=== PATIENT | female | born 1990 | race Caucasian/White ===

== ENCOUNTER → 2017-12-17 | Outpatient (CLI) | payer OTHER ==
[~2017-12-17] MED LIST: ACET325 PO; ACYC800 PO; ALBU90OI INH; AMOCLA500 PO; ANTOXYBENA OT; Acetaminophen650 M1 PO; Bactrim 400-801 EACH PO; Bactrim Ds Tab1 EACH PO; CALCA400CH PO; CEPH500 PO; CIPR250 PO; CIPR500 PO; CRUTCH4 USE; CYCL10 PO; Colace100 MG PO; FLUT44OIA IH; HYDACE5 PO; HYDR1TAB94 PO; Humalog100 UNIT/1 SC; Humalog100 UNIT/3 SC; IBUP400 PO; INSLI100I; INSLI100I SC; INSR10I SUBQ; INSULANI SUBQ; INSULANPEN; INSULANPEN SC; LEVO750 PO; LEVSOD100 PO; LEVSOD50 PO; Lantus100 UNIT/1 SC; METF500; METO10 PO; MULVITMINE PO; NEOPOLHCSU OT; Naprosyn500 MG PO; Norco 5-325 Ta1 EACH PO; ONDA4ODT PO; ONDA8ODT MM; SUMA25 PO; TYLENOL CHILDRENS; Ultram50 MG PO; Zithromax250 MG PO; Zofran Odt4 MG SL; [UNRECOGNIZED DRUG - OTHER]
[2017-12-17 13:43] LABS: Candida species (DNA Probe) Positive (NEGATIVE); G. vaginalis (DNA Probe) Positive (NEGATIVE); T. vaginalis (DNA Probe) Negative (NEGATIVE)
[2017-12-18 02:49] LABS: Source VAG/CERVIX
== END | disposition home or self-care (01) ==
LOC: LAB SHORT 09:45
PROVIDERS: Obstetrics & Gynecology
DX: Z01.411 Encounter for gynecological examination (general) (routine) with abnormal findings (principal); N76.0 Acute vaginitis
CPT/HCPCS: 87480; 87510; 87660; G0123

== ENCOUNTER 2018-12-21 15:57 | Observation (INO) | payer OTHER ==
[~2018-12-21] VITALS: Ht 154.9 cm; Wt 69.5 kg
[~2018-12-21 15:57] MED LIST changes: -INSULANPEN
[2018-12-21 16:38] LABS: Base Excess Venous -12.8 mmol/L; Bicarbonate Venous 15.3 mmol/L (24.0-30.0); PCO2 Venous 33.1 mmHg (38-42); PO2 Venous 50.6 mmHg (38-42); pH Blood Venous 7.25 (7.34-7.37)
[2018-12-21 16:42] LABS: BASOPHILS ABSOLUTE AUTO 0.07 K/mm3 (0.00-0.23); BASOPHILS PERCENT AUTO 1 % (0-2); EOSINOPHILS ABSOLUTE AUTO 0.05 K/mm3 (0.00-0.68); EOSINOPHILS PERCENT AUTO 1 % (0-6); Hematocrit 43.9 % (33.0-51.0); Hemoglobin 14.4 g/dL (11.5-16.0); IMMATURE GRAN ABSOLUTE AUTO 0.04 K/mm3 (0.00-0.10); IMMATURE GRAN PERCENT AUTO 0 % (0-1); LYMPHOCYTES ABSOLUTE AUTO 1.43 K/mm3 (0.84-5.20); LYMPHOCYTES PERCENT AUTO 14 % (21-46); MONOCYTES ABSOLUTE AUTO 0.84 K/mm3 (0.16-1.47); MONOCYTES PERCENT AUTO 8 % (4-13); Mean Corpuscular HGB 27.8 pg (26.0-34.0); Mean Corpuscular HGB Conc 32.8 g/dL (31.5-36.5); Mean Corpuscular Volume 85 fL (80-100); NEUTROPHILS ABSOLUTE AUTO 8.04 K/mm3 (1.96-9.15); NEUTROPHILS PERCENT AUTO 77 % (41-73); RDW Coefficient Variation 14.1 % (11.7-14.2); RDW Standard Deviation 43.6 fL (35.1-46.3); Red Blood Cell Count 5.18 M/mm3 (3.80-5.20); White Blood Cell Count 10.47 K/mm3 (4.00-11.30)
[2018-12-21 16:43] LABS: Mean Platelet Volume 11.2 fL (9.1-12.4); Platelet Count 298 K/mm3 (150-400)
[2018-12-21 17:05] LABS: Alanine Aminotransfer (ALT/SGP 20 U/L (12-78); Albumin, Blood 3.6 g/dL (3.4-5.0); Albumin/Globulin Ratio 0.8 (0.8-1.8); Alk Phos 130 U/L (50-136); Anion Gap 18 mmol/L (6-16); Aspartate Aminotrans (AST/SGOT 16 U/L (12-37); Bilirubin, Total 0.8 mg/dL (0.1-1.0); Blood Urea Nitrogen 16 mg/dL (8-24); CO2, Blood 14 mmol/L (21-32); Calcium, Blood 8.7 mg/dL (8.5-10.1); Chloride, Blood 102 mmol/L (98-108); Creatinine, Blood 0.89 mg/dL (0.40-1.00); Globulin, Blood 4.5 g/dL (2.2-4.0); Glomerular Filtration Rate >60 (60-); Glucose, Blood 448 mg/dL (70-99); Potassium, Blood 4.1 mmol/L (3.5-5.5); Sodium, Blood 134 mmol/L (136-145); Total Protein, Blood 8.1 g/dL (6.4-8.2)
[2018-12-21 18:29] LABS: Source, Urine Clean Catch
[2018-12-21 18:32] LABS: Bilirubin, Urine Neg (Neg); Blood, Urine Neg (Neg); Glucose Qualitative, Urine 4+ (Neg); Ketones, Urine 4+ (Neg); Leukocyte Esterase, Urine Neg (Neg); Nitrite, Urine Neg (Neg); Protein, Urine Neg (Neg); Urobilinogen, Urine NORM (Normal)
[2018-12-21 18:48] LABS: Appearance, Urine Clear (Clear); Color, Urine Yellow (P-Yellow)
[2018-12-21] MEDS ORDERED: Synthroid25 MCG PO (20:59)
[2018-12-21 23:07] LABS: Anion Gap 12 mmol/L (6-16); Blood Urea Nitrogen 14 mg/dL (8-24); CO2, Blood 19 mmol/L (21-32); Calcium, Blood 8.4 mg/dL (8.5-10.1); Chloride, Blood 113 mmol/L (98-108); Creatinine, Blood 0.78 mg/dL (0.40-1.00); Glomerular Filtration Rate >60 (60-); Glucose, Blood 209 mg/dL (70-99); Potassium, Blood 3.4 mmol/L (3.5-5.5)
[2018-12-21 23:11] LABS: Sodium, Blood 144 mmol/L (136-145)
[2018-12-22 04:09] LABS: Adenovirus Not Detected (NOT DETECT); Bordetella pertussis Not Detected (NOT DETECT); Chlamydophila pneumoniae Not Detected (NOT DETECT); Coronavirus 229E Not Detected (NOT DETECT); Coronavirus HKU1 Not Detected (NOT DETECT); Coronavirus NL63 Not Detected (NOT DETECT); Coronavirus OC43 Not Detected (NOT DETECT); Human Metapneumovirus Not Detected (NOT DETECT); Human Rhinovirus/Enterovirus Not Detected (NOT DETECT); Influenza A Not Detected (NOT DETECT); Influenza A/2009-H1 Not Detected (NOT DETECT); Influenza A/H1 Not Detected (NOT DETECT); Influenza A/H3 Not Detected (NOT DETECT); Influenza B Not Detected (NOT DETECT); Mycoplasma pneumoniae Not Detected (NOT DETECT); Parainfluenza Virus 1 Not Detected (NOT DETECT); Parainfluenza Virus 2 Not Detected (NOT DETECT); Parainfluenza Virus 3 Not Detected (NOT DETECT); Parainfluenza Virus 4 Not Detected (NOT DETECT); Respiratory Syncytial Virus Not Detected (NOT DETECT)
[2018-12-22 04:53] LABS: Hematocrit 33.8 % (33.0-51.0); Hemoglobin 11.5 g/dL (11.5-16.0); Mean Corpuscular HGB 27.9 pg (26.0-34.0); Mean Platelet Volume 10.9 fL (9.1-12.4); Platelet Count 265 K/mm3 (150-400); RDW Coefficient Variation 14.2 % (11.7-14.2); RDW Standard Deviation 41.7 fL (35.1-46.3); Red Blood Cell Count 4.12 M/mm3 (3.80-5.20); White Blood Cell Count 8.41 K/mm3 (4.00-11.30)
[2018-12-22 04:55] LABS: Mean Corpuscular Volume 82 fL (80-100)
[2018-12-22 05:17] LABS: Anion Gap 9 mmol/L (6-16); Blood Urea Nitrogen 10 mg/dL (8-24); Bun/Creatinine Ratio 16.1 (12.0-20.0); CO2, Blood 20 mmol/L (21-32); Calcium, Blood 7.9 mg/dL (8.5-10.1); Chloride, Blood 113 mmol/L (98-108); Creatinine, Blood 0.62 mg/dL (0.40-1.00); Glomerular Filtration Rate >60 (60-); Glucose, Blood 189 mg/dL (70-99); Potassium, Blood 3.7 mmol/L (3.5-5.5); Sodium, Blood 142 mmol/L (136-145)
[2018-12-22 05:34] LABS: Alanine Aminotransfer (ALT/SGP 13 U/L (12-78); Albumin, Blood 2.5 g/dL (3.4-5.0); Albumin/Globulin Ratio 0.7 (0.8-1.8); Alk Phos 97 U/L (50-136); Anion Gap 8 mmol/L (6-16); Aspartate Aminotrans (AST/SGOT 11 U/L (12-37); Bilirubin, Total 0.7 mg/dL (0.1-1.0); Blood Urea Nitrogen 10 mg/dL (8-24); Bun/Creatinine Ratio 16.4 (12.0-20.0); CO2, Blood 20 mmol/L (21-32); Calcium, Blood 7.8 mg/dL (8.5-10.1); Chloride, Blood 113 mmol/L (98-108); Creatinine, Blood 0.61 mg/dL (0.40-1.00); Globulin, Blood 3.6 g/dL (2.2-4.0); Glomerular Filtration Rate >60 (60-); Glucose, Blood 185 mg/dL (70-99); Potassium, Blood 3.7 mmol/L (3.5-5.5); Sodium, Blood 141 mmol/L (136-145); Total Protein, Blood 6.1 g/dL (6.4-8.2)
[2018-12-22 11:07] LABS: Anion Gap 11 mmol/L (6-16); Blood Urea Nitrogen 9 mg/dL (8-24); Bun/Creatinine Ratio 13.9 (12.0-20.0); CO2, Blood 19 mmol/L (21-32); Calcium, Blood 8.4 mg/dL (8.5-10.1); Chloride, Blood 110 mmol/L (98-108); Creatinine, Blood 0.65 mg/dL (0.40-1.00); Glomerular Filtration Rate >60 (60-); Glucose, Blood 288 mg/dL (70-99); Potassium, Blood 3.6 mmol/L (3.5-5.5); Sodium, Blood 140 mmol/L (136-145)
== END 2018-12-22 12:35 | disposition home or self-care (01) ==
LOC: ER 15:57 → ICUW 15:58
PROVIDERS: Emergency Medicine; Physician Assistant; ADMIT Internal Medicine
DX: E10.10 Type 1 diabetes mellitus with ketoacidosis without coma (principal); E86.0 Dehydration; F12.90 Cannabis use, unspecified, uncomplicated; E03.9 Hypothyroidism, unspecified; Z79.899 Other long term (current) drug therapy
CPT/HCPCS: 36415; 71046; 80048; 80053; 81003; 81025; 82803; 82947; 85025; 85027; 87486; 87581; 87633; 87798; 96365; 96366; 96375; 96376; 99285-25; G0378; J1815; J2405; J3480; J7030; J7042

== ENCOUNTER → 2019-08-04 | Outpatient (CLI) | payer OTHER ==
[~2019-08-04] MED LIST changes: +Synthroid25 MCG PO
== END ==
LOC: PLD 08:31 → LAB SHORT 08:31
DX: D22.62 Melanocytic nevi of left upper limb, including shoulder (principal)
CPT/HCPCS: 88305

== ENCOUNTER 2021-08-12 13:43 | Inpatient (IN) | payer OTHER ==
[~2021-08-12] VITALS: Ht 157.5 cm; Wt 82.5 kg
[2021-08-12 14:41] LABS: BASOPHILS ABSOLUTE AUTO 0.09 K/mm3 (0.00-0.23); BASOPHILS PERCENT AUTO 1 % (0-2); EOSINOPHILS ABSOLUTE AUTO 0.32 K/mm3 (0.00-0.68); EOSINOPHILS PERCENT AUTO 3 % (0-6); Hematocrit 39.9 % (33.0-51.0); Hemoglobin 13.6 g/dL (11.5-16.0); IMMATURE GRAN ABSOLUTE AUTO 0.04 K/mm3 (0.00-0.10); IMMATURE GRAN PERCENT AUTO 0 % (0-1); LYMPHOCYTES ABSOLUTE AUTO 4.17 K/mm3 (0.84-5.20); LYMPHOCYTES PERCENT AUTO 34 % (21-46); MONOCYTES ABSOLUTE AUTO 0.81 K/mm3 (0.16-1.47); MONOCYTES PERCENT AUTO 7 % (4-13); Mean Corpuscular HGB 29.4 pg (26.0-34.0); Mean Corpuscular HGB Conc 34.1 g/dL (31.5-36.5); Mean Corpuscular Volume 86 fL (80-100); Mean Platelet Volume 12.1 fL (9.1-12.4); NEUTROPHILS ABSOLUTE AUTO 6.94 K/mm3 (1.96-9.15); NEUTROPHILS PERCENT AUTO 56 % (41-73); Platelet Count 387 K/mm3 (150-400); RDW Coefficient Variation 12.7 % (11.7-14.2); RDW Standard Deviation 39.8 fL (35.1-46.3); Red Blood Cell Count 4.62 M/mm3 (3.80-5.20); White Blood Cell Count 12.37 K/mm3 (4.00-11.30)
[2021-08-12 14:59] LABS: Alanine Aminotransfer (ALT/SGP 20 U/L (12-78); Albumin, Blood 2.7 g/dL (3.4-5.0); Albumin/Globulin Ratio 0.5 (0.8-1.8); Alk Phos 134 U/L (50-136); Anion Gap 13 mmol/L (6-16); Aspartate Aminotrans (AST/SGOT 23 U/L (12-37); Bilirubin, Total 0.3 mg/dL (0.1-1.0); Blood Urea Nitrogen 25 mg/dL (8-24); Bun/Creatinine Ratio 29.7 (12.0-20.0); CO2, Blood 22 mmol/L (21-32); Calcium, Blood 8.6 mg/dL (8.5-10.1); Chloride, Blood 89 mmol/L (98-108); Creatinine, Blood 0.84 mg/dL (0.40-1.00); Globulin, Blood 5.1 g/dL (2.2-4.0); Glomerular Filtration Rate >60 (60-); Glucose, Blood 836 mg/dL (70-99); Potassium, Blood 4.1 mmol/L (3.5-5.5); Sodium, Blood 124 mmol/L (136-145); Total Protein, Blood 7.8 g/dL (6.4-8.2)
[2021-08-12 16:25] LABS: Source, Urine Catheter
[2021-08-12 16:32] LABS: Appearance, Urine Clear (Clear); Bilirubin, Urine Neg (Neg); Blood, Urine 3+ (Neg); Color, Urine Yellow (P-Yellow); Glucose Qualitative, Urine 4+ (Neg); Ketones, Urine 2+ (Neg); Leukocyte Esterase, Urine Neg (Neg); Nitrite, Urine Pos (Neg); Protein, Urine 3+ (Neg); Urobilinogen, Urine NORM (Normal)
[2021-08-12] MEDS ORDERED: INSULANPEN SC (16:51)
[2021-08-12] MEDS ORDERED: FURO20 PO (16:53)
[2021-08-12] MEDS ORDERED: HUMALOG KW100 UNIT/1 SC (16:53)
[2021-08-12] MEDS ORDERED: GABA300 PO (16:53)
[2021-08-12] MEDS ORDERED: ZYRTEC10 M2 PO (16:53)
[2021-08-12] MEDS ORDERED: LEVSOD25 PO (16:53)
[2021-08-12 16:54] LABS: Bacteria Mod /hpf; Squamous Epithelial Cells Rare /hpf (Few); White Blood Cells, Urine 0-2 /hpf (0-5)
[2021-08-12 16:55] LABS: Amorphous Mod (0-Heavy)
[2021-08-12 16:58] LABS: U Amphetamine Screen Not Detected; U Barbituate Screen Not Detected; U Benzodiazapine Screen Not Detected; U Buprenorphine Screen Not Detected; U Cocaine Screen Not Detected; U Methadone Screen Not Detected; U Methamphetamine Screen Not Detected; U Opiates Screen Not Detected; U Oxycodone Screen Not Detected; U Phencyclidine Screen Not Detected; U Propoxyphene Screen Not Detected
[2021-08-12 16:59] LABS: U Cannabinoids Screen DETECTED
[2021-08-12 17:12] LABS: SARS-Cov-2 (COVID-19) PCR, MMC POSITIVE (NEGATIVE)
--- NOTE | 2021-08-12 19:16 | NUR ---
PT ADMITTED TO ICU FROM ER AT 1850. PT MINIMALLY RESPONSIVE, WHEN STIMULATED PT APPEARED TO EXHIBITE DECORTICATE POSTURING. INSULIN GTT AT BEDSIDE NOT INFUSING, BS 273 ON ADMIT. NS W 40MEQ K+ INFUSING AT 250CC/HR. PT HYPERTENSIVE, AFEBRILE. AT APPROX 1900 PT APPEARED TO HAVE A SEIZURE, JAW LOCKED, APNEIC, SATS DROPPED INTO 80'S, LIMBS RIGID, PT THEN STARTED TO SHOW DECEREBRATE POSTURING. EYES MIDLINE. NASAL TRUMPET PLACED TO LEFT NARE, O2 PLACED AT 2L. HYDRALIZINE GIVEN FOR HYPERTENSION. DR SANTOS CALLED AND NOTIFIED. CRITICAL CARE CONSULT BEING CONSIDERED. REPORT GIVEN TO ONCOMING ALONDRA.
--- NOTE | 2021-08-12 19:30 | NUR ---
ASSUMED CARE REPORT RECIEVED FROM ALONDRA BARTON. PATIENT LYING IN BED W/ EYES CLOSED. SPO2 IN MID 90'S W/ 2LPM VIA NC. NPA IN RT NARE. PEARSON PATENT AND DRAINING TO GRAVITY. KCL AND INSULIN GTT OFF; NOTHING INF AT THIS TIME. PATIENT HAS 20G IN RT AC AND A 20G IN LT FOREARM. PATIENT APPEARS TO BE GRIPPING HANDS/ARMS TOWARDS CHEST IN A DECORTICATE POSTURE AND MAKING ABNORMAL RHYTHMIC MOVEMENTS W/ ARMS AND HEAD W/O PURPOSE. PATIENT IS HYPERTENSIVE AND TACHYCARDIC AT THIS TIME.
[2021-08-12 20:54] LABS: Ethanol (Alcohol), Blood, Med <3 mg/dL
--- NOTE | 2021-08-12 20:55 | NUR ---
ETT SECURED AT 25 CM AT TEETH
[2021-08-12 21:05] LABS: Acetaminophen, Random <2.0 ug/mL (10.0-30.0)
[2021-08-12 22:07] LABS: PCO2 Arterial 32.2 mmHg (35-45); PO2 Arterial 101 mmHg (80-100); pH Blood Arterial 7.53 (7.35-7.45)
[2021-08-13 00:31] LABS: Anion Gap 6 mmol/L (6-16); Blood Urea Nitrogen 20 mg/dL (8-24); Bun/Creatinine Ratio 23.9 (12.0-20.0); CO2, Blood 26 mmol/L (21-32); Calcium, Blood 8.3 mg/dL (8.5-10.1); Chloride, Blood 107 mmol/L (98-108); Creatinine, Blood 0.84 mg/dL (0.40-1.00); Glomerular Filtration Rate >60 (60-); Glucose, Blood 148 mg/dL (70-99); Potassium, Blood 4.1 mmol/L (3.5-5.5)
[2021-08-13 00:33] LABS: Sodium, Blood 139 mmol/L (136-145)
[2021-08-13 03:33] LABS: BASOPHILS ABSOLUTE AUTO 0.05 K/mm3 (0.00-0.23); BASOPHILS PERCENT AUTO 0 % (0-2); EOSINOPHILS ABSOLUTE AUTO 0.04 K/mm3 (0.00-0.68); EOSINOPHILS PERCENT AUTO 0 % (0-6); Hematocrit 33.5 % (33.0-51.0); Hemoglobin 11.6 g/dL (11.5-16.0); IMMATURE GRAN ABSOLUTE AUTO 0.06 K/mm3 (0.00-0.10); IMMATURE GRAN PERCENT AUTO 0 % (0-1); LYMPHOCYTES ABSOLUTE AUTO 2.99 K/mm3 (0.84-5.20); LYMPHOCYTES PERCENT AUTO 19 % (21-46); MONOCYTES PERCENT AUTO 11 % (4-13); Mean Corpuscular HGB 29.3 pg (26.0-34.0); Mean Corpuscular HGB Conc 34.6 g/dL (31.5-36.5); Mean Corpuscular Volume 85 fL (80-100); Mean Platelet Volume 11.5 fL (9.1-12.4); NEUTROPHILS ABSOLUTE AUTO 11.36 K/mm3 (1.96-9.15); NEUTROPHILS PERCENT AUTO 70 % (41-73); Platelet Count 298 K/mm3 (150-400); RDW Coefficient Variation 12.5 % (11.7-14.2); RDW Standard Deviation 38.1 fL (35.1-46.3); Red Blood Cell Count 3.96 M/mm3 (3.80-5.20)
[2021-08-13 03:52] LABS: Alanine Aminotransfer (ALT/SGP 15 U/L (12-78); Albumin, Blood 1.9 g/dL (3.4-5.0); Albumin/Globulin Ratio 0.5 (0.8-1.8); Alk Phos 82 U/L (50-136); Anion Gap 5 mmol/L (6-16); Aspartate Aminotrans (AST/SGOT 28 U/L (12-37); Bilirubin, Total 0.3 mg/dL (0.1-1.0); Blood Urea Nitrogen 20 mg/dL (8-24); Bun/Creatinine Ratio 21.4 (12.0-20.0); CO2, Blood 29 mmol/L (21-32); Calcium, Blood 7.7 mg/dL (8.5-10.1); Chloride, Blood 106 mmol/L (98-108); Creatinine, Blood 0.94 mg/dL (0.40-1.00); Glomerular Filtration Rate >60 (60-); Glucose, Blood 159 mg/dL (70-99); Potassium, Blood 3.6 mmol/L (3.5-5.5); Sodium, Blood 140 mmol/L (136-145); Total Protein, Blood 5.9 g/dL (6.4-8.2)
[2021-08-13 05:00] LABS: PCO2 Arterial 36.7 mmHg (35-45); PO2 Arterial 137 mmHg (80-100); pH Blood Arterial 7.47 (7.35-7.45)
--- NOTE | 2021-08-13 06:05 | NUR ---
SHIFT SUMMARY/INTUBATION 2008: PATIENT INTUBATED @ [facility] BY DR. TRACEY; RT AND RN AT BEDSIDE. SEE PRODEDURAL NOTE ON INTUBATION. VENT SET AT 16/350/5/30% W/ SPO2 MAINTAINED AT 99-100%. PATIENT REMAINED ON SAME VENT SETTINGS MENTIONED ABOVE. PROPOFOL TITRATED DOWN TO 15MCG/KG/MIN W/ SUPPLEMENTAL ATIVAN IVP PRIOR TO INCREASED STIMULI. PATIENT BEGAN SHIFT W/ DECORTICATE POSTURING AND TRANSITIONED TO DECERIBRATE POSTURING CONCERNING FOR SEIZURES AND WITNESSED BY MD. PUPIL LIGHT REACTION IN RT EYE IMPROVED FROM NO REACTION TO NOW SLUGGISH; LT EYE REMAINS UNRESPONSIVE TO LIGHT, BUT BOTH EQUAL IN SIZE AND ROUND. CBG Q1H PER DR. TRACEY; INSULIN GTT REMAINED OFF. F/U CT HEAD COMPLETED VIRTUAL RADIOLOGY REPORT RECIEVED BY DR. TRACEY.
--- NOTE | 2021-08-13 11:24 | NUR ---
CARE OF PT ASSUMED AT 0700. REST ROOM MATRON AT BEDSIDE AROUND 0700, ASSITED TECH W EEG. PT WITH FREQUENT INTERMIT. DECORTICATE POSTURING. AT TIMES PT POSTURES TO ANY STIMULI AND AT OTHER TIMES NO REACTION TO PAINFUL STIMULI. PUPILS ARE FIXED AND NONREACTIVE TO LIGHT AT 3MM. R PUPIL MAY BE MINIMALLY LARGER WITH A POSSIBLE OVAL SHAPE. PT HAS NO COUGH NO GAG NO SWALLOW. PT DOES ROOT AND SUCKLE ON ETT WHEN STIMULATED. PT HAS + BABINSKI BILAT. PROPOFOL TURNED OFF FOR EEG, POSTURING INCREASED AT THIS TIME. PROPOFOL INCREASED TO 30MCG POST PROCEDURE. DR MEREDITH/DR GENTILE AT BEDSIDE AROUND 0800, FULL UPDATE GIVEN. LP SUCCESSFULLY COMPLETED AT [address] MEREDITH AND DR GENTILE. LP PRESSURE 32, FLUID CLEAR AND SENT TO LAB. PT HAS HAD NO PURPOSEFUL MOVEMENT. LEVOPHED AT 2MCG STARTED TO KEEP MAP >65. PICC LINE BEING PLACED NOW FOR PRESSORS. PT'S SISTER JOSIANE IS NEXT TO KIN. PARENTS ARE ESTRANGED PER SISTER. FATHER'S LOCATION IS UNKNOWN (POSSIBLY LIVES IN [facility]) MOTHER HAS SUBSTANCE ABUSE ISSUES WITH METH AND HEROIN PER SISTER. PT IS NOT IN A CURRENT RELATIONSHIP AND LIVES W ROOM MATE TRICIA. BLOOD SUGARS HAVE BEEN STABLE.
[2021-08-13 12:21] LABS: Appearance, CSF Clear (Clear); Color, CSF No Color (No Color); Glucose, CSF 115 mg/dL (40-70)
[2021-08-13 12:23] LABS: Automated CSF WBC Count 0.003 K/mm3 (0-5); WBC Count, CSF 3 /mm3 (0-5)
[2021-08-13 12:24] LABS: RBC Count, CSF 0 /mm3 (0-0)
[2021-08-13 12:26] LABS: Eosinophils, CSF 7 % (0-0); Lymphocytes, CSF 40 % (40-80); Monocytes, CSF 7 % (15-45); Neutrophils, CSF 47 % (0-6)
[2021-08-13 12:58] LABS: RBC Count, CSF 0 /mm3 (0-0); WBC Count, CSF 1 /mm3 (0-5)
--- NOTE | 2021-08-13 12:58 | NUR ---
NO CHANGE IN NEURO STATUS, PT REMAINS UNRESPONSIVE W PUPILS FIX AT 3/3MM. NO GAG, COUGH, SWALLOW. DECEREBRATE POSTURING TO ANY STIUMLI OTHERWISE NO OTHER MOVEMENT NOTED. PICC PLACED TO [facility].
[2021-08-13 12:59] LABS: Color, CSF No Color (No Color)
[2021-08-13 13:03] LABS: Appearance, CSF Clear (Clear)
[2021-08-13 13:06] LABS: Lymphocytes, CSF 17 % (40-80); Monocytes, CSF 8 % (15-45); Neutrophils, CSF 75 % (0-6)
[2021-08-13 14:10] LABS: Cryptococcus Neoformans/Gattii Not Detected (NOT DETECT); Enterovirus Not Detected (NOT DETECT); Escherichia Coli K1 Not Detected (NOT DETECT); Haemophilus Influenza Not Detected (NOT DETECT); Herpes Simplex Virus 1 Not Detected (NOT DETECT); Herpes Simplex Virus 2 Not Detected (NOT DETECT); Human Herpesvirus 6 Not Detected (NOT DETECT); Human Parechovirus Not Detected (NOT DETECT); Listeria Monocytogenes Not Detected (NOT DETECT); Neisseria Meningitidis Not Detected (NOT DETECT); Streptococcus Agalactiae Not Detected (NOT DETECT); Streptococcus Pneumoniae Not Detected (NOT DETECT); Varicella Zoster Virus Not Detected (NOT DETECT)
--- NOTE | 2021-08-13 14:57 | NUR ---
PIVOT TUBE FEEDS STARTED AT GOAL RATE OF 30CC/HR. 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 NO OTHER CHANGES
--- NOTE | 2021-08-13 15:58 | NUR ---
DURING SUCTIONING DOWN ETT PT DID BRING ARMS INWARD AND ACROSS CHEST; RIGID. APPEARED TO BE DECORTICATE POSTURING AND THEN DECEREBRATE POSTURING AFTERWARDS. NO OTHER CHANGES. PUPILS REMAIN FIXED/NON REACTIVE AT 3/3MM. THICK YELLOW SPUTUM SAMPLE SENT TO LAB
--- NOTE | 2021-08-13 17:14 | NUR ---
PT TO BE TRANSFERED TO MOBILE, OR. AWAITING BED ASSIGNMENT. FAMILY NOTIFIED.
--- NOTE | 2021-08-13 18:33 | NUR ---
REPORT CALLED INTO KEVIN CANTU AT [facility]. PT BREATHING OVER VENT AND COUGHED A FEW TIMES. ABSENT GAG AND SWALLOW. PUPILS REMAIN FIXED AT 3/3MM. PT CONT TO HAVE DECEREBRATE POSTURING. PROPOFOL AT 30MCG, LEVOPHED AT 3MCG
--- NOTE | 2021-08-13 18:57 | NUR ---
LEVOPHED PLACED ON STANDBY FOR HYPERTENSION.
--- NOTE | 2021-08-13 19:04 | NUR ---
PT WITH IRREGULAR RESP ON VENT WELL HYPERTENSIVE, PT IS NOT BRADYV=CARIC, HEART RATE 100-110. DR. MEREDITH NOTIFIED. RT AT BEDSIDE.
--- NOTE | 2021-08-13 19:30 | NUR ---
ASSUMED CARE REPORT RECEIVED FROM ALONDRA ARELLANO. PATIENT SEDATED W/ PROPOFOL @ 30MCG/KG/MIN; EYES CLOSED AND INTUBATED ON AC/VC 16/350/5/30% W/ SPO2 MID 90'S-100%. IRREGULAR RESPIRATORY PATTERN OBSERVED. PICC LINE PRESENT TO [facility] PROPOFOL, NS @ 75ML/HR, NS TKO, AND LEVOPHED ON SB. 18G PERIPHERAL IV PRESENT IN RT WRIST, SALINE LOCKED. PATIENT IS ST W/ RATE 100'S-110'S. PIVOT 1.5 INF @ GOAL RATE OF 30ML/HR W/ 30ML Q4H WATER FLUSHES. AWAITING TRANSFER TO [facility] AT THIS TIME.
--- NOTE | 2021-08-13 23:01 | NUR ---
TRANSFER TO [facility]/REPORT CALLED TO RN NO CHANGES TO PATIENT STATUS DURING SHIFT PRIOR TO TRANSPORT. GROUND TRANSPORT TEAM ARRIVED AND REPORT GIVEN TO FLIGHT RN AND REPROT CALLED TO ALONDRA TORRES @ [facility]. PROPOFOL AND LEVOPHED GIVEN TO TRANSFER TEAM AND 1 BAG OF PATIENT BELONGINGS GIVEN TO TEAM. PATIENT LEFT [facility] @ 2047.
== END 2021-08-13 22:48 | disposition short-term general hospital (02) | DRG 100 ==
LOC: ER 13:43 → ERHOLD 16:11 → ICUE 16:11
PROVIDERS: Emergency Medicine; Family Medicine; Internal Medicine; Internal Medicine Critical Care Medicine; ADMIT Internal Medicine
PROC: 0BH17EZ Insertion of Endotracheal Airway into Trachea, Via Natural or Artificial Opening (ICD-10-PCS; 2021-08-12)
PROC: 5A1945Z Respiratory Ventilation, 24-96 Consecutive Hours (ICD-10-PCS; 2021-08-12)
PROC: 3E033XZ Introduction of Vasopressor into Peripheral Vein, Percutaneous Approach (ICD-10-PCS; principal; 2021-08-13)
PROC: 009U3ZX Drainage of Spinal Canal, Percutaneous Approach, Diagnostic (ICD-10-PCS; 2021-08-13)
DX: G40.901 Epilepsy, unspecified, not intractable, with status epilepticus (principal); G92.9 Unspecified toxic encephalopathy; U07.1 COVID-19; J96.90 Respiratory failure, unspecified, unspecified whether with hypoxia or hypercapnia; E86.0 Dehydration; I16.0 Hypertensive urgency; I95.2 Hypotension due to drugs; T42.75XA Adverse effect of unspecified antiepileptic and sedative-hypnotic drugs, initial encounter; E10.65 Type 1 diabetes mellitus with hyperglycemia; G43.909 Migraine, unspecified, not intractable, without status migrainosus; E03.9 Hypothyroidism, unspecified; Z86.16 Personal history of COVID-19; Z98.51 Tubal ligation status; Z79.4 Long term (current) use of insulin; Z79.899 Other long term (current) drug therapy; Z87.891 Personal history of nicotine dependence
CPT/HCPCS: 31500; 36415; 36569; 36600; 51702; 70450; 71045; 80048; 80053; 80177; 80185; 80186; 81001; 82140; 82803; 82945; 82947; 84157; 84439; 84443; 84702; 85025; 86788; 86789; 87070; 87077; 87086; 87186; 87205; 87483; 89051; 94002; 94003; 95819; 96372-59; 96374-59; 99285-25; A9270; C1751; C9113; G0480; J0133; J0360; J0696; J1650; J1815; J1953; J2060; J2150; J2250; J2704; J3370; J3480; J7030; J7050; J7060; Q2009; U0004

== ENCOUNTER → 2022-01-16 | Outpatient (CLI) | payer OTHER ==
[~2022-01-16] MED LIST changes: +ATORVASTATIN CA20 MG PO; +FURO20 PO; +GABA300 PO; +HUMALOG KW100 UNIT/1 SC; +LEVETIRACETAM PO; +LEVSOD25 PO; +LOSARTAN POTASS25 M2 PO; +METR500 PO; +PHENY30ER PO; +ZYRTEC10 M2 PO
== END | disposition home or self-care (01) ==
LOC: LAB SHORT 19:33 → LAB 19:33
PROVIDERS: Physician Assistant
DX: Z01.419 Encounter for gynecological examination (general) (routine) without abnormal findings (principal); R39.14 Feeling of incomplete bladder emptying
CPT/HCPCS: 87086

== ENCOUNTER 2022-09-25 14:22 | Emergency (ER) | payer OTHER ==
[~2022-09-25] VITALS: Ht 157.5 cm; Wt 79.4 kg
[2022-09-25 15:56] LABS: BASOPHILS ABSOLUTE AUTO 0.08 K/mm3 (0.00-0.23); BASOPHILS PERCENT AUTO 1 % (0-2); EOSINOPHILS ABSOLUTE AUTO 0.26 K/mm3 (0.00-0.68); EOSINOPHILS PERCENT AUTO 3 % (0-6); Hematocrit 36.4 % (33.0-51.0); Hemoglobin 12.1 g/dL (11.5-16.0); IMMATURE GRAN ABSOLUTE AUTO 0.03 K/mm3 (0.00-0.10); IMMATURE GRAN PERCENT AUTO 0 % (0-1); LYMPHOCYTES ABSOLUTE AUTO 2.81 K/mm3 (0.84-5.20); LYMPHOCYTES PERCENT AUTO 28 % (21-46); MONOCYTES ABSOLUTE AUTO 0.77 K/mm3 (0.16-1.47); MONOCYTES PERCENT AUTO 8 % (4-13); Mean Corpuscular HGB 28.1 pg (26.0-34.0); Mean Corpuscular HGB Conc 33.2 g/dL (31.5-36.5); Mean Corpuscular Volume 85 fL (80-100); Mean Platelet Volume 10.5 fL (9.1-12.4); NEUTROPHILS ABSOLUTE AUTO 6.07 K/mm3 (1.96-9.15); NEUTROPHILS PERCENT AUTO 61 % (41-73); Platelet Count 379 K/mm3 (150-400); RDW Coefficient Variation 13.4 % (11.7-14.2); RDW Standard Deviation 41.2 fL (35.1-46.3); White Blood Cell Count 10.02 K/mm3 (4.00-11.30)
[2022-09-25 16:12] LABS: Albumin, Blood 2.2 g/dL (3.4-5.0); Albumin/Globulin Ratio 0.5 (0.8-1.8); Bilirubin, Total 0.3 mg/dL (0.1-1.0); Bun/Creatinine Ratio 19.2 (12.0-20.0); Calcium, Blood 8.6 mg/dL (8.5-10.1); Creatinine, Blood 1.51 mg/dL (0.40-1.00); Globulin, Blood 4.5 g/dL (2.2-4.0); Potassium, Blood 4.7 mmol/L (3.5-5.5); Total Protein, Blood 6.7 g/dL (6.4-8.2)
[2022-09-25] MEDS ORDERED: HUMALOG100 UNIT/1 (19:53)
[2022-09-25] MEDS ORDERED: INSULANI SC (19:54)
[2022-09-25] MEDS ORDERED: GABA300 PO ×2 (19:55→19:56)
[2022-09-25] MEDS ORDERED: LEVSOD25 PO (19:56)
[2022-09-25] MEDS ORDERED: ATOR20 (19:57)
[2022-09-25] MEDS ORDERED: LOSA50 PO (19:57)
[2022-09-25] MEDS ORDERED: LASIX80 MG PO (19:57)
== END 2022-09-25 21:14 | disposition home or self-care (01) ==
LOC: ER 14:22
PROVIDERS: Physician Assistant
DX: I10 Essential (primary) hypertension (principal); E10.9 Type 1 diabetes mellitus without complications; E88.09 Other disorders of plasma-protein metabolism, not elsewhere classified; R60.0 Localized edema; Z87.891 Personal history of nicotine dependence; Z79.4 Long term (current) use of insulin; Z79.899 Other long term (current) drug therapy
CPT/HCPCS: 36415; 80053; 81025; 83880; 84484; 85025; 99284

== ENCOUNTER → 2022-12-23 | Outpatient (CLI) | payer OTHER ==
[~2022-12-23] MED LIST changes: +AMLO10 PO; +ATOR20 PO; +BUDESONIDE1 MG/2 M5 IH; +BUME1 PO; +CATAPRES0.1 MG PO; +Diflucan100 MG PO; +HUMALOG100 UNIT/1; +INSULANI SC; +LASIX80 MG PO; +LOSA50 PO; +SPIR50 PO
[2022-12-23 18:30] LABS: Source, Urine Voided
[2022-12-23 19:19] LABS: Appearance, Urine Cloudy (Clear); Bilirubin, Urine Neg (Neg); Blood, Urine 1+ (Neg); Glucose Qualitative, Urine Neg (Neg); Ketones, Urine Neg (Neg); Leukocyte Esterase, Urine 2+ (Neg); Nitrite, Urine Neg (Neg); Protein, Urine 4+ (Neg); Urobilinogen, Urine NORM (Normal)
[2022-12-23 19:43] LABS: Color, Urine Pale Yellow (P-Yellow)
[2022-12-23 19:45] LABS: White Blood Cells, Urine 50-100 /hpf (0-5)
[2022-12-23 19:46] LABS: Bacteria Many /hpf; Granular Casts 0-2 /lpf (0); Red Blood Cells, Urine 0-2 /hpf (0-2); Squamous Epithelial Cells Mod /hpf (Few)
== END | disposition home or self-care (01) ==
LOC: LAB SHORT 12:00
PROVIDERS: Family Medicine
DX: R39.14 Feeling of incomplete bladder emptying (principal)
CPT/HCPCS: 81001; 87077; 87086; 87186

== ENCOUNTER 2023-01-10 11:34 | Inpatient (IN) | payer OTHER ==
[~2023-01-10] VITALS: Ht 154.9 cm; Wt 112.1 kg
[2023-01-10] MEDS ORDERED: CEPH500 PO (12:12)
[2023-01-10] MEDS ORDERED: ZEBUTAL 50-3251 EAC1 (12:13)
[2023-01-10] MEDS ORDERED: ZEBUTAL 50-3251 EAC1 PO (12:13)
[2023-01-10 12:57] LABS: BASOPHILS ABSOLUTE AUTO 0.07 K/mm3 (0.00-0.23); BASOPHILS PERCENT AUTO 1 % (0-2); EOSINOPHILS PERCENT AUTO 7 % (0-6); Hematocrit 29.9 % (33.0-51.0); Hemoglobin 9.5 g/dL (11.5-16.0); IMMATURE GRAN ABSOLUTE AUTO 0.02 K/mm3 (0.00-0.10); IMMATURE GRAN PERCENT AUTO 0 % (0-1); LYMPHOCYTES ABSOLUTE AUTO 2.09 K/mm3 (0.84-5.20); LYMPHOCYTES PERCENT AUTO 23 % (21-46); MONOCYTES ABSOLUTE AUTO 0.86 K/mm3 (0.16-1.47); MONOCYTES PERCENT AUTO 10 % (4-13); Mean Corpuscular HGB 27.5 pg (26.0-34.0); Mean Corpuscular HGB Conc 31.8 g/dL (31.5-36.5); Mean Corpuscular Volume 86 fL (80-100); Mean Platelet Volume 10.7 fL (9.1-12.4); NEUTROPHILS ABSOLUTE AUTO 5.36 K/mm3 (1.96-9.15); NEUTROPHILS PERCENT AUTO 60 % (41-73); Platelet Count 291 K/mm3 (150-400); RDW Coefficient Variation 13.9 % (11.7-14.2); RDW Standard Deviation 42.8 fL (35.1-46.3); Red Blood Cell Count 3.46 M/mm3 (3.80-5.20)
[2023-01-10 13:26] LABS: Albumin, Blood 2.2 g/dL (3.4-5.0); Albumin/Globulin Ratio 0.5 (0.8-1.8); Bilirubin, Total 0.2 mg/dL (0.1-1.0); Bun/Creatinine Ratio 17.7 (12.0-20.0); Calcium, Blood 8.4 mg/dL (8.5-10.1); Creatinine, Blood 2.6 mg/dL (0.40-1.00); Globulin, Blood 4.7 g/dL (2.2-4.0); Potassium, Blood 4.5 mmol/L (3.5-5.5); Thyroid Stimulating Hormone 13.5 uIU/mL (0.360-4.800); Total Protein, Blood 6.9 g/dL (6.4-8.2)
[2023-01-10 13:50] LABS: Magnesium, Blood 2.8 mg/dL (1.6-2.4); Phosphorus, Blood 5.1 mg/dL (2.5-4.9)
--- NOTE | 2023-01-10 18:41 | NUR ---
pt arrived to 326 via gurney from ED, report obtained, pt able to stand and tx indep, a/ox4, pleasant and cooperative with care, follows commands well, denies pain, states just sob, and pressure in her belly, lungs are clear t/o, resp even and unlabored, currently on 4 liters 02 via n/c, resp even and unlabored at rest, does get sob with exertion, no cough noted, hrr, +2 edema noted to b/l le, cap refill <3 sec, vs stable, afebrile, piv site clear and patent, btx4, abd round soft in upper quads, more firm in lower, reports only one void since she had bumex, is due for lasix now, skin c/w/d, esme clark, oriented to room layout and call sytem, call light in reach.
[2023-01-11 05:42] LABS: BASOPHILS ABSOLUTE AUTO 0.06 K/mm3 (0.00-0.23); BASOPHILS PERCENT AUTO 1 % (0-2); EOSINOPHILS ABSOLUTE AUTO 0.61 K/mm3 (0.00-0.68); EOSINOPHILS PERCENT AUTO 7 % (0-6); Hematocrit 27.5 % (33.0-51.0); Hemoglobin 8.6 g/dL (11.5-16.0); IMMATURE GRAN ABSOLUTE AUTO 0.02 K/mm3 (0.00-0.10); IMMATURE GRAN PERCENT AUTO 0 % (0-1); LYMPHOCYTES ABSOLUTE AUTO 2.19 K/mm3 (0.84-5.20); LYMPHOCYTES PERCENT AUTO 25 % (21-46); MONOCYTES ABSOLUTE AUTO 0.74 K/mm3 (0.16-1.47); MONOCYTES PERCENT AUTO 9 % (4-13); Mean Corpuscular HGB 27.2 pg (26.0-34.0); Mean Corpuscular HGB Conc 31.3 g/dL (31.5-36.5); Mean Corpuscular Volume 87 fL (80-100); Mean Platelet Volume 10.9 fL (9.1-12.4); NEUTROPHILS ABSOLUTE AUTO 4.99 K/mm3 (1.96-9.15); NEUTROPHILS PERCENT AUTO 58 % (41-73); Platelet Count 258 K/mm3 (150-400); RDW Standard Deviation 43.2 fL (35.1-46.3); Red Blood Cell Count 3.16 M/mm3 (3.80-5.20); White Blood Cell Count 8.61 K/mm3 (4.00-11.30)
[2023-01-11 06:14] LABS: Albumin, Blood 1.9 g/dL (3.4-5.0); Albumin/Globulin Ratio 0.5 (0.8-1.8); Bilirubin, Total 0.4 mg/dL (0.1-1.0); Bun/Creatinine Ratio 18.9 (12.0-20.0); Creatinine, Blood 2.64 mg/dL (0.40-1.00); Globulin, Blood 4.1 g/dL (2.2-4.0); Magnesium, Blood 2.8 mg/dL (1.6-2.4); Phosphorus, Blood 5.2 mg/dL (2.5-4.9); Potassium, Blood 4.3 mmol/L (3.5-5.5)
--- NOTE | 2023-01-11 06:58 | NUR ---
ACCOUNTING CLERKS SUPERVISOR SUMMARY: A&Ox4. PLEASANT AND COOPERATIVE WITH CARE. CALLS APPROPRIATELY AND IS ABLE TO COMMUNICATE NEEDS EFFECTIVELY. INDEPENDENT IN ROOM. INDEPENDENT IN ROOM. LBM >1 WEEK AGO. BOWEL PROTOCOL INITIATED LAST NIGHT WITHOUT RELIEF. STRICT Is/Os. RECEIVED 40mg IV LASIX AND 2mg IV BUMEX WITH OUTPUT OF 1300mL DURING SHIFT. BLEs 2+ EDEMA. SCHEDULED FOR ECHO TODAY. MAINTAINING SPO2 >92% 4L/min VIA NC. LABS ORDERED THIS AM; NO CRITICAL RESULTS RECEIVED AT THIS TIME. WILL REPORT TO ONCOMING RN.
--- NOTE | 2023-01-11 09:00 | NUR ---
pt laying in bed with eyes closed, wakes easily, s.o. in room, a/ox4, cooperative with care, follows commands well, denies pain at this time, states she slept ok, lungs are clear in upper bustos, dim course in bases, currently on 4 liters 02 via n/c, resp even and unlabored, states she might be breathing a bit better than when she came in, no cough noted, hrr, 2+ edema noted to b/l le, ppp+2, cap refill <3 sec, vs stable, afebrile, iv site to rac is clear and patent, btx4, abd round semi firm, voids without diff, pt hasn't had a bm in a while so started her on bowel care, skin c/w/d, esme clark, call light in reach.
--- NOTE | 2023-01-11 18:18 | NUR ---
pt doing ok, she states she has been voiding more today, still no bm, gave mom melvi, pt is asking for applejuice, spoke to her about just drinking water, to not raise blood sugars, she had a shower today, remains on four liters, no acute changes this shift. call light in reach.
--- NOTE | 2023-01-11 23:32 | NUR ---
PATIENT CALLED STAFF STATING HAVING DIFFICULTY CATCHING BREATH. SATTING 92% ON 5L/min VIA NC. BP 136/77, HR 101, ORAL TEMP 99.2 AND RESPIRATIONS OF 26. DIFFICULTY FINISHING SENTENCES. BLEs 3+ EDEMA. + FLUID BALANCE OF 1100 AFTER RECEIVING 4mg BUMETANIDE TODAY. CALL TO RT WHO ADMINISTERED BREATHING Tx. CALL TO DR DIETZ: ORDER FOR CXR, 2mg BUMETANIDE IV, BIPAP, CONTINUOUS BiOx AND TELE. PT DOING BETTER AFTER INITIATION OF BIPAP AND ADMINISTRATION OF BUMETANIDE.
[2023-01-12 06:12] LABS: BASOPHILS ABSOLUTE AUTO 0.04 K/mm3 (0.00-0.23); BASOPHILS PERCENT AUTO 1 % (0-2); EOSINOPHILS ABSOLUTE AUTO 0.35 K/mm3 (0.00-0.68); EOSINOPHILS PERCENT AUTO 5 % (0-6); Hematocrit 24.8 % (33.0-51.0); Hemoglobin 7.8 g/dL (11.5-16.0); IMMATURE GRAN ABSOLUTE AUTO 0.01 K/mm3 (0.00-0.10); IMMATURE GRAN PERCENT AUTO 0 % (0-1); LYMPHOCYTES ABSOLUTE AUTO 2.14 K/mm3 (0.84-5.20); LYMPHOCYTES PERCENT AUTO 32 % (21-46); MONOCYTES ABSOLUTE AUTO 0.71 K/mm3 (0.16-1.47); MONOCYTES PERCENT AUTO 11 % (4-13); Mean Corpuscular HGB 27.2 pg (26.0-34.0); Mean Corpuscular HGB Conc 31.5 g/dL (31.5-36.5); Mean Corpuscular Volume 86 fL (80-100); NEUTROPHILS ABSOLUTE AUTO 3.49 K/mm3 (1.96-9.15); NEUTROPHILS PERCENT AUTO 52 % (41-73); Platelet Count 243 K/mm3 (150-400); RDW Coefficient Variation 13.9 % (11.7-14.2); RDW Standard Deviation 42.8 fL (35.1-46.3); Red Blood Cell Count 2.87 M/mm3 (3.80-5.20); White Blood Cell Count 6.74 K/mm3 (4.00-11.30)
[2023-01-12 06:23] LABS: Albumin, Blood 1.8 g/dL (3.4-5.0); Anion Gap 5 mmol/L (6-16); Blood Urea Nitrogen 52 mg/dL (8-24); CO2, Blood 25 mmol/L (21-32); Calcium, Blood 8.2 mg/dL (8.5-10.1); Chloride, Blood 107 mmol/L (98-108); Creatinine, Blood 2.73 mg/dL (0.40-1.00); Glomerular Filtration Rate 23 (60-); Glucose, Blood 354 mg/dL (70-99); Phosphorus, Blood 5.2 mg/dL (2.5-4.9); Potassium, Blood 4.9 mmol/L (3.5-5.5); Sodium, Blood 137 mmol/L (136-145)
--- NOTE | 2023-01-12 06:44 | NUR ---
FIELD SALES TRAINER SUMMARY: A&Ox4. PLEASANT AND COOPERATIVE WITH CARE. CALLS APPROPRIATELY AND IS ABLE TO COMMUNICATE NEEDS EFFECTIVELY. EPISODE OF DYSPNEA AND SOB LAST NIGHT IN WHICH PT UNABLE TO CATCH BREATH. WAS SATTING 92% 5L/min VIA NC. PLACED ON BIPAP, ADDITIONAL IV DOSE BUMEX 2MG AND BEDSIDE CXR + LIKELY PNA. INITIATED CONTINUOUS BI-OX AND TELE. -100 FLUID BALANCE. AWAITING ECHO. LABS DRAWN THIS AM. NO CRITICAL VALUES RECEIVED AT THIS TIME. REPORT TO ONCOMING RN.
--- NOTE | 2023-01-12 18:03 | NUR ---
SHIFT SUMMARY PT INDEPENDENT IN TO BATHROOM. SOB IMPROVED FROM YESTERDAY WITH ACTIVITY. OFF BIPAP SINCE MORNING AND SATS IN LOW TO MID 90'S ON 5L/M. WHEN SLEEPING SATS UP TO 98%. O2 DROPPED TO 4L/M. WILL MONITER FOR NEED TO CHANGE. PROVIDED EDUCATION TO PT ABOUT FLUID RESTRICTION THIS MORNING. ATTEMPTED TO PROVIDE FURTHER EDUCATION AT LUNCH WHEN 480ML WAS TAKEN TO ROOM ON LUNCH TRAY. EXPLAINED TO PT SHE WOULD HAVE NO EXTRA LIQUIDS OR ICE SHE COULD HAVE IF SHE CONTINUED TO DRINK THAT AMOUNT WITH EACH MEAL. STATED SHE WOULD KEEP HER 2 DRINKS ON HER LUNCH TRAY. FRIEND AT BEDSIDE AND TALKED WITH PT ABOUT NEED FOR FLUID RESTRICTION WELL. CHANGED MEAL TRAYS TO HAVE RESTRICTION. AT SUPPERTIME PT BECAME UPSET ABOUT 120ML CUP OF MILK ON TRAY AND AFTER EMPTYING CUP IN ICE THROUGH IT AGAINST THE DOOR. CRYING AND YELLING AT BOYFRIEND ABOUT WANTING TO GO HOME.
[2023-01-12 21:02] LABS: Percent Saturation 13.5 % (15.0-50.0)
[2023-01-13 05:45] LABS: Hematocrit 26.2 % (33.0-51.0); Hemoglobin 8.3 g/dL (11.5-16.0); Mean Corpuscular HGB 26.9 pg (26.0-34.0); Mean Corpuscular HGB Conc 31.7 g/dL (31.5-36.5); Mean Corpuscular Volume 85 fL (80-100); Mean Platelet Volume 10.7 fL (9.1-12.4); Platelet Count 265 K/mm3 (150-400); Red Blood Cell Count 3.08 M/mm3 (3.80-5.20); White Blood Cell Count 8.81 K/mm3 (4.00-11.30)
--- NOTE | 2023-01-13 06:23 | NUR ---
PATIENT ALERT AND ORIENTED X4, SR RHYTHM ON TELE4L NC, INDEPENDENT, PATIENT REFUSED PULSE OXIMETER AT 0530 THIS MORNING, 22 RIGHT HAND SL, ADA DIET, ACHS, 1500 CC FLUID RESTRICTION, SMALL BM 3/6, +3 EDEMA ENTIRE BODY, PATIENT WAS VERY IRRITATED WITH STOCK FEEDER AND WAS FRUSTRATED TO THE POINT THAT SHE WAS VERY RUDE TO HER, I INTERVENED AND MAXIMILIANO HER MORNING LABS, FAN GIVEN FOR COMFORT, NO EVENTS OTHERWISE
[2023-01-13 07:20] LABS: Anion Gap 4 mmol/L (6-16); Blood Urea Nitrogen 59 mg/dL (8-24); CO2, Blood 26 mmol/L (21-32); Calcium, Blood 8.6 mg/dL (8.5-10.1); Chloride, Blood 107 mmol/L (98-108); Cholesterol 129 mg/dL (50-200); Creatinine, Blood 3.11 mg/dL (0.40-1.00); Glomerular Filtration Rate 20 (60-); Glucose, Blood 215 mg/dL (70-99); Magnesium, Blood 3.1 mg/dL (1.6-2.4); Phosphorus, Blood 5.3 mg/dL (2.5-4.9); Potassium, Blood 5.3 mmol/L (3.5-5.5); Sodium, Blood 137 mmol/L (136-145); Triglycerides 45 mg/dL (30-140)
--- NOTE | 2023-01-13 19:47 | NUR ---
PT ON 4L/M OF O2 TODAY AND APPEARED TO TOLERATE THROUGH THE DAY. NO PULSE OXIMETER ON DUE TO HER REFUSAL TO CONTINUE WEARING IT. BOYFRIEND STATED IT BEEPED FREQUENTLY BUT NOT WHY. CIVIL PROCESS SERVER REPORTED AFTER SHOWER THIS AFTERNOON THAT PT HADN'T WORN O2 IN TO SHOWER AND CAME OUT WITH PULSE OX OF 79%. O2 REPLACED AT 4-5L/M AND SLOWLY RETURNED TO 90%. HAS NOT APPEARED OR REPORTED ANY RESPIRATORY DISTRESS SINCE SHOWER. BOYFRIEND SUGGESTED TRYING TO SEE IF SHE TOLERATED HER O2 BEING DECREASED AND PT AGREEABLE TO REPLACE CONTINUOUS PULSE OX FOR A SHORT TIME TO MONITER TOLERATION. ONCE IT WAS ON SATS WERE AT 83%. INCREASED O2 TO 7L/M WITH NO CHANGE IN SATS. BIPAP PLACED AND O2 RUNNING AT 10/M WITH SATS MAINTAINING 87-88%. O2 INCREASED TO 15L/M AND SATS UP TO 94%. NOTIFIED MD AND ORDER FOR TRANSFER TO PCU. PT AND BOYFRIEND NOTIFIED. REPORT CALLED TO NATI CANTU IN PCU AND PT TRANSFERRED WITH BIPAP ON.
--- NOTE | 2023-01-13 20:00 | NUR ---
ARRIVAL TO [facility] PT ARRIVED TO [facility] AT APPROXIMATELY 1999. PT TRANSFERED FROM MEDICAL FLOOR BED TO PCU BED WITH SBA ASSIST. PT AMBULATED INTO BATHROOM IND. PT ARRIVED ON BIPAP 26/10 15L BLEED IN, SpO2> 92%, REPORTS SOB WITH ACTIVITY AND LYING FLAT, DENIES SOB AT REST. BP ELEVATED, ADMINISTERED SCHEDULED BP MEDICATION. SINUS TACH 100's, DENIES CP/PRESSURE. PT DENIES PAIN, IS RESTING COMFORTABLY IN BED. ORIENTED TO UNIT/CALL LIGHT. CALL LIGHT IN REACH, BED IN LOWEST POSITION. PT's SIGNIFICANT OTHER AT BEDSIDE.
[2023-01-14 03:48] LABS: Hematocrit 25.2 % (33.0-51.0); Hemoglobin 8.3 g/dL (11.5-16.0); Mean Corpuscular HGB 27.7 pg (26.0-34.0); Mean Corpuscular HGB Conc 32.9 g/dL (31.5-36.5); Mean Corpuscular Volume 84 fL (80-100); Mean Platelet Volume 10.5 fL (9.1-12.4); Platelet Count 256 K/mm3 (150-400); RDW Coefficient Variation 14.1 % (11.7-14.2); RDW Standard Deviation 43.6 fL (35.1-46.3); White Blood Cell Count 8.68 K/mm3 (4.00-11.30)
[2023-01-14 04:05] LABS: Albumin, Blood 2.7 g/dL (3.4-5.0); Anion Gap 1 mmol/L (6-16); Blood Urea Nitrogen 60 mg/dL (8-24); Bun/Creatinine Ratio 21.1 (12.0-20.0); CO2, Blood 31 mmol/L (21-32); Calcium, Blood 8.7 mg/dL (8.5-10.1); Chloride, Blood 105 mmol/L (98-108); Creatinine, Blood 2.85 mg/dL (0.40-1.00); Glomerular Filtration Rate 22 (60-); Glucose, Blood 165 mg/dL (70-99); Magnesium, Blood 3.2 mg/dL (1.6-2.4); Phosphorus, Blood 4.8 mg/dL (2.5-4.9); Potassium, Blood 4.3 mmol/L (3.5-5.5); Sodium, Blood 137 mmol/L (136-145)
--- NOTE | 2023-01-14 05:11 | NUR ---
SHIFT SUMMARY PT A&Ox4, CALLS AND COMMUNICATES NEEDS APPROPRIATELY. VSS, SpO2> 92% ON BIPAP 18/12 15L BLEED IN, REPORTS SOB WITH ACTIVITY AND LYING FLAT, DENIES SOB AT REST. BP ELEVATED, MANAGED PER EMAR. SINUS 90's, SINUS TACH 100'S WITH ACTIVITY. DENIES CP/PRESSURE. PT DENIES PAIN. SIGNIFICANT OTHER AT BEDSIDE. PT IND IN ROOM, MANAGES BIPAP APPROPRIATELY IND. NO OTHER EVENTS, WILL REPORT TO ONCOMING RN.
--- NOTE | 2023-01-14 18:44 | NUR ---
PT SUMMARY: PT TRANSITIONED BACK TO MEDICAL STATUS NO TELE. PT TOLERATING O2 AT 4L VIA HIFLO SATS KEPT ABOVE 90% PT STILL HAS SOME SOB WITH EXERTION, WAS ABLE TO GET IN THE SHOWER TODAY WITH NO ISSUES. POOR APPETITE PT STATED SHE HAD SOME NAUSEA AND STOMACH UPSET MEDICATED WITH ZOFRAN TWICE FOR THE SHIFT, REFUSED BREAKFAST AND LUNCH, ALSO ON BOWEL CARE WAS GIVEN MIRALAX AND MOM WITH NO RESULT. PT CONTINUES TO DIURESE WITH ALBUMIN AND BUMEX. PT HAS BEEN GETTING UP TO USE THE BATHROOM SIGNIFICANT OTHER IN THE ROOM HELPING OUT PT A LOT. PT HAD ATLEAST 2500 URINE OUTPUT FOR THE SHIFT. PT DENIES ANY KIND OF PAIN, VITALS HAS BEEN STABLE. NO OTHER ISSUES REPORTED WILL REPORT TO ONCOMING SHIFT
--- NOTE | 2023-01-14 19:55 | NUR ---
ASSESSMENT/ASSUMED CARE PT SITTING UP IN BED WITH BOYFRIEND AT BEDSIDE. PT STATES,"I'M FEELING MUCH BETTER". LUNGS CLEAR BUT DECREASED THROUGHTOUT ON 6 LITERS VIA HFNC. RESP EVEN AND NONLABORED. HEART RATE REGULAR AND BP STABLE. 3+ PITTING EDEMA NOTED TO LOWER EXT. PT STATES," IT IS LOOKING A LOT BETTER THAN WHAT IT WAS BEFORE THE LASIX". BT+ ABD ROUND AND SOFT. PT STATES,"MY ABD IS BIGGER THAN NORMAL BUT IMPROVING". POWER GLIDE TO RIGHT UPPER ARM SALINE LOCKED. FLUSHES WITHOUT DIFFICULTY. SITE CLEAR AND DRSG INTACT. PT MOVING SELF AROUND IN BED, AND UP TO BATHROOM AD CATINA. PT REQUESTING BIPAP TONIGHT, WILL CALL WHEN READY FOR USE. HS MEDS GIVEN. PT C/O CONSTIPATION, MIRLAX GIVEN ALONG WITH HS MEDS.
[2023-01-15 05:15] LABS: Hematocrit 23.4 % (33.0-51.0); Hemoglobin 7.6 g/dL (11.5-16.0); Mean Corpuscular HGB 27.7 pg (26.0-34.0); Mean Corpuscular HGB Conc 32.5 g/dL (31.5-36.5); Mean Corpuscular Volume 85 fL (80-100); Mean Platelet Volume 10.6 fL (9.1-12.4); Platelet Count 225 K/mm3 (150-400); RDW Standard Deviation 43.3 fL (35.1-46.3); Red Blood Cell Count 2.74 M/mm3 (3.80-5.20); White Blood Cell Count 5.87 K/mm3 (4.00-11.30)
[2023-01-15 05:38] LABS: Albumin, Blood 2.9 g/dL (3.4-5.0); Anion Gap 3 mmol/L (6-16); Blood Urea Nitrogen 60 mg/dL (8-24); Bun/Creatinine Ratio 19.4 (12.0-20.0); CO2, Blood 31 mmol/L (21-32); Calcium, Blood 8.5 mg/dL (8.5-10.1); Chloride, Blood 104 mmol/L (98-108); Creatinine, Blood 3.09 mg/dL (0.40-1.00); Glomerular Filtration Rate 20 (60-); Glucose, Blood 96 mg/dL (70-99); Magnesium, Blood 3.1 mg/dL (1.6-2.4); Phosphorus, Blood 5.2 mg/dL (2.5-4.9); Potassium, Blood 3.8 mmol/L (3.5-5.5); Sodium, Blood 138 mmol/L (136-145)
--- NOTE | 2023-01-15 05:57 | NUR ---
SHIFT SUMMARY PT RESTING QUIETLY. USING BIPAP AT NIGHT WHILE SLEEPING. SETTINGS 18/12 WITH 12 LITERS O2. SPO2 91-97%. PT UP AD CATINA IN ROOM. VSS. SO AT BEDSIDE. NO ACUTE CHANGE. REPORT TO ON COMING NURSE
--- NOTE | 2023-01-15 07:45 | NUR ---
AM ASSESSMENT: Pt resting in bed with sig other at bedside. Pt states that she has a migraine starting. Will medicate per orders. LS diminished, HR reg. BT positive. Abd distended and firm with edema noted. +2 edema in BLE and up into abd. Pt states that the swelling has improved. PUlses palp. CAll light in reach. Will continue to monitor.
--- NOTE | 2023-01-15 13:03 | NUR ---
Report called to medical floor. Pt taken to room 333 via w/c. Stable at time of transfer.
--- NOTE | 2023-01-15 17:42 | NUR ---
SHIFT SUMMARY PT A&OX4 AND IN PLEASENT MOOD SINCE ARRIVAL TO UNIT. IND IN ROOM, SPOUSE AT BEDSIDE-ASSISTING W/ CARE. CALL LIGHT W/IN REACH. HTN NOTED. TOLERATING PO INTAKE. SHOWERED THIS SHIFT. 4L NC @ THIS TIME.
--- NOTE | 2023-01-16 04:15 | NUR ---
SHIFT UNREMARKABLE. PT TOOK 2100 MEDICATIONS AND HAS SLEPT THROUGH MUCH OF REMAINDER OF SHIFT. CALLS APPROPRIATELY, AOX4. PT BOYFRIEND HAS REMAINED AT PT SIDE THROUGHOUT SHIFT AND HAS ASSISTED WITH HER AMBULATION AND BASIC NEEDS. PT DENIES PAIN OR DISCOMFORT. CALL LIGHT LEFT WITHIN REACH.
[2023-01-16 05:49] LABS: Hematocrit 25.9 % (33.0-51.0); Hemoglobin 8.1 g/dL (11.5-16.0); Mean Corpuscular HGB 26.9 pg (26.0-34.0); Mean Corpuscular HGB Conc 31.3 g/dL (31.5-36.5); Mean Corpuscular Volume 86 fL (80-100); Platelet Count 268 K/mm3 (150-400); RDW Coefficient Variation 13.9 % (11.7-14.2); RDW Standard Deviation 43.4 fL (35.1-46.3); Red Blood Cell Count 3.01 M/mm3 (3.80-5.20); White Blood Cell Count 5.99 K/mm3 (4.00-11.30)
[2023-01-16 06:21] LABS: Albumin, Blood 3.7 g/dL (3.4-5.0); Anion Gap 5 mmol/L (6-16); Blood Urea Nitrogen 57 mg/dL (8-24); Bun/Creatinine Ratio 16.8 (12.0-20.0); CO2, Blood 32 mmol/L (21-32); Calcium, Blood 8.7 mg/dL (8.5-10.1); Chloride, Blood 102 mmol/L (98-108); Creatinine, Blood 3.39 mg/dL (0.40-1.00); Glomerular Filtration Rate 18 (60-); Glucose, Blood 66 mg/dL (70-99); Phosphorus, Blood 5.7 mg/dL (2.5-4.9); Potassium, Blood 4.1 mmol/L (3.5-5.5); Sodium, Blood 139 mmol/L (136-145)
[2023-01-16 08:47] LABS: Albumin, Blood 3.6 g/dL (3.4-5.0); Anion Gap 4 mmol/L (6-16); Blood Urea Nitrogen 59 mg/dL (8-24); CO2, Blood 32 mmol/L (21-32); Calcium, Blood 8.9 mg/dL (8.5-10.1); Chloride, Blood 101 mmol/L (98-108); Creatinine, Blood 3.27 mg/dL (0.40-1.00); Glomerular Filtration Rate 19 (60-); Glucose, Blood 97 mg/dL (70-99); Phosphorus, Blood 5.8 mg/dL (2.5-4.9); Sodium, Blood 137 mmol/L (136-145)
--- NOTE | 2023-01-16 18:00 | NUR ---
SHIFT SUMMARY A&O X 4. VSS. BLOOD SUGARS HAVE BEEN WELL CONTROLLED TODAY. COVERED WITH INSULIN ORDERED. PT IS CONCERNED SHE HAS NOT HAD A BM FOR ALMOST A WEEK. BOWEL CARE INITIATED TODAY, OIL RETENTION ENEMA GIVEN ALONG WITH ALL ORQAL
--- NOTE | 2023-01-16 18:05 | NUR ---
SHIFT SUMMARY A&O X 4. VSS. PT CONCERNED SHE HAS NOT HAD A BM FOR ALMOST A WEEK. BOWEL CARE INITIATED TODAY WITH ORAL MEDS & A SUPPOSITORY & OIL RETENETION ENEMA GIVEN WITH NO RESULTS. PLACED CALL TO MD & RECEIVED ORDERS FOR A SOAPS SUDS ENEMA. PT WANTS TO WAIT TIL AFTER DINNER D/T THE FACT SHE JUST GOT OUT OF THE SHOWER. WAS ABLE TO WEAN HER O2 DOWN TO 4 L'S WITH SATS REMAINING >90%. TRIED 3.5 L'S BUT O2 SATS DROPPED TO <90%. HOME O2 EVAL DONE TODAY. (SEE RT NOTES). PT IS INDEPENDENT IN THE ROOM FOR ALL ADL'S. HER BF STAYED THE SHIFT AND ASSISTED WITH HER ADL'S.
--- NOTE | 2023-01-17 04:29 | NUR ---
SHIFT MOSTLY UNREMARKABLE. 2100 INSULIN GLARGINE WAS ADMINISTERED AFTER CBG WAS 130. AT 0045, PT HAD CBG OF 48. GAVE 8 OZ OF JUICE, PUDDING. RECHECKED CBG AT ~0110 AT WHICH TIME IT WAS 73. GAVE VIRY CRACKERS AND PEANUT BUTTER BEFORE PATIENT WENT BACK TO SLEEP. PATIENT WAS THEN ABLE TO SLEEP THROUGH MOST OF NIGHT. WILL PASS ONTO DAY SHIFT POSSIBILITY OF REDUCING HS GLARGINE ADMINISTRATION TO AVOID CONSEQUENCE OF HYPOGLYCEMIA. OTHERWISE PT HAS BEEN IN GOOD CONDITION AND HAS BEEN ABLE TO SLEEP THROUGH MUCH OF NIGHT. CALL LIGHT LEFT WITHIN REACH.
[2023-01-17 05:16] LABS: Hematocrit 24.1 % (33.0-51.0); Hemoglobin 7.5 g/dL (11.5-16.0); Mean Corpuscular HGB Conc 31.1 g/dL (31.5-36.5); Mean Corpuscular Volume 87 fL (80-100); Mean Platelet Volume 11.4 fL (9.1-12.4); Platelet Count 251 K/mm3 (150-400); RDW Standard Deviation 44.1 fL (35.1-46.3); Red Blood Cell Count 2.78 M/mm3 (3.80-5.20); White Blood Cell Count 6.23 K/mm3 (4.00-11.30)
[2023-01-17 05:33] LABS: Magnesium, Blood 3.4 mg/dL (1.6-2.4)
[2023-01-17 05:34] LABS: Anion Gap 3 mmol/L (6-16); Blood Urea Nitrogen 64 mg/dL (8-24); Bun/Creatinine Ratio 18.4 (12.0-20.0); CO2, Blood 32 mmol/L (21-32); Calcium, Blood 8.2 mg/dL (8.5-10.1); Chloride, Blood 102 mmol/L (98-108); Creatinine, Blood 3.48 mg/dL (0.40-1.00); Glomerular Filtration Rate 17 (60-); Glucose, Blood 65 mg/dL (70-99); Phosphorus, Blood 5.7 mg/dL (2.5-4.9); Potassium, Blood 4.2 mmol/L (3.5-5.5); Sodium, Blood 137 mmol/L (136-145)
--- NOTE | 2023-01-17 18:24 | NUR ---
SHIFT SUMMARY- PT IS A/O, PLESANT AND COOPERATIVE. SHE IS EATING AND DRINKING WELL. FAMILY AT BEDSIDE THIS SHIFT. SHE SLEPT INTERMITENTLY THROUGHOUT THIS SHIFT. HER BED IS IN THE LOW POSITION AND CALL LIGHT IS WITHIN REACH. HER OUTPUT IS GOOD.
[2023-01-18 05:32] LABS: Hematocrit 25.5 % (33.0-51.0); Mean Corpuscular HGB 27.4 pg (26.0-34.0); Mean Corpuscular HGB Conc 31.4 g/dL (31.5-36.5); Mean Corpuscular Volume 87 fL (80-100); Mean Platelet Volume 11.6 fL (9.1-12.4); Platelet Count 283 K/mm3 (150-400); RDW Coefficient Variation 14.2 % (11.7-14.2); RDW Standard Deviation 43.8 fL (35.1-46.3); Red Blood Cell Count 2.92 M/mm3 (3.80-5.20); White Blood Cell Count 8.63 K/mm3 (4.00-11.30)
[2023-01-18 06:18] LABS: Albumin, Blood 2.8 g/dL (3.4-5.0); Anion Gap 5 mmol/L (6-16); Blood Urea Nitrogen 72 mg/dL (8-24); CO2, Blood 30 mmol/L (21-32); Calcium, Blood 7.9 mg/dL (8.5-10.1); Chloride, Blood 99 mmol/L (98-108); Glomerular Filtration Rate 17 (60-); Glucose, Blood 396 mg/dL (70-99); Magnesium, Blood 3.3 mg/dL (1.6-2.4); Phosphorus, Blood 5.9 mg/dL (2.5-4.9); Potassium, Blood 4.8 mmol/L (3.5-5.5); Sodium, Blood 134 mmol/L (136-145)
--- NOTE | 2023-01-18 18:23 | NUR ---
SHIFT SUMMARY PT IS ALERT AND ORIENTED X4 5L NC. INDEPENDENT IN THE ROOM WITH FAMILY SUPERVISING. STRICT I AND O. PT ABDOMEN SEEMS TO BE LARGER THAN THE BEGINNING OF THE DAY. FACE IS SWOLLEN. BED IS IN THE LOWEST POSITION WITH THE CALL LIGHT IN PLACE. PT IS ABLE TO EXPRESS NEEDS
--- NOTE | 2023-01-19 04:29 | NUR ---
PATIENT ALERT AND ORIENTED, USED CPAP THROUGHOUT SHIFT, BREATHING TREATMENT GIVEN, NO EVENTS OVERNIGHT
[2023-01-19 06:06] LABS: BASOPHILS ABSOLUTE AUTO 0.07 K/mm3 (0.00-0.23); BASOPHILS PERCENT AUTO 1 % (0-2); EOSINOPHILS ABSOLUTE AUTO 0.67 K/mm3 (0.00-0.68); EOSINOPHILS PERCENT AUTO 8 % (0-6); Hematocrit 26.8 % (33.0-51.0); Hemoglobin 8.6 g/dL (11.5-16.0); IMMATURE GRAN ABSOLUTE AUTO 0.04 K/mm3 (0.00-0.10); IMMATURE GRAN PERCENT AUTO 1 % (0-1); LYMPHOCYTES ABSOLUTE AUTO 2.42 K/mm3 (0.84-5.20); LYMPHOCYTES PERCENT AUTO 29 % (21-46); MONOCYTES PERCENT AUTO 9 % (4-13); Mean Corpuscular HGB Conc 32.1 g/dL (31.5-36.5); Mean Corpuscular Volume 87 fL (80-100); Mean Platelet Volume 11.4 fL (9.1-12.4); NEUTROPHILS ABSOLUTE AUTO 4.48 K/mm3 (1.96-9.15); NEUTROPHILS PERCENT AUTO 53 % (41-73); Platelet Count 302 K/mm3 (150-400); RDW Coefficient Variation 14.5 % (11.7-14.2); RDW Standard Deviation 44.3 fL (35.1-46.3); Red Blood Cell Count 3.07 M/mm3 (3.80-5.20); White Blood Cell Count 8.48 K/mm3 (4.00-11.30)
[2023-01-19 06:33] LABS: Anion Gap 7 mmol/L (6-16); Blood Urea Nitrogen 73 mg/dL (8-24); Bun/Creatinine Ratio 19.7 (12.0-20.0); CO2, Blood 30 mmol/L (21-32); Calcium, Blood 8.7 mg/dL (8.5-10.1); Chloride, Blood 100 mmol/L (98-108); Creatinine, Blood 3.71 mg/dL (0.40-1.00); Glomerular Filtration Rate 16 (60-); Glucose, Blood 310 mg/dL (70-99); Phosphorus, Blood 5.3 mg/dL (2.5-4.9); Potassium, Blood 4.2 mmol/L (3.5-5.5); Sodium, Blood 137 mmol/L (136-145)
[2023-01-19] MEDS ORDERED: SPIR50 PO (13:28)
[2023-01-19] MEDS ORDERED: METO5 PO (13:28)
--- NOTE | 2023-01-19 14:27 | NUR ---
DISCHARGED PT EAGER TO TITRATE HER O2 OFF. PT EDUCATED ON HOW TO MONITOR HER O2 AT HOME AND TO SLOWLY TITRATE IF ABLE TO. PT STATES SHE UNDERSTANDS. PT HAS NO QUESTIONS ON NEW MEDS OR FOLLOW UP INSTRUCTIONS. HARD SCRIPT FOR LAB ORDER GIVEN TO PT. FOLLOW UP APPOINTMENT MADE WITH HER PCP FOR January. PT SENT HOME WITH PORTABLE O2 AT 4L. NO OTHER ACUTE CHANGES IN ASSESSMENT PRIOR TO DC. PT DENIED OTHER NEED FOR INSTRUCTION. PT WHEELED OUT BY BOYFRIEND AND TO BE DRIVEN HOME BY HIM ALSO.
== END 2023-01-19 14:33 | disposition home or self-care (01) | DRG 682 ==
LOC: ER 11:34 → MEDS 15:01 → PCU 01-13 19:54 → MEDS 01-15 12:44
PROVIDERS: Family Medicine; Internal Medicine Nephrology; ADMIT Internal Medicine
DX: N17.9 Acute kidney failure, unspecified (principal); J96.01 Acute respiratory failure with hypoxia; N39.0 Urinary tract infection, site not specified; Z68.41 Body mass index [BMI] 40.0-44.9, adult; E87.70 Fluid overload, unspecified; Z28.21 Immunization not carried out because of patient refusal; E10.40 Type 1 diabetes mellitus with diabetic neuropathy, unspecified; E10.21 Type 1 diabetes mellitus with diabetic nephropathy; E10.319 Type 1 diabetes mellitus with unspecified diabetic retinopathy without macular edema; I12.9 Hypertensive chronic kidney disease with stage 1 through stage 4 chronic kidney disease, or unspecified chronic kidney disease; N18.30 Chronic kidney disease, stage 3 unspecified; E03.9 Hypothyroidism, unspecified; Z86.16 Personal history of COVID-19; J45.20 Mild intermittent asthma, uncomplicated; E66.9 Obesity, unspecified; R11.2 Nausea with vomiting, unspecified; K59.00 Constipation, unspecified; D63.1 Anemia in chronic kidney disease; G43.909 Migraine, unspecified, not intractable, without status migrainosus; E78.5 Hyperlipidemia, unspecified; Z86.73 Personal history of transient ischemic attack (TIA), and cerebral infarction without residual deficits; Z98.51 Tubal ligation status; Z98.890 Other specified postprocedural states; Z98.891 History of uterine scar from previous surgery; Z87.891 Personal history of nicotine dependence; Z79.4 Long term (current) use of insulin; Z79.890 Hormone replacement therapy; Z79.899 Other long term (current) drug therapy
CPT/HCPCS: 36415; 51798; 71045; 80053; 80069; 82465; 82570; 82728; 82947; 83540; 83550; 83690; 83735; 83880; 83970; 84100; 84145; 84156; 84439; 84443; 84478; 85025; 85027; 93306; 94640; 94660; 94664; 94760; 94761; 94762; 99285-25; A9270; C1751; J0360; J1644; J1815; J1940; J2765; J2916; J7050; P9047; Q5106

== ENCOUNTER → 2023-01-27 | Outpatient (CLI) | payer OTHER ==
[~2023-01-27] MED LIST changes: +METO5 PO; +ZEBUTAL 50-3251 EAC1; +ZEBUTAL 50-3251 EAC1 PO
[2023-01-27 20:52] LABS: Albumin, Blood 3.1 g/dL (3.4-5.0); Anion Gap 5 mmol/L (6-16); Blood Urea Nitrogen 66 mg/dL (8-24); Bun/Creatinine Ratio 19.1 (12.0-20.0); CO2, Blood 34 mmol/L (21-32); Calcium, Blood 8.8 mg/dL (8.5-10.1); Chloride, Blood 98 mmol/L (98-108); Creatinine, Blood 3.45 mg/dL (0.40-1.00); Glomerular Filtration Rate 18 (60-); Glucose, Blood 347 mg/dL (70-99); Phosphorus, Blood 5.6 mg/dL (2.5-4.9); Potassium, Blood 4.3 mmol/L (3.5-5.5); Sodium, Blood 137 mmol/L (136-145)
== END | disposition home or self-care (01) ==
LOC: LAB 18:34 → LAB SHORT 18:34
PROVIDERS: Family Medicine
DX: N18.9 Chronic kidney disease, unspecified (principal)
CPT/HCPCS: 80069

== ENCOUNTER 2023-08-07 11:51 | Inpatient (IN) | payer OTHER ==
[~2023-08-07] VITALS: Ht 170.2 cm; Wt 104.7 kg
[~2023-08-07 11:51] MED LIST changes: -BUME1 PO; +BUME2 PO; +BUSP5 PO; +BUTALB-ACETAMI1 EAC5 PO; +CALCITRIOL0.25 MC4 PO; -CATAPRES0.1 MG PO; +CATAPRES0.2 M1 PO; +COLACE100 MG PO; +Cetirizine HCl10 MG PO; +Cyclobenzaprine5 MG PO; +ERGO400 PO; +ERGO50000 PO; +EUTHYROX88 MCG PO; +FLUTICASONE PRO16 GM; +INSULIN LI100 UNIT/5 SC
[2023-08-07 15:09] LABS: Anion Gap 6 mmol/L (6-16); Blood Urea Nitrogen 23 mg/dL (8-24); Bun/Creatinine Ratio 9.3 (12.0-20.0); CO2, Blood 21 mmol/L (21-32); Chloride, Blood 122 mmol/L (98-108); Creatinine, Blood 2.46 mg/dL (0.40-1.00); Glomerular Filtration Rate 26 (60-); Glucose, Blood 158 mg/dL (70-99); Potassium, Blood 3.3 mmol/L (3.5-5.5); Sodium, Blood 149 mmol/L (136-145)
[2023-08-07 16:59] LABS: BASOPHILS ABSOLUTE AUTO 0.04 K/mm3 (0.00-0.23); BASOPHILS PERCENT AUTO 0 % (0-2); EOSINOPHILS ABSOLUTE AUTO 0.03 K/mm3 (0.00-0.68); EOSINOPHILS PERCENT AUTO 0 % (0-6); Hematocrit 25.6 % (33.0-51.0); IMMATURE GRAN PERCENT AUTO 1 % (0-1); LYMPHOCYTES ABSOLUTE AUTO 1.29 K/mm3 (0.84-5.20); LYMPHOCYTES PERCENT AUTO 7 % (21-46); MONOCYTES ABSOLUTE AUTO 1.01 K/mm3 (0.16-1.47); MONOCYTES PERCENT AUTO 6 % (4-13); Mean Corpuscular HGB 28.4 pg (26.0-34.0); Mean Corpuscular Volume 89 fL (80-100); Mean Platelet Volume 10.9 fL (9.1-12.4); NEUTROPHILS ABSOLUTE AUTO 14.89 K/mm3 (1.96-9.15); NEUTROPHILS PERCENT AUTO 86 % (41-73); Platelet Count 275 K/mm3 (150-400); RDW Coefficient Variation 15.9 % (11.7-14.2); Red Blood Cell Count 2.89 M/mm3 (3.80-5.20); White Blood Cell Count 17.36 K/mm3 (4.00-11.30)
[2023-08-07 17:00] LABS: Hemoglobin 8.2 g/dL (11.5-16.0)
[2023-08-07 18:49] VITALS: BP 191/103
[2023-08-07 19:41] VITALS: BP 206/112
--- NOTE | 2023-08-07 19:41 | NUR ---
ADMISSION: REPORT RECEIVED FROM ED RN. PT TO UNIT AT 1830. A/O, HTN NOTED, PT IS PAINFUL, MEDICATION GIVEN PER EMAR. ALL OTHER VS STABLE. PT REPORTS NO NEW N/T TO BILAT EXT. BASELINE NEUROPATHY. IV FLUSHING AND DIALYSIS PORT TO RU CHEST WNL. ED REPORTS BLADDER SCAN ABOVE 500ML. PT REPORTS NEEDS TO VOID. PT UNABLE TO TURN SIDE TO SIDE OR AMBULATE DUE TO FX AND PAIN. PUREWICK PLACED WITH ATTENDS. REPORT PASSED TO NOC RN.
--- NOTE | 2023-08-07 20:35 | NUR ---
BLOOD PRESSURE PT BLOOD PRESSURE 206/112, PT REPORTS THAT SHE DID NOT TAKE ANY OF HER BLOOD PRESSURE MEDICATIONS TODAY. PT HAS LOPRESSOR AND CLONIDINE ORDERED FOR TONIGHT. MALATHI STYLES NP CALLED AND NOTIFIED. HE STATES JUST TP GIVE THE SCHEDULED BP MEDS THAT ARE ORDERED AND NOTIFY IF SBP IS GREATER THAN 180. WILL CONTINUE TO MONITOR.
[2023-08-07 21:30] VITALS: BP 200/114
--- NOTE | 2023-08-07 21:55 | NUR ---
HYPERTENSIVE BP DID NOT IMPROVE WITH PO LOPRESSOR OR PO CLONIDINE. MALATHI HALL CALLED AND NOTIFIED. RECEIVED ORDER FOR PO HYDRALYZINE, MEDICATED PER EMAR. WILL REPEAT BP CHECK.
[2023-08-07] MEDS ORDERED: MIRALAX17 GM PO (22:03)
[2023-08-07] MEDS ORDERED: METOLAZONE 5 MG PO (22:05)
[2023-08-07] MEDS ORDERED: BUMETANIDE2 M6 PO (22:06)
[2023-08-07] MEDS ORDERED: SPIRONOLACTONE50 MG PO (22:06)
[2023-08-07 22:55] VITALS: BP 223/121
--- NOTE | 2023-08-07 23:24 | NUR ---
URINARY RETENTION PT STILL HAS NOT VOIDED, BLADDER SCAN REVEALED 500 MLS IN BLADDER BEFORE SHIFT CHANGE. PUREWICK IS SET TO SUCTION, PT STATES THAT SHE FEELS THE URGE TO GO, BUT HAS NOT BEEN ABLE TO. PT STATES THAT SHE USUALLY ONLY VOIDS ONCE PER DAY. PT STATES NOT READY FOR CATHETER PLACEMENT AND WOULD LIKE TO GIVE IT MORE TIME TO SEE IF SHE CAN GO.
[2023-08-07 23:52] VITALS: BP 216/112
--- NOTE | 2023-08-07 23:59 | NUR ---
HYPERTENSION, URINARY RETENTION, O2 NEEDS MALATHI STYLES NP CALLED AND NOTIIFIED OF PT BP AGAIN, NOTIFIED HIM THAT PT BP DID NOT RESPOND TO PO HYDRALYZINE AND THAT BP WENT UP. PT ALSO TACHYCARDIC, PULSE IN THE TEEN'S. NOTIFIED HIM OF THAT ALSO, HE DID NOT WANT TO ORDER ANYTHING IV. HE ORDERED CLONIDINE 0.1 Q4HR TO BE GIVEN IN ADDITION TO THE DOSE SHE RECEIVED AT HS. ALSO NOTIFIED HIM THAT PT HAS BEEN UNABLE TO VOID. STRAIGHT CATH ORDERED. PT DESATS ON RA, INTO THE 50'S BUT SATS INCREASE PROMPTLY ABOVE 90'S WHEN PLACED BACK ON 2L O2. MALATHI NOTIFIED THAT PT DESATS ON RA. HE REPORTS THAT PT WAS ON RA IN ER, HE STATES TO DO ANOTHER SPOT CHECK WHILE ON RA TO SEE IF SHE DESATS AGAIN AND IF O2 NEEDS INCREASE ABOVE 2L TO CONTACT NEPHROLOGY FOR FURTHER MANAGEMENT.
[2023-08-08] VITALS (21 sets, daily range): BP systolic 134–223; BP diastolic 64–105
--- NOTE | 2023-08-08 00:35 | NUR ---
HYPERTENSION DR. ROTHMAN CONTACTED REGARDING PT BLOOD PRESSURE, NOTIFIED O HIM THAT NITRO PASTE HAD BEEN ORDERED BUT NOT YET GIVEN, AND WHAT PT HAD ALREADY RECEIVED FOR BP. NOTIFIED HIM THAT BP DID NOT RESPOND TO THE MEDS THAT WERE GIVEN. HE ORDERED IV LABETOLOL TO GIVEN FOR BP GREATER THAN 170. TELEMETRY ORDERED. HE STATES TO TRY NITRO PASTE FIRST AND THEN TO GIVE LABETOLOL IF BP DOES NOT RESPOND. HE ALSO ORDERED PEARSON FOR RETENTION.
[2023-08-08 04:17] LABS: BASOPHILS ABSOLUTE AUTO 0.04 K/mm3 (0.00-0.23); BASOPHILS PERCENT AUTO 0 % (0-2); EOSINOPHILS PERCENT AUTO 1 % (0-6); Hematocrit 25.6 % (33.0-51.0); Hemoglobin 7.8 g/dL (11.5-16.0); IMMATURE GRAN ABSOLUTE AUTO 0.04 K/mm3 (0.00-0.10); IMMATURE GRAN PERCENT AUTO 0 % (0-1); LYMPHOCYTES ABSOLUTE AUTO 1.54 K/mm3 (0.84-5.20); LYMPHOCYTES PERCENT AUTO 14 % (21-46); MONOCYTES ABSOLUTE AUTO 0.75 K/mm3 (0.16-1.47); MONOCYTES PERCENT AUTO 7 % (4-13); Mean Corpuscular HGB 27.7 pg (26.0-34.0); Mean Corpuscular HGB Conc 30.5 g/dL (31.5-36.5); Mean Corpuscular Volume 91 fL (80-100); Mean Platelet Volume 10.9 fL (9.1-12.4); NEUTROPHILS ABSOLUTE AUTO 8.27 K/mm3 (1.96-9.15); NEUTROPHILS PERCENT AUTO 77 % (41-73); Platelet Count 262 K/mm3 (150-400); RDW Coefficient Variation 15.9 % (11.7-14.2); RDW Standard Deviation 52.5 fL (35.1-46.3); Red Blood Cell Count 2.82 M/mm3 (3.80-5.20); White Blood Cell Count 10.74 K/mm3 (4.00-11.30)
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
[2023-08-08 05:00] LABS: Magnesium, Blood 2.5 mg/dL (1.6-2.4)
[2023-08-08 05:20] LABS: Bun/Creatinine Ratio 8.8 (12.0-20.0); Calcium, Blood 8.2 mg/dL (8.5-10.1); Creatinine, Blood 4.56 mg/dL (0.40-1.00); Potassium, Blood 5.2 mmol/L (3.5-5.5)
[2023-08-08 05:31] LABS: Source, Urine Foley catheter
[2023-08-08 05:52] LABS: Appearance, Urine Clear (Clear); Bilirubin, Urine Neg (Neg); Blood, Urine 2+ (Neg); Color, Urine Yellow (P-Yellow); Glucose Qualitative, Urine 3+ (Neg); Ketones, Urine Neg (Neg); Leukocyte Esterase, Urine Neg (Neg); Nitrite, Urine Neg (Neg); Protein, Urine 4+ (Neg); Urobilinogen, Urine NORM (Normal)
[2023-08-08 06:14] LABS: Bacteria Few /hpf; Squamous Epithelial Cells Rare /hpf (Few)
[2023-08-08 06:15] LABS: Amorphous Light (0-Heavy)
--- NOTE | 2023-08-08 14:14 | NUR ---
PT CAME BACK FROM DIALYSIS AT APPROXIMATELY 1300. PT GIVEN LABETOLOL FOR ELEVATED BLOOD PRESSURE, BP NOW IMPROVED. PT RESTING IN BED WITH CALL LIGHT WITHIN REACH.
--- NOTE | 2023-08-08 18:14 | NUR ---
SHIFT SUMMARY PT IS HAD DIALYSIS TODAY AND TOLERATED WELL. BP HAS BEEN ELEVATED INTERMITTENTLY AND PT RESPONDED WELL TO IV LOPRESSOR. PAIN HAS BEEN SOMEWHAT MANAGED WITH OXY 5MG. BLOOD GLUCOSE HAS BEEN MANAGED WITH SLIDING SCALE AND CARB COUNTING. PT HAS YET TO EAT DINNER, SHE STATED SHE WILL NOTIFY STAFF WHEN SHE EATS. PT HAS HAD SOME NAUSEA AND VOMITING THIS SHIFT, MANAGED WITH ZOFRAN AND REGLAN. PT RESTING IN BED AT THIS TIME, CALL LIGHT WITHIN REACH.
[2023-08-09 03:47] VITALS: BP 153/96
[2023-08-09 04:26] LABS: Anion Gap 2 mmol/L (6-16); Blood Urea Nitrogen 25 mg/dL (8-24); Bun/Creatinine Ratio 6.4 (12.0-20.0); CO2, Blood 34 mmol/L (21-32); Calcium, Blood 8.3 mg/dL (8.5-10.1); Chloride, Blood 100 mmol/L (98-108); Creatinine, Blood 3.88 mg/dL (0.40-1.00); Glomerular Filtration Rate 15 (60-); Glucose, Blood 205 mg/dL (70-99); Phosphorus, Blood 6.1 mg/dL (2.5-4.9); Potassium, Blood 4.8 mmol/L (3.5-5.5); Sodium, Blood 136 mmol/L (136-145)
--- NOTE | 2023-08-09 06:28 | NUR ---
SHIFT SUMMARY NO ACUTE CHANGES TO REPORT OVERNIGHT, PT HAS RESTED WELL, INTERMITTENT PAIN RELIEVED WITH MEDS PER EMAR. PT BLOOD PRESSURE HAS BEEN WELL CONTROLLED. PT HAS HAD A DECREASED APPEITIE, DID NOT EAT ANY OF HER DINNER. REFUSED SNACKS AT HS. PT COVERED WITH LONG ACTING INSULIN, BG IN THE LOW 200'S THIS AM. SATS WNL ON 2L 02. PT HAS NOT GOTTEN OOB OF BED THIS SHIFT, BUT IS HOPEFUL SHE WILL BE ABLE TO GET UP DURING THE DAY TO AMBULATE. PT DENIES N/T IN EXT. NO N/V. PLESANT AND COOPERATIVE WITH CARE.
[2023-08-09 07:20] VITALS: BP 156/89
[2023-08-09 15:45] VITALS: BP 130/79
--- NOTE | 2023-08-09 16:36 | NUR ---
CATHETER CLAMPED AT 1345, BLADDER TRAINING STARTED.
--- NOTE | 2023-08-09 17:35 | NUR ---
SHIFT SUMMARY PT ATTEMPTED TO WORK WITH PHYSICAL THERAPY TODAY. SHE WAS ABLE TO STAND AT THE EDGE OF THE BED BUT BECAME PAINFUL. PT IS TAKING OXYCODONE FOR PAIN. PT STARTED ON REGLAN BEFORE MEALS AND HAS HAD IMPROVED INTAKE. PT'S FAMILY HAS BEEN AT THE BEDSIDE FOR SUPPORT. PT RESTING IN BED AND CALL LIGHT WITHIN REACH.
[2023-08-09 19:38] VITALS: BP 123/78
[2023-08-10] VITALS (16 sets, daily range): BP systolic 112–178; BP diastolic 56–99
--- NOTE | 2023-08-10 04:15 | NUR ---
SHIFT SUMMARY PUBIC RAMUS FX PT A&O X4, PLEASENT AND APPROPRIATE. BP HAS BEEN STABLE T/O NIGHT. ABLE TO REST COMFORTABLY. PT HAS SOME PAIN DURING THE NIGHT, MEDICATED PER EMAR. BLADDER TRAINING T/O NIGHT. PT HAVING NO URGE TO PEE. PT SATTING AT 94% OR ABOVE ON 2L O2. NO OTHER CONCERNS AT THIS TIME. CALL LIGHT WITHIN REACH.
[2023-08-10 05:01] LABS: Albumin, Blood 1.9 g/dL (3.4-5.0); Anion Gap 4 mmol/L (6-16); Blood Urea Nitrogen 33 mg/dL (8-24); Bun/Creatinine Ratio 6.1 (12.0-20.0); CO2, Blood 32 mmol/L (21-32); Calcium, Blood 7.6 mg/dL (8.5-10.1); Chloride, Blood 101 mmol/L (98-108); Creatinine, Blood 5.37 mg/dL (0.40-1.00); Glomerular Filtration Rate 10 (60-); Glucose, Blood 108 mg/dL (70-99); Phosphorus, Blood 7.9 mg/dL (2.5-4.9); Potassium, Blood 4.9 mmol/L (3.5-5.5); Sodium, Blood 137 mmol/L (136-145)
--- NOTE | 2023-08-10 08:54 | NUR ---
AT APROX 0754 TRANSIT DEPARTMENT CLERK REPORTED TO THIS RN THAT PT BLOOD GLUCOSE 39, PT GIVEN 16 OZ APPLE JUICE. PT A/O, NO SHAKING ON ASSESSMENT. RECHECK AT 0825 49, NOTIFIED. ORDER TO GIVE 0.5 SYRINGE OF D50. 0843 GLUCOSE UP TO 125. PT REPORTS FEELING NAUSEAS AND SHAKING AT 0858. RECHECK GLUCOSE 109. NOTIFIED, ANOTHER 0.5 SYRINGE OF D50 GIVEN.
--- NOTE | 2023-08-10 17:29 | NUR ---
SHIFT SUMMARY PT WORKED W/PT/OT THIS SHIFT. UP TO CHAIR AFTER DIALYSIS AND IS UP FOR DINNER. PAIN WELL MANAGED W/PO PAIN MEDICATION. PT HAD DIALYSIS TODAY. PEARSON REMOVED, PT STILL HAS NOT VOIDED BUT STATES SHE NORMALLY DOES NOT VOID MUCH ON DIALYSIS DAYS, WILL BLADDER SCAN BEFORE END OF SHIFT. GLUCOSE LEVELS ELEVATED THIS EVENING, COVERED WITH SS PER EMAR, WILL DO CARB COUNT AFTER PT COMPLETES HER MEAL "THAT IS HOW I DO IT AT HOME". PLAN TO CONTINUE TO WORK WITH PT/OT FOR DC RECOMMENDATION.
[2023-08-11 05:01] LABS: BASOPHILS ABSOLUTE AUTO 0.05 K/mm3 (0.00-0.23); BASOPHILS PERCENT AUTO 1 % (0-2); EOSINOPHILS ABSOLUTE AUTO 0.46 K/mm3 (0.00-0.68); EOSINOPHILS PERCENT AUTO 6 % (0-6); Hematocrit 26.1 % (33.0-51.0); Hemoglobin 7.9 g/dL (11.5-16.0); IMMATURE GRAN ABSOLUTE AUTO 0.02 K/mm3 (0.00-0.10); IMMATURE GRAN PERCENT AUTO 0 % (0-1); LYMPHOCYTES ABSOLUTE AUTO 1.72 K/mm3 (0.84-5.20); LYMPHOCYTES PERCENT AUTO 21 % (21-46); MONOCYTES ABSOLUTE AUTO 0.95 K/mm3 (0.16-1.47); MONOCYTES PERCENT AUTO 12 % (4-13); Mean Corpuscular HGB 27.5 pg (26.0-34.0); Mean Corpuscular HGB Conc 30.3 g/dL (31.5-36.5); Mean Corpuscular Volume 91 fL (80-100); Mean Platelet Volume 11.1 fL (9.1-12.4); NEUTROPHILS ABSOLUTE AUTO 5.05 K/mm3 (1.96-9.15); NEUTROPHILS PERCENT AUTO 61 % (41-73); Platelet Count 263 K/mm3 (150-400); RDW Coefficient Variation 15.5 % (11.7-14.2); Red Blood Cell Count 2.87 M/mm3 (3.80-5.20); White Blood Cell Count 8.25 K/mm3 (4.00-11.30)
[2023-08-11 06:05] LABS: Anion Gap 5 mmol/L (6-16); Blood Urea Nitrogen 27 mg/dL (8-24); Bun/Creatinine Ratio 5.7 (12.0-20.0); CO2, Blood 31 mmol/L (21-32); Calcium, Blood 7.9 mg/dL (8.5-10.1); Chloride, Blood 100 mmol/L (98-108); Creatinine, Blood 4.76 mg/dL (0.40-1.00); Glomerular Filtration Rate 12 (60-); Glucose, Blood 230 mg/dL (70-99); Phosphorus, Blood 6.3 mg/dL (2.5-4.9); Potassium, Blood 4.8 mmol/L (3.5-5.5); Sodium, Blood 136 mmol/L (136-145)
--- NOTE | 2023-08-11 06:40 | NUR ---
PT VSS T/O NIGHT. SATS >90% ON 1LO2 WHEN AWAKE, PT DOES APPEAR TO HAVE APNEIC EPISODES WHEN SLEEPING, SATS NOTED TO DROP TO MID 70'S BRIEFLY WHEN SLEEPING, DURING APNEIC EPISODES. CBG STABLE. PT HAD NO VOID THIS SHIFT, BLADDER SCAN 327, PT DENIED URGE TO VOID, DECLINED STRAIGHT CATH. PAIN MGD PER EMAR W/REP RELIEF. PT IS SHIFTING SELF IN BED, REMAINS PAINFUL W/LARGER MVMTS. PT EXPRESSED CONCERNS R/T DC PLANNING, REP FEELING UNSURE OF PLAN TO DC HOME R/T GENERALIZED WEAKNESS AND PAIN MGMT. PLAN TO MOBILIZE W/PT AND AWAIT DC PLANNING.
[2023-08-11 08:05] VITALS: BP 134/83
[2023-08-11 15:09] VITALS: BP 115/75
[2023-08-11 17:01] LABS: Source, Urine Straight Cath
[2023-08-11 17:11] LABS: Appearance, Urine Cloudy (Clear); Bilirubin, Urine Neg (Neg); Blood, Urine 1+ (Neg); Color, Urine Yellow (P-Yellow); Glucose Qualitative, Urine Neg (Neg); Ketones, Urine Neg (Neg); Leukocyte Esterase, Urine 2+ (Neg); Nitrite, Urine Neg (Neg); Protein, Urine 4+ (Neg); Urobilinogen, Urine NORM (Normal)
[2023-08-11 17:34] LABS: Bacteria Many /hpf; Hyaline Casts 0-2 /lpf (0-2); Renal Epithelial Rare /hpf (0-Rare); Squamous Epithelial Cells Mod /hpf (Few); White Blood Cells, Urine 25-50 /hpf (0-5); Yeast/Fungi Urine Rare /hpf
[2023-08-11 19:39] VITALS: BP 137/91
--- NOTE | 2023-08-11 19:45 | NUR ---
SHIFT SUMMARY PT CONTINUES TO HAVE PAIN W/MVMT BUT IMPROVED FROM PREV SHIFT. MEDICATED PER EMAR. TOLERABLE WITH MEDICATION. UNABLE TO VOID THIS SHIFT, BLADDER SCAN DONE FRO GREATER THAN 450, STRAIGHT CATH FOR 650ML COUDY YELLOW URINE, URINE SAMPLE SENT. NAUSEATED MUCH OF SHIFT WITH POOR PO INTAKE, MD AWARE. MEDICATED ONCE WITH ZOFRAN AND SCHEDULED REGLAN. CONTINUES TO DROP BELOW 90% WHILE ON RA, PT ON 1L O2 NC. PLAN TO CONTINUE TO WORK W/ PT/OT AND DC PLANNING.
[2023-08-12] VITALS (19 sets, daily range): BP systolic 103–198; BP diastolic 35–118
[2023-08-12 05:36] LABS: Albumin, Blood 2.2 g/dL (3.4-5.0); Anion Gap 5 mmol/L (6-16); Blood Urea Nitrogen 38 mg/dL (8-24); Bun/Creatinine Ratio 6.3 (12.0-20.0); CO2, Blood 30 mmol/L (21-32); Calcium, Blood 8.2 mg/dL (8.5-10.1); Chloride, Blood 100 mmol/L (98-108); Creatinine, Blood 6.05 mg/dL (0.40-1.00); Glomerular Filtration Rate 9 (60-); Glucose, Blood 100 mg/dL (70-99); Phosphorus, Blood 7.2 mg/dL (2.5-4.9); Potassium, Blood 4.6 mmol/L (3.5-5.5); Sodium, Blood 135 mmol/L (136-145)
--- NOTE | 2023-08-12 06:20 | NUR ---
PT NEEDED TO HAVE OXYGEN INCREASED FROM 1L TO 2L WHEN SLEEPING THIS SHIFT DUE TO DECREASED OXYGEN SATURATION. PT SATTING IN THE 90'S WITH CURRENT OXYGEN FLOW RATE. PT WAS BLADDER SCANNED AND SHOWED >342ML OF URINE IN HER BLADDER. PT REPORTED A SLIGHT URGE TO VOID BUT REFUSED TO GET UP DURING THIS SHIFT. PT ALSO REFUSED BEING STRAIGHT CATHED DURING THE SHIFT. PT HAS HAD MINIMAL PO INTAKE AND DENIED NAUSEA. PT ENCOURAGED TO MOBILIZE THIS SHIFT. EDUCATION PROVIDED FOR USE OF INCENTIVE SPIROMETER AND IMPORTANCE OF ITS USE. PT STATES SHE HAS USED THE IS THIS SHIFT.
--- NOTE | 2023-08-12 09:49 | NUR ---
PT TAKEN TO DIALYSIS AT 0800. PT HAS DECLINED HER BREAKFAST R/T NAUSEA. ZOFRAN AND REGLAN HAVE BEEN GIVEN. NEPRO DRINK AND APPLE JUICE AT PT'S BEDSIDE IN DIALYSIS ROOM. DIALYSIS STAFF NOTIFIED OF AM BLOOD GLUCOSE READING OF 98 AND THAT PT HAS DECLINED HER BREAKFAST TRAY.
--- NOTE | 2023-08-12 16:29 | NUR ---
SHIFT SUMMARY PT HAD DIALYSIS TODAY AND TOLERATED WELL. SHE HAS COMPLAINED OF NAUSEA T/O THE DAY AND HAS HAD MINIMAL PO INTAKE. REGLAN GIVEN PRIOR TO MEALS. M[place]AL[place] ADDED FOR BOWEL CARE. PT WORKED WITH THERAPY TODAY, AND SHE IS SITTING UP TO THE RECLINER. PT IS STILL HAVING SOME ISSUES WITH URINARY RETENTION. PT REMAINS ON 2L O2, ATTEMPTED TO WEAN TO 1L THIS AM AND PT DID NOT TOLERATE. PT RESTING IN RECLINER, CALL LIGHT WITHIN REACH.
--- NOTE | 2023-08-12 19:18 | NUR ---
STRAIGHT CATH FOR BLADDER SCAN GREATER THAN 500ML. 350ML OUT WITH STRAIGHT CATH. CLOUDY FOUL SMELLING URINE. PT REPORTS DIFFICULTY VOIDING AT BASELINE, SHE STATES SHE SITS ON THE TOILET UNTIL SHE IS FINALLY ABLE TO VOID BUT IS UNABLE TO DO THAT HERE SINCE SHE IS IN TO MUCH PAIN.
[2023-08-13] VITALS (16 sets, daily range): BP systolic 119–197; BP diastolic 53–105
--- NOTE | 2023-08-13 06:13 | NUR ---
PT STILL HAS MINIMAL PO INTAKE FOR THIS SHIFT. BOWEL MEDS GIVEN THIS EVENING, BUT PT IS STILL UNABLE TO HAVE A BOWEL MOVEMENT DURING THIS SHIFT. PT HAS BEEN MAINTAINING HER OXYGEN SATURATION IN THE 90'S WITH 2L OF OXYGEN. NO ACUTE EVENTS THIS SHIFT.
[2023-08-13 06:14] LABS: Anion Gap 7 mmol/L (6-16); Blood Urea Nitrogen 28 mg/dL (8-24); Bun/Creatinine Ratio 5.7 (12.0-20.0); CO2, Blood 30 mmol/L (21-32); Calcium, Blood 8.4 mg/dL (8.5-10.1); Chloride, Blood 97 mmol/L (98-108); Creatinine, Blood 4.94 mg/dL (0.40-1.00); Free Thyroxine 1.23 ng/dL (0.70-1.60); Glomerular Filtration Rate 11 (60-); Glucose, Blood 232 mg/dL (70-99); Phosphorus, Blood 6.7 mg/dL (2.5-4.9); Potassium, Blood 4.6 mmol/L (3.5-5.5); Sodium, Blood 134 mmol/L (136-145)
[2023-08-13 14:01] LABS: SARS-Cov-2 (COVID-19) PCR, MMC NEGATIVE (NEGATIVE)
--- NOTE | 2023-08-13 16:48 | NUR ---
REPORT CALLED TO LES AT [facility]. SHE WAS NOTIFIED BOWEL CARE HAS BEEN STARTED. PLAN TO DC PT TO [facility] WHEN TRANSPORT ARRIVES.
--- NOTE | 2023-08-13 18:56 | NUR ---
DISCHARGE PT LEFT WITH [facility] TRANSPORT AT APPROXIMATELY 1745. VSS. PT ALERT AND ORIENTED UPON DISCHARGE. DISCHARGE PACKET AND PAIN MEDICATION PRESCRIPTION SENT WITH PATIENT.
== END 2023-08-13 17:45 | DRG 73 ==
LOC: ER 11:51 → SURS 11:52
PROVIDERS: Hospitalist; Internal Medicine; Nurse Practitioner Acute Care; Student in an Organized Health Care Education/Training Program; ADMIT Hospitalist
PROC: 5A1D70Z Performance of Urinary Filtration, Intermittent, Less than 6 Hours Per Day (ICD-10-PCS; principal; 2023-08-12)
DX: E10.43 Type 1 diabetes mellitus with diabetic autonomic (poly)neuropathy (principal); N18.6 End stage renal disease; S32.19XA Other fracture of sacrum, initial encounter for closed fracture; S32.511A Fracture of superior rim of right pubis, initial encounter for closed fracture; I13.2 Hypertensive heart and chronic kidney disease with heart failure and with stage 5 chronic kidney disease, or end stage renal disease; J81.1 Chronic pulmonary edema; S32.591A Other specified fracture of right pubis, initial encounter for closed fracture; K31.84 Gastroparesis; G43.909 Migraine, unspecified, not intractable, without status migrainosus; E10.22 Type 1 diabetes mellitus with diabetic chronic kidney disease; E03.9 Hypothyroidism, unspecified; J45.909 Unspecified asthma, uncomplicated; E10.65 Type 1 diabetes mellitus with hyperglycemia; E83.39 Other disorders of phosphorus metabolism; R33.9 Retention of urine, unspecified; K59.00 Constipation, unspecified; E10.42 Type 1 diabetes mellitus with diabetic polyneuropathy; D72.829 Elevated white blood cell count, unspecified; E87.6 Hypokalemia; D63.1 Anemia in chronic kidney disease; V58.5XXA Driver of pick-up truck or van injured in noncollision transport accident in traffic accident, initial encounter; Y92.410 Unspecified street and highway as the place of occurrence of the external cause; Z99.2 Dependence on renal dialysis; Z79.890 Hormone replacement therapy; Z86.73 Personal history of transient ischemic attack (TIA), and cerebral infarction without residual deficits; Z86.16 Personal history of COVID-19; Z87.891 Personal history of nicotine dependence; Z79.899 Other long term (current) drug therapy
CPT/HCPCS: 36415; 70450; 71045; 71260; 74177; 80048; 80069; 81001; 82310; 82947; 83735; 84439; 84443; 85025; 86850; 86900; 86901; 87077; 87086; 87186; 94762; 96372; 96374-59; 96375; 96375-59; 96376; 96376-59; 97110; 97161; 97166; 97530; 99285-25; A9270; G0257; G0378; J1170; J1644; J1815; J2405; J2765; J3010; Q5106; Q9967; U0002

== ENCOUNTER → 2023-08-27 | Outpatient (CLI) | payer OTHER ==
[~2023-08-27] MED LIST changes: +BUMETANIDE2 M6 PO; +METOLAZONE 5 MG PO; +MIRALAX17 GM PO; +SPIRONOLACTONE50 MG PO
== END | disposition home or self-care (01) ==
LOC: LAB 10:58 → LAB SHORT 10:58
DX: L02.91 Cutaneous abscess, unspecified (principal)
CPT/HCPCS: 87070; 87075; 87077; 87147; 87186; 87205

== ENCOUNTER → 2023-09-23 | Outpatient (CLI) | payer OTHER | LOC: EDSTATUS 10:22 → LAB DAV 11:00 | DX: N18.6 End stage renal disease (principal) | CPT/HCPCS: 84132 ==

== ENCOUNTER → 2023-12-10 | Outpatient (CLI) | payer OTHER ==
[2023-12-10 17:13] LABS: BASOPHILS ABSOLUTE AUTO 0.09 K/mm3 (0.00-0.23); BASOPHILS PERCENT AUTO 1 % (0-2); EOSINOPHILS ABSOLUTE AUTO 0.34 K/mm3 (0.00-0.68); EOSINOPHILS PERCENT AUTO 3 % (0-6); Hematocrit 44.7 % (33.0-51.0); Hemoglobin 13.9 g/dL (11.5-16.0); IMMATURE GRAN ABSOLUTE AUTO 0.09 K/mm3 (0.00-0.10); IMMATURE GRAN PERCENT AUTO 1 % (0-1); LYMPHOCYTES ABSOLUTE AUTO 3.15 K/mm3 (0.84-5.20); LYMPHOCYTES PERCENT AUTO 27 % (21-46); MONOCYTES ABSOLUTE AUTO 1.19 K/mm3 (0.16-1.47); MONOCYTES PERCENT AUTO 10 % (4-13); Mean Corpuscular HGB Conc 31.1 g/dL (31.5-36.5); Mean Corpuscular Volume 93 fL (80-100); Mean Platelet Volume 10.9 fL (9.1-12.4); NEUTROPHILS ABSOLUTE AUTO 6.93 K/mm3 (1.96-9.15); NEUTROPHILS PERCENT AUTO 59 % (41-73); Platelet Count 387 K/mm3 (150-400); RDW Coefficient Variation 15.9 % (11.7-14.2); RDW Standard Deviation 53.5 fL (35.1-46.3); Red Blood Cell Count 4.79 M/mm3 (3.80-5.20); White Blood Cell Count 11.79 K/mm3 (4.00-11.30)
[2023-12-10 18:41] LABS: Cholesterol 186 mg/dL (50-200); HDL Cholesterol 37 mg/dL (>39); LDL/HDL RATIO 2.8; Low Density Lipoprotein Chol 104 mg/dL (0-110); Triglycerides 224 mg/dL (30-140); Very Low Density Lipoprot Chol 44 mg/dL (6-28)
[2023-12-11 15:11] LABS: A/G RATIO 1.3 (1.2-2.2); BILIRUBIN, TOTAL 0.3 mg/dL (0.0-1.2); CALCIUM, SERUM 9.4 mg/dL (8.7-10.2); CREATININE, SERUM 5.39 mg/dL (0.57-1.00); GLOBULIN, TOTAL 3.4 g/dL (1.5-4.5); POTASSIUM, SERUM 4.6 mmol/L (3.5-5.2); PROTEIN, TOTAL, SERUM 7.9 g/dL (6.0-8.5)
== END ==
LOC: LAB 11:55 → LAB SHORT 11:55
PROVIDERS: Family Medicine
DX: E10.65 Type 1 diabetes mellitus with hyperglycemia (principal); Z79.899 Other long term (current) drug therapy
CPT/HCPCS: 80053; 80061; 82306; 83036; 84443; 85025

== ENCOUNTER 2024-05-21 17:03 | Inpatient (IN) | payer OTHER ==
[~2024-05-21] VITALS: Ht 160 cm; Wt 102.2 kg
[~2024-05-21 17:03] MED LIST changes: -METOLAZONE 5 MG PO; +metolazone PO
[2024-05-21] MEDS ORDERED: Ondansetron HCl 2 MG / ML 2ML Vial IV ONE (18:30)
[2024-05-21] MEDS ORDERED: HYDROmorphone HCl/Pf 1MG SYR IV ONE (18:30)
[2024-05-21 19:04] LABS: BASOPHILS ABSOLUTE AUTO 0.06 K/mm3 (0.00-0.23); BASOPHILS PERCENT AUTO 0 % (0-2); EOSINOPHILS ABSOLUTE AUTO 0.27 K/mm3 (0.00-0.68); EOSINOPHILS PERCENT AUTO 2 % (0-6); Hematocrit 30.5 % (33.0-51.0); Hemoglobin 9.3 g/dL (11.5-16.0); IMMATURE GRAN ABSOLUTE AUTO 0.05 K/mm3 (0.00-0.10); IMMATURE GRAN PERCENT AUTO 0 % (0-1); LYMPHOCYTES ABSOLUTE AUTO 1.23 K/mm3 (0.84-5.20); LYMPHOCYTES PERCENT AUTO 9 % (21-46); MONOCYTES ABSOLUTE AUTO 0.93 K/mm3 (0.16-1.47); MONOCYTES PERCENT AUTO 6 % (4-13); Mean Corpuscular HGB 29.5 pg (26.0-34.0); Mean Corpuscular HGB Conc 30.5 g/dL (31.5-36.5); Mean Corpuscular Volume 97 fL (80-100); Mean Platelet Volume 11.8 fL (9.1-12.4); NEUTROPHILS ABSOLUTE AUTO 11.91 K/mm3 (1.96-9.15); NEUTROPHILS PERCENT AUTO 83 % (41-73); Platelet Count 287 K/mm3 (150-400); RDW Coefficient Variation 14.3 % (11.7-14.2); RDW Standard Deviation 50.2 fL (35.1-46.3); Red Blood Cell Count 3.15 M/mm3 (3.80-5.20); White Blood Cell Count 14.45 K/mm3 (4.00-11.30)
[2024-05-21] MEDS ORDERED: Diphth,Pertuss(Acell),Tet Vac 0.5 ML VIAL IM ONE (19:20)
[2024-05-21] MEDS ORDERED: INSULIN GL100 UNIT/1 SC (19:25)
[2024-05-21] MEDS ORDERED: HYDRA25 (19:26)
[2024-05-21 19:28] LABS: Magnesium, Blood 3.1 mg/dL (1.6-2.4)
[2024-05-21] MEDS ORDERED: REGLAN1013 PO (19:29)
[2024-05-21] MEDS ORDERED: CALCIUM ACETAT667 M2 (19:30)
[2024-05-21 19:55] LABS: Albumin, Blood 3.2 g/dL (3.4-5.0); Albumin/Globulin Ratio 0.7 (0.8-1.8); Bilirubin, Total 0.4 mg/dL (0.1-1.0); Bun/Creatinine Ratio 5.3 (12.0-20.0); Calcium, Blood 8.3 mg/dL (8.5-10.1); Creatinine, Blood 14.1 mg/dL (0.40-1.00); Globulin, Blood 4.3 g/dL (2.2-4.0); Phosphorus, Blood 8.7 mg/dL (2.5-4.9); Potassium, Blood 6.6 mmol/L (3.5-5.5); Total Protein, Blood 7.5 g/dL (6.4-8.2)
[2024-05-21] MEDS ORDERED: Dextrose 50% 50 ML Syringe IV ONE (20:00)
[2024-05-21] MEDS ORDERED: Insulin Human Lispro 100 Units/ML 3ML Syringe SC ONE (20:05)
[2024-05-21] MEDS ORDERED: Sodium Zirconium Cyclosilicate 10 GM Packet PO ONE (21:35)
[2024-05-21] MEDS ORDERED: NS 1,000 ML IV SCH (21:35)
[2024-05-21] MEDS ORDERED: Ondansetron HCl 2 MG / ML 2ML Vial IV PRN ×2 (21:55→23:00)
[2024-05-21] MEDS ORDERED: HYDROmorphone HCl/Pf 1MG SYR IV PRN (21:55)
[2024-05-21] MEDS ORDERED: FentaNYL Citrate 50 MCG/ML 2 ML Injection IV PRN (23:00)
[2024-05-21] MEDS ORDERED: CALCIUM GLUC IN NACL, ISO-OSM 50 ML IV ONE (23:10)
[2024-05-21] MEDS ORDERED: NS 1,000 ML IV ONE (23:10)
[2024-05-21] MEDS ORDERED: Calcium Acetate 667 MG Gel Cap PO SCH (23:45)
[2024-05-21 23:57] LABS: Bun/Creatinine Ratio 5.5 (12.0-20.0); Calcium, Blood 8.4 mg/dL (8.5-10.1); Creatinine, Blood 14.1 mg/dL (0.40-1.00); Potassium, Blood 6.5 mmol/L (3.5-5.5)
[2024-05-22] VITALS (17 sets, daily range): BP systolic 76–193; BP diastolic 39–101
[2024-05-22] MEDS ORDERED: Insulin Regular 100 Unit/ML 1ML Dose IV ONE (00:20)
[2024-05-22] MEDS ORDERED: Dextrose 50% 50 ML Syringe IV ONE (00:25)
[2024-05-22 03:41] LABS: BASOPHILS ABSOLUTE AUTO 0.06 K/mm3 (0.00-0.23); BASOPHILS PERCENT AUTO 1 % (0-2); EOSINOPHILS ABSOLUTE AUTO 0.32 K/mm3 (0.00-0.68); EOSINOPHILS PERCENT AUTO 3 % (0-6); Hematocrit 25.7 % (33.0-51.0); Hemoglobin 7.8 g/dL (11.5-16.0); IMMATURE GRAN ABSOLUTE AUTO 0.02 K/mm3 (0.00-0.10); IMMATURE GRAN PERCENT AUTO 0 % (0-1); LYMPHOCYTES ABSOLUTE AUTO 1.87 K/mm3 (0.84-5.20); LYMPHOCYTES PERCENT AUTO 19 % (21-46); MONOCYTES ABSOLUTE AUTO 1.11 K/mm3 (0.16-1.47); MONOCYTES PERCENT AUTO 11 % (4-13); Mean Corpuscular HGB 29.5 pg (26.0-34.0); Mean Corpuscular HGB Conc 30.4 g/dL (31.5-36.5); Mean Corpuscular Volume 97 fL (80-100); Mean Platelet Volume 11.9 fL (9.1-12.4); NEUTROPHILS PERCENT AUTO 66 % (41-73); Platelet Count 250 K/mm3 (150-400); RDW Coefficient Variation 14.2 % (11.7-14.2); RDW Standard Deviation 49.9 fL (35.1-46.3); Red Blood Cell Count 2.64 M/mm3 (3.80-5.20); White Blood Cell Count 9.98 K/mm3 (4.00-11.30)
[2024-05-22 04:18] LABS: Bun/Creatinine Ratio 5.4 (12.0-20.0); Calcium, Blood 8.2 mg/dL (8.5-10.1)
[2024-05-22] MEDS ORDERED: Insulin Regular 100 UNIT/ML 10ML Vial SC SCH ×2 (06:00→11:30)
[2024-05-22] MEDS ORDERED: Sodium Zirconium Cyclosilicate 10 GM Packet PO SCH ×2 (06:00→09:00)
[2024-05-22] MEDS ORDERED: D5W-NS 500 ML IV SCH (08:00)
[2024-05-22] MEDS ORDERED: Calcium Acetate 667 MG Gel Cap PO SCH (08:30)
[2024-05-22 08:49] LABS: Albumin, Blood 2.6 g/dL (3.4-5.0); Albumin/Globulin Ratio 0.7 (0.8-1.8); Bilirubin, Total 0.2 mg/dL (0.1-1.0); Bun/Creatinine Ratio 5.5 (12.0-20.0); Calcium, Blood 8.1 mg/dL (8.5-10.1); Creatinine, Blood 13.6 mg/dL (0.40-1.00); Globulin, Blood 3.8 g/dL (2.2-4.0); Potassium, Blood 6.2 mmol/L (3.5-5.5); Total Protein, Blood 6.4 g/dL (6.4-8.2)
[2024-05-22] MEDS ORDERED: Insulin Glargine-Yfgn 100 Unit/mL 3 ML SYR SC SCH (09:00)
[2024-05-22] MEDS ORDERED: AmLODIPine Besylate 5 MG Tab PO SCH (09:00)
[2024-05-22] MEDS ORDERED: HYDROmorphone HCl/Pf 1MG SYR IV PRN (09:45)
[2024-05-22] MEDS ORDERED: Anticoagulant Sod Citrate Soln 3 ML SYR INJ PRN (10:15)
[2024-05-22] MEDS ORDERED: HUMALOG100 UNIT/1 SC (10:34)
[2024-05-22] MEDS ORDERED: Polyethylene Glycol 3350 17 gm PO PRN (10:55)
[2024-05-22] MEDS ORDERED: BusPIRone HCl 5 MG Tab PO PRN (11:00)
[2024-05-22] MEDS ORDERED: OxyCODONE HCL 5 MG TAB PO PRN (11:05)
[2024-05-22] MEDS ORDERED: Acetaminophen 500 MG Tab PO PRN (11:05)
[2024-05-22] MEDS ORDERED: Cyclobenzaprine HCl 10 MG Tab PO PRN (11:05)
[2024-05-22] MEDS ORDERED: HydrALAZINE HCl 20 MG / ML 1ML Vial IV PRN (11:10)
[2024-05-22] MEDS ORDERED: Metoclopramide HCl 10 MG Tab PO PRN ×2 (12:05→12:50)
--- NOTE | 2024-05-22 13:21 | NUR ---
LEFT KNEE IMOBILIZER PLACED WHILE IN DIALYSIS. THIS FINAL INSPECTOR AND TESTER CALLED A SURGICAL NURSE TO HELP WITH THE FIT.
--- NOTE | 2024-05-22 13:53 | NUR ---
ASSUMED CARE OF THE PT FROM ELIJAH CANTU AT ABOUT 1125 THIS MORNING. THE PT CAME BACK FROM DIALYSIS AROUND 1325. SHE WAS WRAPPED IN BLANKETS, SHIVERING, DIAPHERETIC, HR TACHY 110'S', BP STABLE, AND SHE WAS SATURATING IN THE 80'S ON RA. SHE IS NOW ON 2L NC TO MAINTAIN SP02 >90%. HER TEMPATURATE HAS INCREASED SINCE ADMISSION TO THE FLOOR, AND SHE IS IN PAIN, SO SHE WAS MEDICATED WITH TYLENOL. THIS WAS DISCUSSED WITH MY CHARGE NURSE. THE PT DENIES ANY SOB, ANGINA, OR CHEST PRESSURE. LUNG SOUNDS CLEAR BUT DIMINISHED IN THE BASES. PT IS BREATHING SHALLOW. A CONT PULSE OX WAS PLACED BECAUSE OF OXYGEN NEED. LEG IMMOBILIZER IN PLACE. SOME STRAPS ARE TOO SMALL AND WILL NOT FASTEN AROUND HER LEG. SOME BRUISING NOTED AROUND THE PT'S LEFT LATERAL SIDE, AND INFERIOR KNEE. THE BRUISING HAS NOT INCREASED SINCE ASSUMPTION OF CARE. THE PT'S ORA CARDONA IS AT THE BEDSIDE AND UPDATED ON CARE. CREDIT CARD ASSOCIATE AND DR. BUSTILLOS WANT THE PT RAN AGAIN FIRST THING IN THE MORNING. SEE NOTES FOR UPDATES.
[2024-05-22 15:09] LABS: Calcium, Blood 8.5 mg/dL (8.5-10.1); Creatinine, Blood 10.2 mg/dL (0.40-1.00); Potassium, Blood 4.9 mmol/L (3.5-5.5)
[2024-05-22] MEDS ORDERED: Naloxone HCl 0.4MG / ML 1ML Vial IV PRN (16:25)
[2024-05-22] MEDS ORDERED: Ipratropium/Albuterol SulF 2.5-0.5MG/3 ML Amp INH SCH (16:30)
[2024-05-22] MEDS ORDERED: Insulin Human Lispro 100 Units/ML 3ML Syringe SC SCH (16:30)
[2024-05-22] MEDS ORDERED: Insulin Glargine-Yfgn 100 Unit/mL 3 ML SYR SC ONE (17:00)
--- NOTE | 2024-05-22 17:03 | NUR ---
SHIFT SUMMARY THE PT IS DROWSY BUT ORIENTEDX3-4. SHE IS A POOR HISTORIAN, AND ADMITTED TO NOT BEING MED COMPLIANT WITH MULTIPLE MEDICATIONS. PROVIDERS MADE AWARE. SHE IS A NEW ADMIT THIS MORNING. SINCE ASSUMPTION OF CARE THE PT HAS HAD DIALYSIS, AND THEY PLAN TO RUN HER AGAIN TOMORROW. SHE SPIKED A FEVER BUT IT HAS RESOLVED SINCE BEING MEDICATED W/ TYLENOL, USING ICE PACKS, AND A FAN. THE PT IS ON RA AT BASELINE AND IS CURRENTLY ON 4-5L NC. SHE REPORTS A HISTORY OF SHALLOW BREATHING WHEN AT THE HOSPITAL AND ON ANY PAIN MEDICATIONS. DR. JUAREZ AND DR. BRAVO AWARE. PAIN HAS BEEN HARD TO MANAGE D/T THE LEFT LEG INJURIES, AND SHE HAS NEEDED MULTIPLE MEDICATIONS PER EMAR. SHE REPORTED NAUSEA THIS MORNING AND WAS MEDICATED PER EMAR. THE SWELLING AND BRUISING IN HER LLE HAS NOT INCREASED. WE ARE WATCHING FOR S/S OF COMPARTMENT SYNDROME. SEE NOTES FOR ANY UPDATES.
[2024-05-22 19:42] LABS: Calcium, Blood 7.9 mg/dL (8.5-10.1); Creatinine, Blood 10.7 mg/dL (0.40-1.00); Potassium, Blood 4.4 mmol/L (3.5-5.5)
[2024-05-22] MEDS ORDERED: Metolazone 5 MG Tab PO SCH (21:00)
[2024-05-22] MEDS ORDERED: Docusate Sodium 100 MG Cap PO SCH (21:00)
[2024-05-22] MEDS ORDERED: Gabapentin 100 MG Cap PO SCH (21:00)
[2024-05-22] MEDS ORDERED: CloNIDine HCl 0.2 MG Tab PO SCH ×2 (21:00)
[2024-05-22] MEDS ORDERED: Losartan Potassium 50 MG Tab PO SCH (21:00)
[2024-05-22] MEDS ORDERED: Sodium Zirconium Cyclosilicate 10 GM Packet PO ONE (21:30)
[2024-05-23] VITALS (16 sets, daily range): BP systolic 94–135; BP diastolic 42–78
[2024-05-23 04:04] LABS: BASOPHILS ABSOLUTE AUTO 0.09 K/mm3 (0.00-0.23); BASOPHILS PERCENT AUTO 0 % (0-2); EOSINOPHILS ABSOLUTE AUTO 0.02 K/mm3 (0.00-0.68); EOSINOPHILS PERCENT AUTO 0 % (0-6); Hemoglobin 7.2 g/dL (11.5-16.0); IMMATURE GRAN ABSOLUTE AUTO 0.13 K/mm3 (0.00-0.10); IMMATURE GRAN PERCENT AUTO 1 % (0-1); LYMPHOCYTES ABSOLUTE AUTO 1.05 K/mm3 (0.84-5.20); LYMPHOCYTES PERCENT AUTO 4 % (21-46); MONOCYTES ABSOLUTE AUTO 1.79 K/mm3 (0.16-1.47); MONOCYTES PERCENT AUTO 8 % (4-13); Mean Corpuscular HGB 29.8 pg (26.0-34.0); Mean Corpuscular Volume 99 fL (80-100); Mean Platelet Volume 12.4 fL (9.1-12.4); NEUTROPHILS ABSOLUTE AUTO 20.53 K/mm3 (1.96-9.15); NEUTROPHILS PERCENT AUTO 87 % (41-73); Platelet Count 193 K/mm3 (150-400); RDW Coefficient Variation 14.4 % (11.7-14.2); RDW Standard Deviation 52.1 fL (35.1-46.3); Red Blood Cell Count 2.42 M/mm3 (3.80-5.20); White Blood Cell Count 23.61 K/mm3 (4.00-11.30)
[2024-05-23 04:38] LABS: Magnesium, Blood 2.6 mg/dL (1.6-2.4)
[2024-05-23 04:58] LABS: Albumin, Blood 2.5 g/dL (3.4-5.0); Albumin/Globulin Ratio 0.7 (0.8-1.8); Bilirubin, Total 0.4 mg/dL (0.1-1.0); Bun/Creatinine Ratio 4.9 (12.0-20.0); Calcium, Blood 7.7 mg/dL (8.5-10.1); Creatinine, Blood 11.4 mg/dL (0.40-1.00); Globulin, Blood 3.5 g/dL (2.2-4.0); Phosphorus, Blood 8.2 mg/dL (2.5-4.9)
[2024-05-23 04:59] LABS: Potassium, Blood 6.4 mmol/L (3.5-5.5)
[2024-05-23] MEDS ORDERED: Levothyroxine Sodium 0.1 MG Tab PO SCH (06:00)
--- NOTE | 2024-05-23 06:26 | NUR ---
SHIFT SUMMARY ASSUMED CARE OF PATIENT AT 1900. PATIENT ADMITTED FOR LEFT TIBIA AND LEFT FEMUR FX, LEG IMMOBILIZER IN PLACE AT THIS TIME, SWELLING AND BRUISING NOTED. PAIN TREATED WITH OXYCODONE 5MG PRN, SEE MAR FOR MORE DETAILS. ORIENTED x4 BUT DROWSY THROUGHOUT THE NIGHT. RESPONSES INTERMITTENTLY DELAYED. PATIENT HAS HX OF CVA, COMPLAINS OF [place]. 2-3L OF O2 VIA NC, INCENTIVE SPIROMETER AT BEDSIDE, TEACHING REINFORCED. PATIENT HAS BEEN NPO SINCE MIDNIGHT FOR SX. NO OTHER SIGNIFICANT EVENTS NOTED.
[2024-05-23] MEDS ORDERED: Anticoagulant Sod Citrate Soln 3 ML SYR INJ PRN (07:55)
--- NOTE | 2024-05-23 08:45 | NUR ---
UPDATE PT TAKEN TO DIALYSIS ROOM FOR TREATMENT. WILL AWAIT RETURN
[2024-05-23] MEDS ORDERED: Bumetanide 1 MG Tab PO SCH (09:00)
[2024-05-23] MEDS ORDERED: Calcitriol 0.25 MCG Cap PO SCH (09:00)
[2024-05-23] MEDS ORDERED: Losartan Potassium 50 MG Tab PO SCH (09:00)
[2024-05-23 09:30] LABS: Influenza A, PCR NEGATIVE (NEGATIVE); Influenza B, PCR NEGATIVE (NEGATIVE); Resp Syncytial Virus, PCR NEGATIVE (NEGATIVE); SARS-Cov-2 (COVID-19) PCR, MMC NEGATIVE (NEGATIVE)
--- NOTE | 2024-05-23 11:33 | NUR ---
UPDATE PT RETURNED FROM DIALYSIS. VS STABLE. PT DENIES PAIN AT THIS TIME. LEFT LEG REMAINS IN IMMOBILIZER. PT AWAITING SURGERY. WILL CONTINUE TO MONITOR CLOSELY
[2024-05-23] MEDS ORDERED: HYDROmorphone HCl/Pf 1MG SYR IV PRN (13:10)
[2024-05-23] MEDS ORDERED: Albuterol 2.5 MG/3 ML VIAL INH PRN (15:40)
[2024-05-23 15:55] LABS: Albumin, Blood 2.8 g/dL (3.4-5.0); Anion Gap 11 mmol/L (3-11); Blood Urea Nitrogen 38 mg/dL (8-24); Bun/Creatinine Ratio 4.8 (12.0-20.0); CO2, Blood 31 mmol/L (21-32); Calcium, Blood 8.3 mg/dL (8.5-10.1); Chloride, Blood 100 mmol/L (98-108); Glomerular Filtration Rate 6 (60-); Glucose, Blood 165 mg/dL (70-99); Phosphorus, Blood 7.1 mg/dL (2.5-4.9); Sodium, Blood 138 mmol/L (136-145)
--- NOTE | 2024-05-23 16:53 | NUR ---
SHIFT SUMMARY PT REMAINS ALERT AND ORIENTED. BP STABLE. HR REMAINS NSR 80'S. O2 SATS REMAIN ABOVE 90% ON 2L NC. PT STATES PAIN IS TOLERABLE AT REST AT THIS TIME. PT ABLE TO REPOSITION WITH MINIMAL ASSISTANCE IN BED. IMMOBILIZER IN PLACE TO LEFT LEG. SURGERY POST PONED UNTIL OR AVAILABLITIY. PLAN TO BE NPO AT MIDNIGHT FOR POSSIBILITY OF SURGERY TOMORROW. PT AWARE. PT EDUCATED ON USE OF INCENTIVE SPIROMETER. WILL CONTINUE TO MONITOR AND REPORT TO ONCOMING RN
[2024-05-23] MEDS ORDERED: Cefepime HCl 1,000 MG in NS 100 ML IV SCH (18:00)
[2024-05-23] MEDS ORDERED: Insulin Glargine-Yfgn 100 Unit/mL 3 ML SYR SC SCH (19:00)
[2024-05-24] VITALS (13 sets, daily range): BP systolic 109–137; BP diastolic 45–80
[2024-05-24 05:21] LABS: BASOPHILS ABSOLUTE AUTO 0.12 K/mm3 (0.00-0.23); BASOPHILS PERCENT AUTO 1 % (0-2); EOSINOPHILS ABSOLUTE AUTO 0.08 K/mm3 (0.00-0.68); EOSINOPHILS PERCENT AUTO 0 % (0-6); Hematocrit 25.4 % (33.0-51.0); Hemoglobin 7.4 g/dL (11.5-16.0); IMMATURE GRAN ABSOLUTE AUTO 0.17 K/mm3 (0.00-0.10); IMMATURE GRAN PERCENT AUTO 1 % (0-1); LYMPHOCYTES ABSOLUTE AUTO 1.41 K/mm3 (0.84-5.20); LYMPHOCYTES PERCENT AUTO 7 % (21-46); MONOCYTES ABSOLUTE AUTO 1.55 K/mm3 (0.16-1.47); MONOCYTES PERCENT AUTO 7 % (4-13); Mean Corpuscular HGB 29.8 pg (26.0-34.0); Mean Corpuscular HGB Conc 29.1 g/dL (31.5-36.5); Mean Corpuscular Volume 102 fL (80-100); Mean Platelet Volume 12.6 fL (9.1-12.4); NEUTROPHILS ABSOLUTE AUTO 18.46 K/mm3 (1.96-9.15); NEUTROPHILS PERCENT AUTO 85 % (41-73); Platelet Count 209 K/mm3 (150-400); RDW Standard Deviation 52.1 fL (35.1-46.3); Red Blood Cell Count 2.48 M/mm3 (3.80-5.20); White Blood Cell Count 21.79 K/mm3 (4.00-11.30)
[2024-05-24 06:14] LABS: Albumin, Blood 2.7 g/dL (3.4-5.0); Albumin/Globulin Ratio 0.7 (0.8-1.8); Bilirubin, Total 0.5 mg/dL (0.1-1.0); Calcium, Blood 8.1 mg/dL (8.5-10.1); Globulin, Blood 3.8 g/dL (2.2-4.0); Potassium, Blood 4.7 mmol/L (3.5-5.5); Total Protein, Blood 6.5 g/dL (6.4-8.2)
[2024-05-24 06:16] LABS: Bun/Creatinine Ratio 5.1 (12.0-20.0); Creatinine, Blood 9.04 mg/dL (0.40-1.00)
--- NOTE | 2024-05-24 06:16 | NUR ---
SHIFT SUMMARY PATIENT ORIENTED x4, DROWSY/LOW ENERGY THIS SHIFT. C/O PAIN x1, TREATED WITH PRN PAIN MEDS, SEE MAR FOR DETAILS. REMAINS ON 2L O2 VIA NC, TOLERATING WELL WITH SPO2 > 90%, DESATS TO 80S ON RA. SR ON TELE, BP STABLE. CLONIDINE HELD PER MED PARAMETERS. PATIENT C/O NAUSEA AND VOMITING OVERNIGHT, REQUIRING ZOFRAN AND REGLAN WITH ADEQUATE RELIEF. LEFT LEG IMMOBILIZED D/T FX. PLAN FOR OR TODAY. NO ACUTE EVENTS OVERNIGHT.
--- NOTE | 2024-05-24 07:50 | NUR ---
INITIAL ASSESSMENT PATIENT LYING IN BED RESTING UPON ENTERING ROOM. PATIENT DROWSY BUT WAKES EASILY TO VERBAL STIMULI. PATIENT ALERT AND ORIENTED X 4. PATIENT COOPERATIVE, WITHDRAWN AND WITH FLAT AFFECT. PATIENT HAS TEMP OF 99.3 DEGREES FAHRENHEIT. PATIENT COMPLAINS OF PAIN IN L LEG. IMMOBILIZER TO L LEG. L LEG SLIGHTLY BIGGER THAN RIGHT. PATIENT SATTING GREATER THAN 90% ON 2 L NC. LUNGS DIM T/O. SHALLOW BREATHS NOTED. PATIENT IN SR, HR IN THE 90S. SBP 112. PATIENT NAUSEOUS THIS AM; PRN ZOFRAN GIVEN. PUREWICK IN PLACE; PATIENT OLIGURIC. FISTULA TO L ARM, PERMACATH TO R CHEST. BED LOW, CALL LIGHT IN REACH. CARE CONTINUES.
[2024-05-24] MEDS ORDERED: Insulin Human Lispro 100 Units/ML 3ML Syringe SC ONE (09:40)
[2024-05-24] MEDS ORDERED: Lactated Ringer's 500 ML IV ONE (09:55)
[2024-05-24] MEDS ORDERED: Lactated Ringer's 1,000 ML IV SCH (11:25)
[2024-05-24] MEDS ORDERED: Insulin Human Regular 100 UNIT in NS 100 ML IV SCH (11:25)
--- NOTE | 2024-05-24 11:41 | NUR ---
PATIENT HAS TEMP OF 99.9 DEGREES FAHRENHEIT. HR IN THE 90S. BP 113/ 45. BLOOD SUGAR 436. ADDITIONAL 10 UNITS INSULIN GIVEN THIS AM WITH 500 ML BOLUS BUT BLOOD SUGARS CONTINUE TO INCREASE. SLIDING SCALE INSULIN GIVEN PER DR. AGUILAR AND PATIENT TO BE TRANSFERRED TO ICU FOR INSULIN DRIP. NO COMPLAINTS OF NAUSEA OR PAIN AT THIS TIME.
--- NOTE | 2024-05-24 12:00 | NUR ---
REPORT GIVEN TO ASSUMING ICU NURSE.
[2024-05-24 12:01] LABS: Calcium, Blood 7.9 mg/dL (8.5-10.1); Potassium, Blood 4.5 mmol/L (3.5-5.5)
[2024-05-24 12:03] LABS: Bun/Creatinine Ratio 5.4 (12.0-20.0); Creatinine, Blood 9.59 mg/dL (0.40-1.00)
--- NOTE | 2024-05-24 12:52 | NUR ---
CARE ASSUMPTION PT ARRIVED TO ICU FROM PCU AND WAS TRANSFERED TO ICU BED. PT ALERT AND ORIENTED DENYING ANY NAUSEA AT THIS TIME. PT'S SPO2 >92% ON 2L NC. BP WNL AND STABLE. MONITOR SHOWING SR 90'S. PT AFEBRILE. PT ALERT AND COMMUNICATING APPROPRIATELY W STAFF.
[2024-05-24 14:38] LABS: Bun/Creatinine Ratio 5.4 (12.0-20.0); Calcium, Blood 7.9 mg/dL (8.5-10.1); Creatinine, Blood 9.5 mg/dL (0.40-1.00); Potassium, Blood 4.3 mmol/L (3.5-5.5)
[2024-05-24 16:26] LABS: Bun/Creatinine Ratio 5.6 (12.0-20.0); Creatinine, Blood 9.7 mg/dL (0.40-1.00); Potassium, Blood 4.4 mmol/L (3.5-5.5)
[2024-05-24] MEDS ORDERED: Dextrose 5% 1,000 ML IV SCH (17:55)
--- NOTE | 2024-05-24 18:37 | NUR ---
DAY SHIFT SUMMARY PT HAS REMAINED ALERT AND ORIENTED THIS SHIFT COMMUNICATING APPROPRIATELY W STAFF. PT HAS DENIED ANY NAUSEA SINCE ARRIVING TO THE UNIT BUT REPORTS NO DESIRE FOR FOOD. CBG'S TRENDING DOWN CURRENTLY AT 178 SO D5 STARTED AT 75 ML/HR. INSULIN GTT CURRENTLY INFUSING AT 2 UNITS/HR. PT'S BP WNL AND STABLE THIS SHIFT. MONITOR SHOWING SR 80'S-90'S THIS SHIFT. SPO2 >94% ON 2L NC. PT AFEBRILE. PT W NO URINE OUTPUT THIS SHIFT SO BLADDER SCAN DONE SHOWING 328 THIS AFTERNOON, WILL NOTIFY ONCOMING RN FOR FURTHER ASSESSMENT. NO BM THIS SHIFT BUT THE PT IS PASSING GAS AND REPORTS THAT IT IS NORMAL FOR HER TO GO MULTIPLE DAYS BETWEEN BOWEL MOVEMENTS. DR. ANSARI CAME TO BEDSIDE TO NOTIFY THE PT THAT HER SURGERY WILL BE DONE AFTER HER BACTEREMIA IS RESOLVED. PT'S SO AT BEDSIDE THIS AFTERNOON. WILL REPORT TO ONCOMING RN.
[2024-05-24] MEDS ORDERED: D5W-1/2NS 1,000 ML IV SCH (19:10)
[2024-05-24 19:15] LABS: Albumin, Blood 2.5 g/dL (3.4-5.0); Albumin/Globulin Ratio 0.7 (0.8-1.8); Bilirubin, Total 0.5 mg/dL (0.1-1.0); Bun/Creatinine Ratio 5.6 (12.0-20.0); Calcium, Blood 8.2 mg/dL (8.5-10.1); Creatinine, Blood 9.74 mg/dL (0.40-1.00); Globulin, Blood 3.6 g/dL (2.2-4.0); Potassium, Blood 4.5 mmol/L (3.5-5.5); Total Protein, Blood 6.1 g/dL (6.4-8.2)
--- NOTE | 2024-05-24 22:10 | NUR ---
RECEIVED REPORT ON PATIENT AND ASSUMED CARE. PATIENT SLEEPING WITH FAMILY AT BEDSIDE. EPISODE OF NAUSEA AND MEDICATED WITH ZOFRAN IV WITH IMPROVED RESULTS. ABLE TO TAKE EVENING PILLS WITHOUT DIFFICULTY. SCHEDULED FOR OR TOMORROW IF BLOOD SUGARS STABLE THROUGHOUT NIGHT. INSULIN DRIP DECREASED TO 1 UNIT PER HOUR AT PRESENT TIME. MEDICATED FOR PAIN IN LEG AND AWAITING RESUILTS.
[2024-05-25] VITALS (30 sets, daily range): BP systolic 92–191; BP diastolic 51–120
[2024-05-25 00:41] LABS: Albumin, Blood 2.2 g/dL (3.4-5.0); Albumin/Globulin Ratio 0.7 (0.8-1.8); Bilirubin, Total 0.3 mg/dL (0.1-1.0); Bun/Creatinine Ratio 5.2 (12.0-20.0); Calcium, Blood 7.1 mg/dL (8.5-10.1); Creatinine, Blood 8.98 mg/dL (0.40-1.00); Globulin, Blood 3.1 g/dL (2.2-4.0); Total Protein, Blood 5.3 g/dL (6.4-8.2)
--- NOTE | 2024-05-25 02:12 | NUR ---
DR. ROTHMAN INFORMED OF LATEST CHEM 7. PATIENT WILL REMAIN ON INSULIN DRIP DUE TO SURGERY POSSIBLY IN AM AND BEING NPO FOR PROCEDURE.
[2024-05-25 05:00] LABS: Percent Saturation 79.1 % (15.0-50.0)
[2024-05-25 05:29] LABS: Calcium, Blood 7.7 mg/dL (8.5-10.1); Potassium, Blood 4.2 mmol/L (3.5-5.5)
[2024-05-25 05:31] LABS: Bun/Creatinine Ratio 5.3 (12.0-20.0); Creatinine, Blood 9.17 mg/dL (0.40-1.00); Phosphorus, Blood 8.2 mg/dL (2.5-4.9)
--- NOTE | 2024-05-25 06:03 | NUR ---
BLOOD SUGAR ELEVATED TO 171 AND INSULIN DRIP INCREASED TO 1 UNIT PER HOUR. MEDICATED FOR PAIN.
[2024-05-25 07:03] LABS: BASOPHILS ABSOLUTE AUTO 0.06 K/mm3 (0.00-0.23); BASOPHILS PERCENT AUTO 0 % (0-2); EOSINOPHILS ABSOLUTE AUTO 0.38 K/mm3 (0.00-0.68); EOSINOPHILS PERCENT AUTO 3 % (0-6); Hematocrit 19.6 % (33.0-51.0); IMMATURE GRAN ABSOLUTE AUTO 0.08 K/mm3 (0.00-0.10); IMMATURE GRAN PERCENT AUTO 1 % (0-1); LYMPHOCYTES ABSOLUTE AUTO 1.55 K/mm3 (0.84-5.20); LYMPHOCYTES PERCENT AUTO 11 % (21-46); MONOCYTES PERCENT AUTO 11 % (4-13); Mean Corpuscular HGB 30.2 pg (26.0-34.0); Mean Corpuscular HGB Conc 30.6 g/dL (31.5-36.5); Mean Corpuscular Volume 99 fL (80-100); Mean Platelet Volume 12.1 fL (9.1-12.4); NEUTROPHILS ABSOLUTE AUTO 10.12 K/mm3 (1.96-9.15); NEUTROPHILS PERCENT AUTO 74 % (41-73); Platelet Count 181 K/mm3 (150-400); RDW Coefficient Variation 13.9 % (11.7-14.2); RDW Standard Deviation 50.1 fL (35.1-46.3); Red Blood Cell Count 1.99 M/mm3 (3.80-5.20); White Blood Cell Count 13.69 K/mm3 (4.00-11.30)
--- NOTE | 2024-05-25 08:00 | NUR ---
INITIAL ASSESSMENT PATIENT ORIENTED X 4. PATIENT STATES SHE IS TIRED. PATIENT AFEBRILE. PATIENT STATES PAIN IS MANAGEABLE AT THIS TIME. PATIENT HAS IMMOBILIZER TO L LEG BECAUSE OF DISTAL FEMUR FRACTURE. PATIENT SATTING 90% AND GREATER ON 2 L NC. PATIENT IN SR, HR IN THE 70S. SBP IN THE 1-TEENS. PATIENT DENIES NAUSEA THIS AM. PATIENT STATES SHE IS NOT HUNGRY AT THIS TIME. PATIENT OLIGURIC. PATIENT STATES SHE NORMALLY URINATES A FEW TIMES A DAY AT HOME. DIALYSIS PATIENT. PERMACATH TO R CHEST. FISTULA TO L ARM. D5 1/2 NS INFUSING AT 75 MLS/ HOUR. INSULIN DRIP AT 1 UNIT/ HOUR. BED LOW, CALL LIGHT IN REACH. CARE CONTINUES.
[2024-05-25] MEDS ORDERED: Epoetin Alfa-EPBX 10,000 Unit/ML 1ML Vial IV SCH (09:00)
[2024-05-25 09:09] LABS: Calcium, Blood 8.5 mg/dL (8.5-10.1); Potassium, Blood 4.4 mmol/L (3.5-5.5)
[2024-05-25 09:11] LABS: Bun/Creatinine Ratio 5.6 (12.0-20.0); Creatinine, Blood 10.5 mg/dL (0.40-1.00)
[2024-05-25] MEDS ORDERED: Insulin Human Lispro 100 Units/ML 3ML Syringe SC SCH ×2 (09:43→11:30)
[2024-05-25] MEDS ORDERED: Insulin NPH 100 Unit / ML 10ML Vial SC ONE (09:55)
[2024-05-25] MEDS ORDERED: Anticoagulant Sod Citrate Soln 3 ML SYR INJ PRN (11:05)
[2024-05-25] MEDS ORDERED: Heparin Sodium,Porcine 5,000 UNIT/0.5 ML SDV SC SCH (11:27)
[2024-05-25] MEDS ORDERED: CefTRIAXone Sodium 2,000 MG in NS 100 ML IV SCH (12:00)
--- NOTE | 2024-05-25 12:30 | NUR ---
PATIENT AFEBRILE. HR IN THE 80S. SBP IN THE 140S. PATIENT TRANSITIONED OFF INSULIN DRIP. PATIENT HAS NO APPETITE AT THIS TIME. PATIENT GIVEN PRN ZOFRAN FOR COMPLAINTS OF NAUSEA. PATIENT ON 2 L NC DESATTED TO 70S WHEN NAPPING. PATIENT STATES SHE HAS BEEN DIAGNOSED WITH SLEEP APNEA IN THE PAST. NO OTHER ACUTE CHANGES TO NOTE ON AT THIS TIME. CARE CONTINUES.
[2024-05-25] MEDS ORDERED: Insulin Glargine-Yfgn 100 Unit/mL 3 ML SYR SC SCH (15:47)
--- NOTE | 2024-05-25 16:00 | NUR ---
PATIENT AFEBRILE. HR IN THE 80S. SBP IN THE 150S. NO COMPLAINTS AT THIS TIME. CARE CONTINUES.
[2024-05-25] MEDS ORDERED: Metoclopramide HCl 5MG / ML 2ML Vial IV PRN (16:05)
--- NOTE | 2024-05-25 18:08 | NUR ---
SHIFT SUMMARY PATIENT REMAINED LETHARGIC AND NAPPED MOST OF SHIFT. PATIENT REMAINED WAKING EASILY TO VERBAL STIMULI AND REMAINED ALERT AND ORIENTED X 4. PATIENT REMAINED AFEBRILE. PATIENT STATED PAIN MANAGEABLE WHEN DOESN'T MOVE AND DID NOT REQUEST PAIN MEDICATIONS AT ALL THIS SHIFT. PATIENT REMAINED IN BED. PATIENT SLIGHTLY SHIFTED HIPS THIS SHIFT BUT REFUSED TO HAVE PATIENT REPOSITION HER. PATIENT DECREASED FROM 2 L NC TO RA THIS SHIFT BUT PLACED BACK ON 2 L NC FOR DESATTING DOWN TO 70S WITH SLEEP. PATIENT REMAINED IN SR, HR RANGING FROM 70S TO 90S. SBP LOW 100S TO 190S. PATIENT HAD NO APPETITE TODAY AND DID NOT EAT A DROP OF FOOD. PATIENT DID DRINK SOME WATER. PATIENT GIVEN PRN ANTIEMETIC TWICE THIS SHIFT UPON REQUEST. PATIENT TRANSITIONED OFF INSULIN DRIP THIS AM. BLOOD SUGARS HAVE RANGED FROM 158 TO 193. NO URINE OUTPUT THIS SHIFT. DIALYSIS PERFORMED THIS SHIFT. NO BM THIS SHIFT. IVS SALINE LOCKED. NEW BLOOD CULTURES SENT TO LAB THIS SHIFT. PATIENT RECEIVED 1 UNIT PRBCS THIS SHIFT FOR HEMOGLOBIN OF 6.0. PATIENT DECLINED BED BATH THIS SHIFT. FIRUTH HERE TO VISIT LATE THIS AFTERNOON. PATIENT HAS NO COMPLAINTS AT THIS TIME. BED LOW, CALL LIGHT IN REACH. REPORT WILL BE GIVEN TO ASSUMING CLINICAL DOCUMENTATION NURSE NURSE SHORTLY.
[2024-05-25 18:11] LABS: BASOPHILS PERCENT AUTO 1 % (0-2); EOSINOPHILS ABSOLUTE AUTO 0.29 K/mm3 (0.00-0.68); EOSINOPHILS PERCENT AUTO 2 % (0-6); Hematocrit 25.9 % (33.0-51.0); Hemoglobin 8.3 g/dL (11.5-16.0); IMMATURE GRAN ABSOLUTE AUTO 0.08 K/mm3 (0.00-0.10); IMMATURE GRAN PERCENT AUTO 1 % (0-1); LYMPHOCYTES ABSOLUTE AUTO 0.79 K/mm3 (0.84-5.20); LYMPHOCYTES PERCENT AUTO 6 % (21-46); MONOCYTES ABSOLUTE AUTO 1.19 K/mm3 (0.16-1.47); MONOCYTES PERCENT AUTO 9 % (4-13); Mean Platelet Volume 11.2 fL (9.1-12.4); NEUTROPHILS ABSOLUTE AUTO 10.52 K/mm3 (1.96-9.15); NEUTROPHILS PERCENT AUTO 81 % (41-73); NRBC ABSOLUTE 0.02 K/mm3 (0.00-0.02); NRBC Auto 0.2 /100 WBC (0.0-0.2); Platelet Count 234 K/mm3 (150-400); RDW Coefficient Variation 13.9 % (11.7-14.2); RDW Standard Deviation 47.7 fL (35.1-46.3); Red Blood Cell Count 2.77 M/mm3 (3.80-5.20); White Blood Cell Count 12.97 K/mm3 (4.00-11.30)
[2024-05-25 18:14] LABS: Mean Corpuscular Volume 94 fL (80-100)
--- NOTE | 2024-05-25 19:00 | NUR ---
ASSUMED CARE OF PATIENT AT 1900. REPORT RECEIVED FROM ALONDRA OHARA. PT RESTING IN BED. 2LPM O2 VIA NC WITH SATURATIONS > 92%. IMMOBILIZER TO L LEG VISUALIZED. PT DENIES PAIN AT THIS TIME. PT DID NOT EAT DINNER, STATING DECREASED APPETITE. VSS AND NO ACUTE NEEDS IDENTIFED AT THIS TIME. SEE SHIFT ASSESSMENT FOR FULL DETAILS.
[2024-05-25] MEDS ORDERED: Lactobacil 2-S.Thermo-Bifido 1 1 Cap PO SCH (21:00)
--- NOTE | 2024-05-25 23:23 | NUR ---
ARRIVAL PT ARRIVED TO THE UNIT ABOUT 2200. PT C/O PAIN IN LLE, IMMOBILIZER IN PLACE. PT ABLE TO MOVE FOOT ON COMMAND. STRONG PULSE NOTED. PT DENIES SENSATION CHANGES. ON 2L VIA NC, PT REPORTS SHE WEARS IT DUE TO DESATTING WITH PAIN MEDICATION. PT A/OX4, DENIES SOB OR CP. VSS. PT REPORTS SHE NEEDED TO BE STRAIT CATHED TODAY, PLAN TO BLADDER SCAN AROUND 0200. PT MEDICATED PER EMAR FOR PAIN CONTROL. 2 IV LINES NOTED. PERITONEAL DIALYSIS SITE IS C/D/I, HEMODIALYSIS SITE IS C/D/I. PLAN FOR DIALYSIS TOMORROW AND AWAITING BLOOD CULTURES
[2024-05-26] VITALS (25 sets, daily range): BP systolic 124–190; BP diastolic 53–86
[2024-05-26 04:41] LABS: BASOPHILS ABSOLUTE AUTO 0.07 K/mm3 (0.00-0.23); BASOPHILS PERCENT AUTO 1 % (0-2); EOSINOPHILS ABSOLUTE AUTO 0.35 K/mm3 (0.00-0.68); EOSINOPHILS PERCENT AUTO 3 % (0-6); Hematocrit 24.5 % (33.0-51.0); IMMATURE GRAN ABSOLUTE AUTO 0.08 K/mm3 (0.00-0.10); IMMATURE GRAN PERCENT AUTO 1 % (0-1); LYMPHOCYTES ABSOLUTE AUTO 1.42 K/mm3 (0.84-5.20); LYMPHOCYTES PERCENT AUTO 13 % (21-46); MONOCYTES ABSOLUTE AUTO 0.97 K/mm3 (0.16-1.47); MONOCYTES PERCENT AUTO 9 % (4-13); Mean Corpuscular HGB 30.7 pg (26.0-34.0); Mean Corpuscular HGB Conc 32.7 g/dL (31.5-36.5); Mean Corpuscular Volume 94 fL (80-100); Mean Platelet Volume 11.7 fL (9.1-12.4); NEUTROPHILS PERCENT AUTO 73 % (41-73); Platelet Count 234 K/mm3 (150-400); RDW Coefficient Variation 13.9 % (11.7-14.2); RDW Standard Deviation 47.6 fL (35.1-46.3); Red Blood Cell Count 2.61 M/mm3 (3.80-5.20); White Blood Cell Count 10.59 K/mm3 (4.00-11.30)
[2024-05-26 05:09] LABS: Albumin, Blood 2.3 g/dL (3.4-5.0); Albumin/Globulin Ratio 0.6 (0.8-1.8); Bilirubin, Total 0.4 mg/dL (0.1-1.0); Bun/Creatinine Ratio 4.7 (12.0-20.0); Calcium, Blood 8.6 mg/dL (8.5-10.1); Creatinine, Blood 6.45 mg/dL (0.40-1.00); Globulin, Blood 3.8 g/dL (2.2-4.0); Magnesium, Blood 2.2 mg/dL (1.6-2.4); Phosphorus, Blood 7.3 mg/dL (2.5-4.9); Potassium, Blood 3.7 mmol/L (3.5-5.5); Total Protein, Blood 6.1 g/dL (6.4-8.2)
--- NOTE | 2024-05-26 05:15 | NUR ---
SHIFT SUMMARY VSS. PT HAS SLEPT ON AND OFF SINCE ARRIVING TO THE UNIT. MEDICATED FOR PAIN WITH PRN'S WITH TOLLERABLE RESULTS. PT HAD A VERY POOR APPETITE THIS EVENING AND WAS EXPERIENCING NAUSEA, NO EMESIS. MEDICATED PER EMAR AND GIVEN ICE PACKS TO HELP COOL DOWN. LLE REMAINS IN IMMOBILIZER, PT ABLE TO MOVE FOOT ON COMMAND. FAINT PULSE NOTED, BUT FOOT IS WARM TO THE TOUCH. PT HAS NOT VOIDED T/O THE NIGHT, REPORTS SHE HAS NO URGE TO VOID AND THAT SHE HAS BEEN PREVIOUSLY STRAIT CATHED DURING THIS ADMISSION. PLAN TO REPEATE BLADDER SCAN THIS AM. OVERALL NO ACUTE EVENTS NOTED, PLAN TO AWAIT BLOOD CULTURE RESULTS FOR ORTHOPEDIC INTERVENTION.
[2024-05-26 08:14] LABS: Source, Urine Foley catheter
[2024-05-26 08:20] LABS: Appearance, Urine Hazy (Clear); Bilirubin, Urine Neg (Neg); Blood, Urine 2+ (Neg); Color, Urine Yellow (P-Yellow); Glucose Qualitative, Urine 1+ (Neg); Ketones, Urine 1+ (Neg); Leukocyte Esterase, Urine 3+ (Neg); Nitrite, Urine Neg (Neg); Protein, Urine 4+ (Neg); Urobilinogen, Urine NORM (Normal)
[2024-05-26 08:27] LABS: White Blood Cells, Urine 50-100 /hpf (0-5)
[2024-05-26 08:28] LABS: Bacteria Few /hpf; Squamous Epithelial Cells Few /hpf (Few); Yeast/Fungi Urine Many /hpf
--- NOTE | 2024-05-26 08:30 | NUR ---
PATIENT IS AT DIALYSIS IN HER BED.
[2024-05-26] MEDS ORDERED: Promethazine HCl 25 MG Tab PO PRN (11:20)
[2024-05-26] MEDS ORDERED: NS 500 ML IV SCH (15:25)
[2024-05-26] MEDS ORDERED: NS 1,000 ML IV SCH (16:00)
[2024-05-26] MEDS ORDERED: Midazolam HCl 1MG / ML 2ML Vial ONE ×2 (16:20→16:36)
[2024-05-26] MEDS ORDERED: FentaNYL Citrate 50 MCG/ML 2 ML Injection ONE (16:20)
[2024-05-26] MEDS ORDERED: Bupivacaine 0.5% Inj 10 ML Vial ONE ×2 (16:28)
[2024-05-26] MEDS ORDERED: NS 250 ML IV PRN (18:00)
[2024-05-27] VITALS (22 sets, daily range): BP systolic 140–214; BP diastolic 57–107
[2024-05-27] MEDS ORDERED: tadalafiL 5 MG Tab PO SCH (09:00)
[2024-05-27] MEDS ORDERED: Ergocalciferol 50000 Intn'l Units PO SCH (09:00)
[2024-05-27] MEDS ORDERED: Famotidine 20 MG Tab PO SCH (09:00)
[2024-05-27] MEDS ORDERED: Ondansetron HCl 2 MG / ML 2ML Vial ONE ×2 (12:55→15:24)
[2024-05-27] MEDS ORDERED: NS 1,000 ML IV ONE (13:13)
[2024-05-27] MEDS ORDERED: FentaNYL Citrate 50 MCG/ML 5 ML Injection ONE (13:36)
[2024-05-27] MEDS ORDERED: propofoL 20 ML IV ONE (13:37)
[2024-05-27] MEDS ORDERED: Midazolam HCl 1MG / ML 2ML Vial ONE (13:37)
[2024-05-27] MEDS ORDERED: Rocuronium Bromide 10 MG/ML 5ML Injection IV ONE (13:38)
[2024-05-27] MEDS ORDERED: Phenylephrine HCl 100 MCG/ML-NS 10MLSYR (1MG/10ML) ONE (13:40)
[2024-05-27] MEDS ORDERED: Bupivacaine 0.5% Inj 10 ML Vial ONE (13:48)
[2024-05-27] MEDS ORDERED: EpiNEPhrine 1 MG/1 ML 1ML Vial ONE ×2 (13:48→14:42)
[2024-05-27] MEDS ORDERED: Tranexamic Acid 100 ML IV SCH (13:55)
[2024-05-27] MEDS ORDERED: CeFAZolin Sodium 2,000 MG in NS 100 ML IV SCH (13:55)
[2024-05-27] MEDS ORDERED: Chlorhexidine Mouth Care 15 ML UDC MT SCH (14:00)
[2024-05-27 14:12] LABS: Hematocrit 29.9 % (33.0-51.0); Hemoglobin 9.6 g/dL (11.5-16.0)
[2024-05-27] MEDS ORDERED: Sugammadex Sodium 200 MG/2ML SDV (100 MG/ML) ONE (14:36)
[2024-05-27] MEDS ORDERED: Metoclopramide HCl 5MG / ML 2ML Vial ONE (15:24)
[2024-05-27] MEDS ORDERED: HYDROmorphone HCl/Pf 1MG SYR ONE ×2 (16:14→16:57)
[2024-05-27] MEDS ORDERED: Bupivacaine HCl 2.5 MG/ML 10ML P/F Injection ONE (16:58)
[2024-05-27] MEDS ORDERED: FentaNYL Citrate 50 MCG/ML 2 ML Injection ONE (17:44)
--- NOTE | 2024-05-27 20:03 | NUR ---
PT STABLE POST OP DAY 0 FOR RODDING. DRESSING TO LEFT LEG CDI. PAS TO RIGHT LEG. PT BLOOD SUGAR STABLE. STARTING TO TAKE SMALL AMTS PO. 2L NC IN PLACE WITH CONT BIOX FOR HIGH RISK PAIN MANAGEMENT. PAIN CONSISTENTLY 9/10 POST OP BUT PT RESTS PEACEFULLY WHEN NOT DISTURBED. MEDICATED PER EMAR. MEPILEX TO RIGHT CHEST CDI. CULTURES OF PREVIOUS CATH NEGATIVE THUS FAR. POWERGLIDE TO RIGHT UPPER ARM PATENT. PEARSON DRAINING SMALL AMT PARESH URINE. AM LABS ORDERED. SIGNIFICANT OTHER AT BEDSIDE, ATTENTIVE.
--- NOTE | 2024-05-27 22:30 | NUR ---
CALLED [facility] TO CONFIRM WHETHER TO GIVE HEPARIN. MALATHI OKD TO GIVE HEPARIN ORDERED.
[2024-05-28] VITALS (13 sets, daily range): BP systolic 122–166; BP diastolic 49–79
[2024-05-28 04:38] LABS: BASOPHILS ABSOLUTE AUTO 0.07 K/mm3 (0.00-0.23); BASOPHILS PERCENT AUTO 1 % (0-2); EOSINOPHILS ABSOLUTE AUTO 0.31 K/mm3 (0.00-0.68); EOSINOPHILS PERCENT AUTO 3 % (0-6); Hematocrit 26.6 % (33.0-51.0); Hemoglobin 8.7 g/dL (11.5-16.0); IMMATURE GRAN ABSOLUTE AUTO 0.09 K/mm3 (0.00-0.10); IMMATURE GRAN PERCENT AUTO 1 % (0-1); LYMPHOCYTES ABSOLUTE AUTO 1.42 K/mm3 (0.84-5.20); LYMPHOCYTES PERCENT AUTO 13 % (21-46); MONOCYTES PERCENT AUTO 9 % (4-13); Mean Corpuscular HGB 30.4 pg (26.0-34.0); Mean Corpuscular HGB Conc 32.7 g/dL (31.5-36.5); Mean Corpuscular Volume 93 fL (80-100); Mean Platelet Volume 11.3 fL (9.1-12.4); NEUTROPHILS ABSOLUTE AUTO 8.04 K/mm3 (1.96-9.15); NEUTROPHILS PERCENT AUTO 74 % (41-73); Platelet Count 233 K/mm3 (150-400); RDW Coefficient Variation 13.7 % (11.7-14.2); RDW Standard Deviation 45.5 fL (35.1-46.3); Red Blood Cell Count 2.86 M/mm3 (3.80-5.20); White Blood Cell Count 10.93 K/mm3 (4.00-11.30)
--- NOTE | 2024-05-28 04:47 | NUR ---
SHIFT SUMMARY PT IS POD1 FOR A L INTERMEDULLARY JOSE PLACEMENT. PT IS A/O X4, HAS NOT YET AMBULATED SINCE SURGERY. DRESSINGS REMAIN C/D/I. PT ABLE TO WIGGLE TOES, PEDAL PULSE IN L FOOT PALPABLE. PAIN MEDS GIVEN PER EMAR, PT EDUCATED ON RISK FOR RESPIRATORY DEPRESSION REGARDING NARCOTIC USE AND RENAL FAILURE. CONT BIOX ON. PT W/ SCANT URINARY OUTPUT PER PEARSON BUT STATES BASELINE MINIMAL VOIDING W/ CHRONIC RENAL FAILURE. PT BASELINE HEMO AND PERITONEAL DIALYSIS, PLAN TO RESUME TODAY PER DR RONQUILLO. SEE ABNORMAL LABS. VSS, PT GIVEN SCHEDULED ANTIHYPERTENSIVES. O2 SATS 94% ON 1L NC, PT DENIES SOB. USING CALL LIGHT APPROPRIATELY. SPOUSE IN ROOM.
[2024-05-28 05:00] LABS: Magnesium, Blood 2.4 mg/dL (1.6-2.4)
[2024-05-28 05:57] LABS: Albumin, Blood 2.4 g/dL (3.4-5.0); Albumin/Globulin Ratio 0.6 (0.8-1.8); Bilirubin, Total 0.4 mg/dL (0.1-1.0); Bun/Creatinine Ratio 5.9 (12.0-20.0); Calcium, Blood 8.8 mg/dL (8.5-10.1); Creatinine, Blood 7.86 mg/dL (0.40-1.00); Globulin, Blood 3.7 g/dL (2.2-4.0); Potassium, Blood 4.2 mmol/L (3.5-5.5); Total Protein, Blood 6.1 g/dL (6.4-8.2)
[2024-05-28 05:59] LABS: Phosphorus, Blood 8.2 mg/dL (2.5-4.9)
--- NOTE | 2024-05-28 06:54 | NUR ---
phone call to dr matamoros and advised of phosphorous 8.2 per progress notes plans for dialysis today.no change of orders.
--- NOTE | 2024-05-28 09:51 | NUR ---
BLOOD TRANSFUSION DOCUMENTATION BLOOD TRANSFUSION WAS STOPPED PRIOR TO THIS RN'S SHIFT. UNABLE TO DETERMINE AT WHAT TIME IT WAS STOPPED. DOCUMENTED THAT IT WAS STOPPED AT THIS TIME TO STOP IT FROM FLAGGING STILL TRANSFUSING.
[2024-05-28 19:41] LABS: Hematocrit 27.3 % (33.0-51.0)
--- NOTE | 2024-05-28 19:55 | NUR ---
SHIFT SUMMARY PT IS POD#1. PAIN HAS BEEN DIFFICULT TO MANAGE, SHE IS GETTING TYLENOL, OXY, DILAUDID AND FLEXERIL TO MANAGE PAIN. PT HAS HAD MINIMAL INTAKE THIS SHIFT. PT HAD DIALYSIS THIS AM. BEDSIDE REPORT GIVEN TO POONAM CANTU.
[2024-05-29 03:49] VITALS: BP 155/78
[2024-05-29 03:51] LABS: BASOPHILS ABSOLUTE AUTO 0.07 K/mm3 (0.00-0.23); BASOPHILS PERCENT AUTO 1 % (0-2); EOSINOPHILS ABSOLUTE AUTO 0.41 K/mm3 (0.00-0.68); EOSINOPHILS PERCENT AUTO 3 % (0-6); Hematocrit 27.5 % (33.0-51.0); IMMATURE GRAN ABSOLUTE AUTO 0.07 K/mm3 (0.00-0.10); IMMATURE GRAN PERCENT AUTO 1 % (0-1); LYMPHOCYTES ABSOLUTE AUTO 1.77 K/mm3 (0.84-5.20); LYMPHOCYTES PERCENT AUTO 13 % (21-46); MONOCYTES ABSOLUTE AUTO 1.24 K/mm3 (0.16-1.47); MONOCYTES PERCENT AUTO 9 % (4-13); Mean Corpuscular HGB 30.2 pg (26.0-34.0); Mean Corpuscular HGB Conc 32.7 g/dL (31.5-36.5); Mean Corpuscular Volume 92 fL (80-100); Mean Platelet Volume 10.8 fL (9.1-12.4); NEUTROPHILS ABSOLUTE AUTO 9.65 K/mm3 (1.96-9.15); NEUTROPHILS PERCENT AUTO 73 % (41-73); Platelet Count 248 K/mm3 (150-400); RDW Coefficient Variation 13.8 % (11.7-14.2); RDW Standard Deviation 45.1 fL (35.1-46.3); Red Blood Cell Count 2.98 M/mm3 (3.80-5.20); White Blood Cell Count 13.21 K/mm3 (4.00-11.30)
--- NOTE | 2024-05-29 04:11 | NUR ---
SHIFT SUMMARY POD2 FOR A L HIP JOSE PLACEMENT. FOAM TAPE DRESSING C/D/I, UNABLE TO VISUALIZE SOME DRESSINGS DUE TO RUI WRAP. PT CAN WIGGLE L TOES AND PEDAL PULSE IS PALPABLE. PT DID NOT REQUIRE CBG COVERAGE. VSS. PT HAS NOT YET AMBULATED SINCE SURGERY BUT IS WBAT ON L LEG. CONT BIOX ON, PT REQUIRING 2-3L NC TO KEEP O2 SATS ABOVE 92%. ENCOURAGED TO DB&C. MEDICATED FOR PAIN PER EMAR, PT STILL COMPLAINS OF PAIN BUT IS ABLE TO REST PEACEFULLY. TOLERATING DIET. USING CALL LIGHT APPROPRIATELY. SPOUSE IN ROOM.
[2024-05-29 04:19] LABS: Albumin, Blood 2.3 g/dL (3.4-5.0); Albumin/Globulin Ratio 0.5 (0.8-1.8); Bilirubin, Total 0.4 mg/dL (0.1-1.0); Bun/Creatinine Ratio 5.1 (12.0-20.0); Calcium, Blood 9.2 mg/dL (8.5-10.1); Creatinine, Blood 6.73 mg/dL (0.40-1.00); Globulin, Blood 4.3 g/dL (2.2-4.0); Potassium, Blood 3.7 mmol/L (3.5-5.5); Total Protein, Blood 6.6 g/dL (6.4-8.2)
[2024-05-29 06:22] VITALS: BP 155/67
[2024-05-29] MEDS ORDERED: OxyCODONE HCL 5 MG TAB PO ONE (07:55)
[2024-05-29] MEDS ORDERED: OxyCODONE HCL 5 MG TAB PO PRN (12:38)
[2024-05-29 16:40] VITALS: BP 160/74
[2024-05-29] MEDS ORDERED: Insulin Glargine-Yfgn 100 Unit/mL 3 ML SYR SC SCH (18:00)
[2024-05-29 19:33] VITALS: BP 129/67
--- NOTE | 2024-05-29 19:43 | NUR ---
SHIFT SUMMARY PT IS POD#2 FROM [facility]. PAIN MANAGED WITH OXY, TYLENOL, TORADOL, AND FLEXERIL. PT WORKED WITH PHYSICAL THERAPY TODAY AND WAS ABLE TO STAND AT THE EDGE OF THE BED. PT'S BLOOD GLUCOSE HAS INCREASED T/O THE DAY DESPITE MINIMAL INTAKE, DR. MICHELLE NOTIFIED AND BASAL INSULIN INCREASED TO 20 UNITS. PT REPORTS SHE TAKES 26 UNITS AT BASELINE. PT USES CALL LIGHT APPROPRIATELY. BEDSIDE REPORT GIVEN TO TALI RN, PT PARTICIPATED WITH BEDSIDE REPORT.
[2024-05-29] MEDS ORDERED: Docusate Sodium/Senna 1 Tab PO SCH (21:00)
[2024-05-29] MEDS ORDERED: Polyethylene Glycol 3350 17 gm PO SCH (21:00)
[2024-05-30] VITALS (8 sets, daily range): BP systolic 141–193; BP diastolic 57–166
[2024-05-30 04:52] LABS: BASOPHILS ABSOLUTE AUTO 0.06 K/mm3 (0.00-0.23); BASOPHILS PERCENT AUTO 1 % (0-2); EOSINOPHILS ABSOLUTE AUTO 0.51 K/mm3 (0.00-0.68); EOSINOPHILS PERCENT AUTO 5 % (0-6); Hematocrit 25.9 % (33.0-51.0); Hemoglobin 8.5 g/dL (11.5-16.0); IMMATURE GRAN ABSOLUTE AUTO 0.12 K/mm3 (0.00-0.10); IMMATURE GRAN PERCENT AUTO 1 % (0-1); LYMPHOCYTES ABSOLUTE AUTO 1.67 K/mm3 (0.84-5.20); LYMPHOCYTES PERCENT AUTO 16 % (21-46); MONOCYTES ABSOLUTE AUTO 1.07 K/mm3 (0.16-1.47); MONOCYTES PERCENT AUTO 10 % (4-13); Mean Corpuscular HGB Conc 32.8 g/dL (31.5-36.5); Mean Corpuscular Volume 92 fL (80-100); Mean Platelet Volume 10.6 fL (9.1-12.4); NEUTROPHILS ABSOLUTE AUTO 7.06 K/mm3 (1.96-9.15); NEUTROPHILS PERCENT AUTO 67 % (41-73); Platelet Count 263 K/mm3 (150-400); RDW Coefficient Variation 13.8 % (11.7-14.2); RDW Standard Deviation 44.6 fL (35.1-46.3); Red Blood Cell Count 2.83 M/mm3 (3.80-5.20); White Blood Cell Count 10.49 K/mm3 (4.00-11.30)
[2024-05-30 05:35] LABS: Albumin, Blood 2.2 g/dL (3.4-5.0); Albumin/Globulin Ratio 0.5 (0.8-1.8); Bilirubin, Total 0.4 mg/dL (0.1-1.0); Calcium, Blood 8.8 mg/dL (8.5-10.1); Globulin, Blood 4.4 g/dL (2.2-4.0); Potassium, Blood 4.3 mmol/L (3.5-5.5); Total Protein, Blood 6.6 g/dL (6.4-8.2)
[2024-05-30 05:38] LABS: Bun/Creatinine Ratio 5.3 (12.0-20.0); Creatinine, Blood 8.53 mg/dL (0.40-1.00)
--- NOTE | 2024-05-30 05:43 | NUR ---
SHIFT SUMMARY PT ABLE TO REST MOST OF SHIFT. DRESSINGS REMAIN C/D/I. NO SIGNIFICANT CHANGE IN PT CONDITION. VSS. PAIN MANAGED WITH PO OXY AND FLEXERIL. REQUIRING 2-3L OF O2 NC, CONT BIOX IN PLACE, DENIES SOB. PEARSON IN PLACE DRAINING MINIMAL URINE. DIALYSIS PLANNED FOR TODAY. USING CALL LIGHT APPROPRIATELY.
[2024-05-30] MEDS ORDERED: HYDROmorphone HCl/Pf 1MG SYR IV PRN (08:10)
--- NOTE | 2024-05-30 09:51 | NUR ---
CALL FROM [facility] IN DIALYSIS; PT MOVED ARM AND UNABLE TO CATH TODAY FOR DIALYSIS. BLOOD RETURNED AND DIALYSIS TO RESUME TOMORROW INSTEAD OF TODAY............
--- NOTE | 2024-05-30 11:36 | NUR ---
DR JUAREZ TO BEDSIDE THIS MORNING. GIVEN VERBAL ORDERS TO INCREASE ROUTINE AC HUMALOG TO 5u QAC AND INCREASE GLARGINE TO 25u QHS.
[2024-05-30] MEDS ORDERED: OxyCODONE HCL 5 MG TAB PO PRN (12:50)
--- NOTE | 2024-05-30 16:24 | NUR ---
PATIENT STAND-PIVOT TO RECLINER WITH GAIT BELT AND FWW WITH OT. PAINFUL, BUT COOPERATIVE. COMPLETE LINEN CHANGE PROVIDED. REQUESTING PAIN MEDICATION: GIVEN PRN CYCLOBENZAPRINE AND APAP.
--- NOTE | 2024-05-30 17:14 | NUR ---
PATIENT CALLING FOR PAIN MEDICATIONS FOR THIRD TIME, DESPITE HAVING BEEN TOLD THIS IS NOT DUE UNTIL 1748. REQUESTING TO HAVE SLIGHTLY SOONER. UNABLE TO OBGLIGE.
[2024-05-30] MEDS ORDERED: Insulin Human Lispro 100 Units/ML 3ML Syringe SC SCH (17:30)
[2024-05-30] MEDS ORDERED: Insulin Glargine-Yfgn 100 Unit/mL 3 ML SYR SC SCH (18:00)
--- NOTE | 2024-05-30 19:42 | NUR ---
DAY SHIFT SUMMARY: A&Ox4. PLEASANT AND COOPERATIVE WITH MOST CARE, THOUGH REQUIRES ENCOURAGEMENT TO PARTICIPATE IN ADLs. STAND-PIVOT TO CHAIR WITH ENCOURAGEMENT FROM OT. DECLINED TO WORK WITH PT. UNABLE TO COMPLETE DIALYSIS TREATMENT DUE TO DECANNULATION; SCHEDULED FOR DIALYSIS TOMORROW. DR BURGESS NOTIFIED BY DIALYSIS STAFF. PAIN MEDS CHANGED TO 5MG q4h PRN FOR BETTER COVERAGE; SHE DID CALL SEVERAL TIMES OVER THE COURSE OF TWO HOURS ASKING FOR PAIN MEDICATIONS STATING "SHE FORGOT". TKO RUNNING; EXPRESSED FEAR OF FLUID OVERLOAD. ASSURED HER THIS WAS ONLY 10mL/HR TO KEEP THE VEIN OPEN AND WOULD NOT OVERLOAD HER; SHE THEN TOLD ME IT WAS ALSO THAT THE CLICKING WAS BOTHERING HER. DISCUSSED IMPORTANCE OF MAITNAINING PATENT IV ACCESS AND SHE AGREED TO KEEP IT GOING. PEARSON PATENT AND DRAINING TO GRAVITY; DID NOT REMOVE TODAY SHE IS STILL NOT AMBULATING. DR JUAREZ REMOVED BANDAGE TO SURGICAL SITE: 8cm VERTICAL INCISION ANTERIOR THIGH AND TWO SMALLER ANTEROLATERAL INCISIONS. NO S/SX INFX. REDRESSED WITH AQUACEL. VSS. GLUCOSE HIGH THIS MORNING WITH DOWNWARD TREND THROUGHOUT THE DAY. COVERAGE INCREASED FOLLOWS: LISPRO INCREASED TO 5u AC AND GLARGINE INCREASED TO 25u QHS. NO BM TODAY AND DENIED BOWEL PROTOCOL MEDS OFFERED BY PROVIDER. BED IN LOWEST POSITION. CALL LIGHT WITHIN REACH. ALL NEEDS MET. SIGNIFICANT OTHER AT BEDSIDE. REPORT TO ONCFLORES RN.
[2024-05-31] VITALS (15 sets, daily range): BP systolic 118–170; BP diastolic 26–82
--- NOTE | 2024-05-31 05:14 | NUR ---
SHIFT SUMMARY PT WAS ABLE TO REST/SLEEP MOST OF SHIFT. REQUIRING PAIN MEDICATION LESS OFTEN. VSS. CBG TRENDING DOWN, INSTRUCTED PT TO REPORT S/S OF HYPOGLYCEMIA. CONT BIOX ON, O2 SATS >92% ON 2L NC. PT PULLS OFF NC AT TIMES WHILE SLEEPING. PT STOOD AND PIVOTED TO BED W/ INCREASED PAIN. PEARSON IN PLACE DRAINING MINIMAL URINE. DRESSINGS C/D/I. L PEDAL PULSE PALPABLE. SPOUSE IN ROOM. PT USING CALL LIGHT APPROPRIATELY. PLAN FOR DIALYSIS IN AM.
[2024-05-31 05:25] LABS: BASOPHILS ABSOLUTE AUTO 0.03 K/mm3 (0.00-0.23); BASOPHILS PERCENT AUTO 0 % (0-2); EOSINOPHILS ABSOLUTE AUTO 0.61 K/mm3 (0.00-0.68); EOSINOPHILS PERCENT AUTO 6 % (0-6); Hematocrit 28.1 % (33.0-51.0); Hemoglobin 8.8 g/dL (11.5-16.0); IMMATURE GRAN ABSOLUTE AUTO 0.08 K/mm3 (0.00-0.10); IMMATURE GRAN PERCENT AUTO 1 % (0-1); LYMPHOCYTES ABSOLUTE AUTO 1.97 K/mm3 (0.84-5.20); LYMPHOCYTES PERCENT AUTO 21 % (21-46); MONOCYTES ABSOLUTE AUTO 1.13 K/mm3 (0.16-1.47); MONOCYTES PERCENT AUTO 12 % (4-13); Mean Corpuscular HGB 29.4 pg (26.0-34.0); Mean Corpuscular HGB Conc 31.3 g/dL (31.5-36.5); Mean Corpuscular Volume 94 fL (80-100); Mean Platelet Volume 11.1 fL (9.1-12.4); NEUTROPHILS ABSOLUTE AUTO 5.75 K/mm3 (1.96-9.15); NEUTROPHILS PERCENT AUTO 60 % (41-73); Platelet Count 274 K/mm3 (150-400); RDW Coefficient Variation 14.1 % (11.7-14.2); Red Blood Cell Count 2.99 M/mm3 (3.80-5.20); White Blood Cell Count 9.57 K/mm3 (4.00-11.30)
[2024-05-31 06:03] LABS: Magnesium, Blood 2.6 mg/dL (1.6-2.4)
[2024-05-31 06:58] LABS: Albumin, Blood 2.2 g/dL (3.4-5.0); Anion Gap 17 mmol/L (3-11); Blood Urea Nitrogen 51 mg/dL (8-24); Bun/Creatinine Ratio 5.2 (12.0-20.0); CO2, Blood 26 mmol/L (21-32); Calcium, Blood 9.3 mg/dL (8.5-10.1); Chloride, Blood 96 mmol/L (98-108); Creatinine, Blood 9.89 mg/dL (0.40-1.00); Glomerular Filtration Rate 5 (60-); Glucose, Blood 112 mg/dL (70-99); Phosphorus, Blood 8.8 mg/dL (2.5-4.9); Potassium, Blood 4.1 mmol/L (3.5-5.5); Sodium, Blood 135 mmol/L (136-145)
[2024-05-31 07:29] LABS: Albumin, Blood 2.2 g/dL (3.4-5.0); Albumin/Globulin Ratio 0.5 (0.8-1.8); Bilirubin, Total 0.3 mg/dL (0.1-1.0); Calcium, Blood 9.6 mg/dL (8.5-10.1); Globulin, Blood 4.3 g/dL (2.2-4.0); Potassium, Blood 4.1 mmol/L (3.5-5.5); Total Protein, Blood 6.5 g/dL (6.4-8.2)
[2024-05-31 07:44] LABS: Bun/Creatinine Ratio 5.5 (12.0-20.0); Creatinine, Blood 9.63 mg/dL (0.40-1.00)
[2024-05-31] MEDS ORDERED: Insulin Human Lispro 100 Units/ML 3ML Syringe SC SCH ×2 (08:30→11:30)
--- NOTE | 2024-05-31 15:11 | NUR ---
ROOM AIR TRIAL O2 LEVELS DROPPED TO 85% WHILE AWAKE. 2L NC REAPPLIED & O2 LEVELS TO 96%.
--- NOTE | 2024-05-31 20:00 | NUR ---
SHIFT SUMMARY PT HAS DONE WELL TODAY BUT DC WAS DELAYED. PT WAS ABLE TO MAKE ARRANGEMENTS FOR DC TOMORROW. DIALYSIS TODAY. UP TO CHAIR w/ THERAPY.
[2024-06-01 04:56] LABS: BASOPHILS ABSOLUTE AUTO 0.05 K/mm3 (0.00-0.23); BASOPHILS PERCENT AUTO 1 % (0-2); EOSINOPHILS ABSOLUTE AUTO 0.51 K/mm3 (0.00-0.68); EOSINOPHILS PERCENT AUTO 6 % (0-6); Hematocrit 26.7 % (33.0-51.0); Hemoglobin 8.6 g/dL (11.5-16.0); IMMATURE GRAN ABSOLUTE AUTO 0.04 K/mm3 (0.00-0.10); IMMATURE GRAN PERCENT AUTO 1 % (0-1); LYMPHOCYTES ABSOLUTE AUTO 1.56 K/mm3 (0.84-5.20); LYMPHOCYTES PERCENT AUTO 19 % (21-46); MONOCYTES ABSOLUTE AUTO 0.93 K/mm3 (0.16-1.47); MONOCYTES PERCENT AUTO 12 % (4-13); Mean Corpuscular HGB 30.2 pg (26.0-34.0); Mean Corpuscular HGB Conc 32.2 g/dL (31.5-36.5); Mean Corpuscular Volume 94 fL (80-100); Mean Platelet Volume 10.3 fL (9.1-12.4); NEUTROPHILS ABSOLUTE AUTO 4.94 K/mm3 (1.96-9.15); NEUTROPHILS PERCENT AUTO 62 % (41-73); Platelet Count 296 K/mm3 (150-400); RDW Coefficient Variation 14.2 % (11.7-14.2); RDW Standard Deviation 46.2 fL (35.1-46.3); Red Blood Cell Count 2.85 M/mm3 (3.80-5.20); White Blood Cell Count 8.03 K/mm3 (4.00-11.30)
[2024-06-01 05:07] VITALS: BP 145/62
--- NOTE | 2024-06-01 05:51 | NUR ---
SHIFT SUMMARY NO ACUTE CHANGE TO REPORT OVERNIGHT. PT HAS RESTED T/O THE NIGHT. VITALS ARE STABLE. MEDICATED FOR PAIN PRN PER EMAR. SURGICAL SITE WNL. PLAN OF CARE REMAINS UNCHANGED. PT TO DC HOME TODAY.
[2024-06-01 06:25] LABS: Albumin, Blood 2.1 g/dL (3.4-5.0); Anion Gap 14 mmol/L (3-11); Blood Urea Nitrogen 37 mg/dL (8-24); Bun/Creatinine Ratio 4.7 (12.0-20.0); CO2, Blood 28 mmol/L (21-32); Calcium, Blood 9.3 mg/dL (8.5-10.1); Chloride, Blood 96 mmol/L (98-108); Glomerular Filtration Rate 7 (60-); Glucose, Blood 73 mg/dL (70-99); Phosphorus, Blood 6.4 mg/dL (2.5-4.9); Potassium, Blood 3.8 mmol/L (3.5-5.5); Sodium, Blood 134 mmol/L (136-145)
[2024-06-01 07:38] VITALS: BP 149/64
[2024-06-01] MEDS ORDERED: Furosemide 40 MG Tab PO ONE (10:00)
[2024-06-01 14:59] VITALS: BP 169/87
[2024-06-01] MEDS ORDERED: OXYC5 PO (14:59)
[2024-06-01] MEDS ORDERED: CYCL10 PO (14:59)
--- NOTE | 2024-06-01 17:07 | NUR ---
DISCHARGE VIA WC TRANSPORT. BELONGINGS, DRSGS, & RX GIVEN. PT NERVOUS BUT EXCITED.
== END 2024-06-01 17:06 | disposition home health service (06) | DRG 480 ==
LOC: ER 17:03 → PCU 21:57 → SURS 21:57 → ERHOLD 21:57 → ICUE 21:57 → PCU 05-22 09:38 → ICUE 05-24 12:00 → SURS 05-25 22:00
PROVIDERS: Anesthesiology; Emergency Medicine; Family Medicine; Family Medicine Adult Medicine; Hospitalist; Internal Medicine; Student in an Organized Health Care Education/Training Program; ADMIT Internal Medicine
PROC: 3E03329 Introduction of Other Anti-infective into Peripheral Vein, Percutaneous Approach (ICD-10-PCS; 2024-05-21)
PROC: 5A1D70Z Performance of Urinary Filtration, Intermittent, Less than 6 Hours Per Day (ICD-10-PCS; 2024-05-23)
PROC: 30233N1 Transfusion of Nonautologous Red Blood Cells into Peripheral Vein, Percutaneous Approach (ICD-10-PCS; principal; 2024-05-25)
PROC: 05PYX3Z Removal of Infusion Device from Upper Vein, External Approach (ICD-10-PCS; 2024-05-26)
PROC: 0QSC34Z Reposition Left Lower Femur with Internal Fixation Device, Percutaneous Approach (ICD-10-PCS; 2024-05-27)
DX: S72.492A Other fracture of lower end of left femur, initial encounter for closed fracture (principal); A41.9 Sepsis, unspecified organism; N18.6 End stage renal disease; T80.211A Bloodstream infection due to central venous catheter, initial encounter; E87.20 Acidosis, unspecified; I12.0 Hypertensive chronic kidney disease with stage 5 chronic kidney disease or end stage renal disease; Z68.41 Body mass index [BMI] 40.0-44.9, adult; J45.909 Unspecified asthma, uncomplicated; E03.9 Hypothyroidism, unspecified; E66.01 Morbid (severe) obesity due to excess calories; D63.1 Anemia in chronic kidney disease; S82.832A Other fracture of upper and lower end of left fibula, initial encounter for closed fracture; E10.22 Type 1 diabetes mellitus with diabetic chronic kidney disease; E87.5 Hyperkalemia; E10.21 Type 1 diabetes mellitus with diabetic nephropathy; F12.90 Cannabis use, unspecified, uncomplicated; Z99.2 Dependence on renal dialysis; Z79.4 Long term (current) use of insulin; W10.1XXA Fall (on)(from) sidewalk curb, initial encounter; Z86.73 Personal history of transient ischemic attack (TIA), and cerebral infarction without residual deficits; Z98.51 Tubal ligation status; Z79.899 Other long term (current) drug therapy; Z79.890 Hormone replacement therapy; Z87.891 Personal history of nicotine dependence; Z86.16 Personal history of COVID-19
CPT/HCPCS: 0241U; 36415; 36416; 36430; 71046; 73552; 73590; 73600; 73620; 80048; 80053; 80069; 81001; 82947; 83540; 83550; 83605; 83735; 84100; 85014; 85018; 85025; 86850; 86900; 86901; 86923; 87040; 87070; 87077; 87186; 90471; 90715; 93005; 93010; 94640; 94664; 94762; 96374; 96375; 96376; 97110; 97112; 97161; 97165; 97530; 97535; 99284-25; A9270; C1713; C1751; C1769; J0171; J0612; J0692; J0696; J1170; J1644; J1815; J2250; J2371; J2405; J2704; J2765; J3010; J7030; J7042; J7070; J7120; P9016; Q5106

== ENCOUNTER 2024-07-05 10:36 | Emergency (ER) | payer OTHER ==
[2024-07-05] VITALS (12 sets, daily range): BP systolic 122–224; BP diastolic 82–191
[~2024-07-05] VITALS: Ht 157.5 cm; Wt 90.7 kg
[~2024-07-05 10:36] MED LIST changes: +CALCIUM ACETAT667 M2; +HUMALOG100 UNIT/1 SC; +HYDRA25; +INSULIN GL100 UNIT/1 SC; +OXYC5 PO; +REGLAN1013 PO
[2024-07-05] MEDS ORDERED: Ondansetron HCl 2 MG / ML 2ML Vial IV ONE (11:05)
[2024-07-05] MEDS ORDERED: HYDROmorphone HCl/Pf 1MG SYR IV ONE ×4 (11:05→17:55)
[2024-07-05] MEDS ORDERED: Norco 5-325 Ta1 EACH PO (12:20)
[2024-07-05] MEDS ORDERED: OxyCODONE 5 mg/Acetamin 325 mg TABLET PO ONE (12:40)
[2024-07-05 15:58] LABS: BASOPHILS PERCENT AUTO 1 % (0-2); EOSINOPHILS ABSOLUTE AUTO 0.49 K/mm3 (0.00-0.68); EOSINOPHILS PERCENT AUTO 3 % (0-6); Hemoglobin 9.2 g/dL (11.5-16.0); IMMATURE GRAN ABSOLUTE AUTO 0.09 K/mm3 (0.00-0.10); IMMATURE GRAN PERCENT AUTO 1 % (0-1); LYMPHOCYTES ABSOLUTE AUTO 1.74 K/mm3 (0.84-5.20); LYMPHOCYTES PERCENT AUTO 10 % (21-46); MONOCYTES ABSOLUTE AUTO 1.51 K/mm3 (0.16-1.47); MONOCYTES PERCENT AUTO 8 % (4-13); Mean Corpuscular HGB Conc 31.7 g/dL (31.5-36.5); Mean Corpuscular Volume 95 fL (80-100); NEUTROPHILS ABSOLUTE AUTO 13.97 K/mm3 (1.96-9.15); NEUTROPHILS PERCENT AUTO 78 % (41-73); Platelet Count 313 K/mm3 (150-400); RDW Coefficient Variation 13.6 % (11.7-14.2); RDW Standard Deviation 46.2 fL (35.1-46.3); Red Blood Cell Count 3.07 M/mm3 (3.80-5.20)
[2024-07-05 16:22] LABS: Albumin, Blood 2.6 g/dL (3.4-5.0); Albumin/Globulin Ratio 0.6 (0.8-1.8); Bilirubin, Total 0.4 mg/dL (0.1-1.0); Bun/Creatinine Ratio 7.3 (12.0-20.0); Creatinine, Blood 11.6 mg/dL (0.40-1.00); Globulin, Blood 4.2 g/dL (2.2-4.0); Potassium, Blood 7.6 mmol/L (3.5-5.5); Total Protein, Blood 6.8 g/dL (6.4-8.2)
== END 2024-07-05 22:33 | disposition home or self-care (01) ==
LOC: ER 10:36
PROVIDERS: Physician Assistant
DX: S72.332A Displaced oblique fracture of shaft of left femur, initial encounter for closed fracture (principal); M97.02XA Periprosthetic fracture around internal prosthetic left hip joint, initial encounter; E87.5 Hyperkalemia; I12.9 Hypertensive chronic kidney disease with stage 1 through stage 4 chronic kidney disease, or unspecified chronic kidney disease; N18.30 Chronic kidney disease, stage 3 unspecified; E03.9 Hypothyroidism, unspecified; E10.22 Type 1 diabetes mellitus with diabetic chronic kidney disease; J45.909 Unspecified asthma, uncomplicated; Z86.73 Personal history of transient ischemic attack (TIA), and cerebral infarction without residual deficits; Z79.899 Other long term (current) drug therapy; Z79.4 Long term (current) use of insulin; Z88.8 Allergy status to other drugs, medicaments and biological substances
CPT/HCPCS: 73502; 73552; 73560-LT; 73610; 80053; 85025; 93005; 93010; 96374; 96375; 96376; 99284-25; A9270; J1170; J2405

== ENCOUNTER → 2024-07-26 | Outpatient (CLI) | payer OTHER ==
[2024-07-26 17:52] LABS: BASOPHILS ABSOLUTE AUTO 0.07 K/mm3 (0.00-0.23); BASOPHILS PERCENT AUTO 1 % (0-2); EOSINOPHILS ABSOLUTE AUTO 0.48 K/mm3 (0.00-0.68); EOSINOPHILS PERCENT AUTO 4 % (0-6); Hematocrit 32.2 % (33.0-51.0); Hemoglobin 9.7 g/dL (11.5-16.0); IMMATURE GRAN ABSOLUTE AUTO 0.04 K/mm3 (0.00-0.10); IMMATURE GRAN PERCENT AUTO 0 % (0-1); LYMPHOCYTES ABSOLUTE AUTO 1.76 K/mm3 (0.84-5.20); LYMPHOCYTES PERCENT AUTO 16 % (21-46); MONOCYTES ABSOLUTE AUTO 1.25 K/mm3 (0.16-1.47); MONOCYTES PERCENT AUTO 11 % (4-13); Mean Corpuscular HGB Conc 30.1 g/dL (31.5-36.5); Mean Corpuscular Volume 100 fL (80-100); Mean Platelet Volume 11.1 fL (9.1-12.4); NEUTROPHILS ABSOLUTE AUTO 7.32 K/mm3 (1.96-9.15); NEUTROPHILS PERCENT AUTO 67 % (41-73); Platelet Count 405 K/mm3 (150-400); RDW Coefficient Variation 15.4 % (11.7-14.2); RDW Standard Deviation 56.7 fL (35.1-46.3); Red Blood Cell Count 3.23 M/mm3 (3.80-5.20); White Blood Cell Count 10.92 K/mm3 (4.00-11.30)
[2024-07-26 18:38] LABS: Albumin, Blood 2.9 g/dL (3.4-5.0); Albumin/Globulin Ratio 0.6 (0.8-1.8); Bilirubin, Total 0.5 mg/dL (0.1-1.0); Bun/Creatinine Ratio 7.8 (12.0-20.0); Calcium, Blood 9.3 mg/dL (8.5-10.1); Creatinine, Blood 5.38 mg/dL (0.40-1.00); Globulin, Blood 4.6 g/dL (2.2-4.0); Percent Saturation 28.1 % (15.0-50.0); Potassium, Blood 5.8 mmol/L (3.5-5.5); Total Protein, Blood 7.5 g/dL (6.4-8.2)
== END | disposition home or self-care (01) ==
LOC: LAB 15:55 → LAB SHORT 15:55
PROVIDERS: Family Medicine
DX: N28.9 Disorder of kidney and ureter, unspecified (principal); D64.9 Anemia, unspecified
CPT/HCPCS: 80053; 82607; 82728; 82746; 83540; 83550; 85025

== ENCOUNTER 2024-08-02 09:26 | Emergency (ER) | payer MEDICARE, OTHER ==
[~2024-08-02] VITALS: Ht 157.5 cm; Wt 90.7 kg
[2024-08-02] MEDS ORDERED: Pantoprazole Sodium 40 MG Injection IV ONE (09:55)
[2024-08-02] MEDS ORDERED: NS 1,000 ML IV SCH (09:55)
[2024-08-02] MEDS ORDERED: Ondansetron HCl 2 MG / ML 2ML Vial IV ONE ×2 (09:55→12:30)
[2024-08-02 10:32] LABS: Calcium, Ionized (POC) 1.02 mmol/L (1.10-1.46); Chloride (POC) 93 mmol/L (98-108); Creatinine (POC) 7.1 mg/dL (0.6-1.0); Glucose (ISTAT POC) 351 mg/dL (70-99); Hemoglobin (POC) 7.8 g/dL (12.0-16.0); Potassium (POC) 7.6 mmol/L (3.5-5.5); Sodium (POC) 129 mmol/L (135-148); Total CO2 (POC) 28 mmol/L (21-32)
[2024-08-02] MEDS ORDERED: Calcium Gluconate 10% 100 MG/ML INJ IV ONE (10:35)
[2024-08-02] MEDS ORDERED: Sodium Bicarb 8.4% 1 MEQ/ML 50 ML Vial IV ONE (10:35)
[2024-08-02] MEDS ORDERED: Albuterol 2.5 MG/3 ML VIAL INH SCH (10:35)
[2024-08-02] MEDS ORDERED: Insulin Regular 100 Unit/ML 1ML Dose IV ONE ×2 (10:35→14:00)
[2024-08-02] MEDS ORDERED: Dextrose 50% 50 ML Syringe IV ONE ×2 (10:40→14:00)
[2024-08-02] MEDS ORDERED: Furosemide 10 MG/ML 4ML Vial IV ONE (10:40)
[2024-08-02] MEDS ORDERED: NS 1,000 ML IV ONE ×2 (10:40→13:33)
[2024-08-02] MEDS ORDERED: Dextrose 50% 50 ML Vial IV ONE ×2 (10:45→14:10)
[2024-08-02 10:46] LABS: BASOPHILS ABSOLUTE AUTO 0.08 K/mm3 (0.00-0.23); BASOPHILS PERCENT AUTO 1 % (0-2); EOSINOPHILS ABSOLUTE AUTO 0.33 K/mm3 (0.00-0.68); EOSINOPHILS PERCENT AUTO 3 % (0-6); Hematocrit 23.4 % (33.0-51.0); Hemoglobin 7.2 g/dL (11.5-16.0); IMMATURE GRAN ABSOLUTE AUTO 0.05 K/mm3 (0.00-0.10); IMMATURE GRAN PERCENT AUTO 0 % (0-1); LYMPHOCYTES ABSOLUTE AUTO 1.85 K/mm3 (0.84-5.20); LYMPHOCYTES PERCENT AUTO 14 % (21-46); MONOCYTES PERCENT AUTO 7 % (4-13); Mean Corpuscular HGB 30.1 pg (26.0-34.0); Mean Corpuscular HGB Conc 30.8 g/dL (31.5-36.5); Mean Corpuscular Volume 98 fL (80-100); NEUTROPHILS ABSOLUTE AUTO 10.13 K/mm3 (1.96-9.15); NEUTROPHILS PERCENT AUTO 75 % (41-73); Platelet Count 352 K/mm3 (150-400); RDW Coefficient Variation 14.5 % (11.7-14.2); RDW Standard Deviation 51.8 fL (35.1-46.3); Red Blood Cell Count 2.39 M/mm3 (3.80-5.20); White Blood Cell Count 13.44 K/mm3 (4.00-11.30)
[2024-08-02 10:59] LABS: Magnesium, Blood 2.5 mg/dL (1.6-2.4)
[2024-08-02 11:05] LABS: Prothrombin Time Results 10.7 Sec (9.7-11.5)
[2024-08-02 11:06] LABS: Albumin, Blood 2.6 g/dL (3.4-5.0); Albumin/Globulin Ratio 0.7 (0.8-1.8); Bilirubin, Total 0.4 mg/dL (0.1-1.0); Calcium, Blood 8.9 mg/dL (8.5-10.1); Creatinine, Blood 6.54 mg/dL (0.40-1.00); Globulin, Blood 3.9 g/dL (2.2-4.0); Potassium, Blood 7.7 mmol/L (3.5-5.5); Total Protein, Blood 6.5 g/dL (6.4-8.2)
[2024-08-02] MEDS ORDERED: Pantoprazole Sodium 40 MG in NS 50 ML IV SCH (12:35)
[2024-08-02] MEDS ORDERED: HYDROmorphone HCl/Pf 1MG SYR IV ONE (13:35)
[2024-08-02 13:43] LABS: Bun/Creatinine Ratio 7.2 (12.0-20.0); Calcium, Blood 8.9 mg/dL (8.5-10.1); Creatinine, Blood 6.7 mg/dL (0.40-1.00); Magnesium, Blood 2.5 mg/dL (1.6-2.4); Potassium, Blood 7.2 mmol/L (3.5-5.5)
[2024-08-02 14:10] LABS: Hemoglobin 7.8 g/dL (11.5-16.0); Mean Corpuscular HGB 29.2 pg (26.0-34.0); Mean Corpuscular HGB Conc 31.2 g/dL (31.5-36.5); Mean Corpuscular Volume 94 fL (80-100); Mean Platelet Volume 11.5 fL (9.1-12.4); Platelet Count 322 K/mm3 (150-400); RDW Coefficient Variation 16.1 % (11.7-14.2); RDW Standard Deviation 55.5 fL (35.1-46.3); Red Blood Cell Count 2.67 M/mm3 (3.80-5.20)
[2024-08-02 14:15] VITALS: BP 107/59
== END 2024-08-02 14:35 | disposition short-term general hospital (02) ==
LOC: ER 09:26
PROVIDERS: Student in an Organized Health Care Education/Training Program
DX: K92.0 Hematemesis (principal); I12.0 Hypertensive chronic kidney disease with stage 5 chronic kidney disease or end stage renal disease; E11.22 Type 2 diabetes mellitus with diabetic chronic kidney disease; N18.6 End stage renal disease; E03.9 Hypothyroidism, unspecified; J45.909 Unspecified asthma, uncomplicated; E11.42 Type 2 diabetes mellitus with diabetic polyneuropathy; E78.5 Hyperlipidemia, unspecified; E11.319 Type 2 diabetes mellitus with unspecified diabetic retinopathy without macular edema; Z87.891 Personal history of nicotine dependence; Z79.4 Long term (current) use of insulin; Z79.899 Other long term (current) drug therapy; Z88.8 Allergy status to other drugs, medicaments and biological substances
CPT/HCPCS: 36430; 36556; 80047; 80048; 80053; 83605; 83735; 84484; 85014; 85025; 85027; 85610; 85730; 86850; 86900; 86901; 86923; 93005; 93010; 96361-59; 96365-59; 96366-59; 96375-59; 96376-59; 99285-25; C1751; J0612; J1170; J1815; J1940; J2405; J2470; J7030; J7799; P9016

== ENCOUNTER → 2024-12-21 | Outpatient (CLI) | payer MEDICARE, OTHER ==
[~2024-12-21] MED LIST changes: -CALCIUM ACETAT667 M2; +CALCIUM ACETAT667 M2 PO; -EUTHYROX88 MCG PO; -HYDRA25; +HYDRA25 PO; -metolazone PO
== END | disposition home or self-care (01) ==
LOC: LAB DAV 07:05
DX: N18.6 End stage renal disease (principal)
CPT/HCPCS: 84132

== ENCOUNTER 2025-01-16 05:56 | Inpatient (IN) | payer MEDICARE, OTHER ==
[~2025-01-16] VITALS: Ht 157.5 cm; Wt 96.4 kg
[2025-01-16 08:41] LABS: BASOPHILS ABSOLUTE AUTO 0.06 K/mm3 (0.00-0.23); BASOPHILS PERCENT AUTO 1 % (0-2); EOSINOPHILS PERCENT AUTO 4 % (0-6); Hematocrit 34.1 % (33.0-51.0); IMMATURE GRAN ABSOLUTE AUTO 0.03 K/mm3 (0.00-0.10); IMMATURE GRAN PERCENT AUTO 0 % (0-1); LYMPHOCYTES ABSOLUTE AUTO 1.31 K/mm3 (0.84-5.20); LYMPHOCYTES PERCENT AUTO 13 % (21-46); MONOCYTES ABSOLUTE AUTO 1.34 K/mm3 (0.16-1.47); MONOCYTES PERCENT AUTO 14 % (4-13); Mean Corpuscular HGB 30.5 pg (26.0-34.0); Mean Corpuscular HGB Conc 32.3 g/dL (31.5-36.5); Mean Corpuscular Volume 95 fL (80-100); Mean Platelet Volume 11.5 fL (9.1-12.4); NEUTROPHILS PERCENT AUTO 68 % (41-73); Platelet Count 236 K/mm3 (150-400); RDW Coefficient Variation 15.8 % (11.7-14.2); RDW Standard Deviation 54.3 fL (35.1-46.3); Red Blood Cell Count 3.61 M/mm3 (3.80-5.20); White Blood Cell Count 9.94 K/mm3 (4.00-11.30)
[2025-01-16 09:12] LABS: Albumin, Blood 3.3 g/dL (3.4-5.0); Albumin/Globulin Ratio 0.7 (0.8-1.8); Bilirubin, Total 0.4 mg/dL (0.1-1.0); Bun/Creatinine Ratio 7.1 (12.0-20.0); Calcium, Blood 9.3 mg/dL (8.5-10.1); Creatinine, Blood 8.47 mg/dL (0.40-1.00); Globulin, Blood 4.6 g/dL (2.2-4.0); Potassium, Blood 6.8 mmol/L (3.5-5.5); Total Protein, Blood 7.9 g/dL (6.4-8.2)
[2025-01-16] MEDS ORDERED: Insulin Regular 100 Unit/ML 1ML Dose IV ONE (09:40)
[2025-01-16] MEDS ORDERED: Dextrose 50% 50 ML Syringe IV ONE (09:40)
[2025-01-16] MEDS ORDERED: Dextrose 50% 50 ML Vial IV ONE (09:50)
[2025-01-16] MEDS ORDERED: FLU VACC TS2024-25(6MOS UP)/PF 45 MCG/0.5 ML SYRINGE IM SCH (10:35)
[2025-01-16 14:08] VITALS: BP 165/93
[2025-01-16 15:22] LABS: Albumin, Blood 3.1 g/dL (3.4-5.0); Anion Gap 13 mmol/L (3-11); Blood Urea Nitrogen 67 mg/dL (8-24); Bun/Creatinine Ratio 7.7 (12.0-20.0); CO2, Blood 26 mmol/L (21-32); Calcium, Blood 9.2 mg/dL (8.5-10.1); Chloride, Blood 96 mmol/L (98-108); Creatinine, Blood 8.69 mg/dL (0.40-1.00); Glomerular Filtration Rate 6 (60-); Glucose, Blood 319 mg/dL (70-99); Phosphorus, Blood 5.7 mg/dL (2.5-4.9); Potassium, Blood 6.1 mmol/L (3.5-5.5); Sodium, Blood 129 mmol/L (136-145)
[2025-01-16] MEDS ORDERED: Sodium Zirconium Cyclosilicate 10 GM Packet PO ONE ×2 (15:25→21:25)
--- NOTE | 2025-01-16 15:26 | NUR ---
1520- THIS RN NOTIFIED MD CASTREJON OF CRITICAL LABS K+=6.1 AND CREAT=8.69.
[2025-01-16 15:48] VITALS: BP 149/81
[2025-01-16] MEDS ORDERED: Sodium Zirconium Cyclosilicate 10 GM Packet PO SCH (17:00)
[2025-01-16] MEDS ORDERED: ATOR20 PO (17:04)
[2025-01-16] MEDS ORDERED: AMLO10 PO (17:04)
--- NOTE | 2025-01-16 18:30 | NUR ---
SUMMARY- AAOX4. CALM AND COOPERATIVE THIS SHIFT. NO COMPLAINTS OF CHEST PAIN/PRESSURE. PT ON RA. X1 ASSIST IN ROOM. PT NPO IN ANTICIPATION OF SURGERY TO REPLACE HD CATHETER.
--- NOTE | 2025-01-16 18:31 | NUR ---
183- CALLED MD CASTREJON WITH CRITICAL RESULTS OF K+=7.0. MS STATED TO GIVE 1 AMPULE BICARB IV, 1 AMPULE CALCIUM GLUCONATE IV, AND 6 UNITS OF REGULAR INSULIN IV NOW STAT.
[2025-01-16] MEDS ORDERED: Sodium Bicarb 8.4% 1 MEQ/ML 50 ML Vial IV ONE (18:40)
[2025-01-16] MEDS ORDERED: Insulin Regular 100 UNIT/ML 10ML Vial IV ONE (18:45)
[2025-01-16] MEDS ORDERED: Calcium Gluconate 10% 100 MG/ML INJ IV ONE (18:45)
--- NOTE | 2025-01-16 18:48 | NUR ---
183- MD CASTREJON GAVE VERBAL TO ORDER K+ STAT LAB AT [address] [facility].
[2025-01-16] MEDS ORDERED: NS 250 ML IV PRN (18:50)
[2025-01-16] MEDS ORDERED: CALCIUM GLUC IN NACL, ISO-OSM 50 ML IV ONE (18:50)
[2025-01-16 20:49] VITALS: BP 146/105
--- NOTE | 2025-01-16 21:20 | NUR ---
I SPOKE TO DR. ELISEO IBARRA, UPDATED ON MOST RECENT POTASSIUM OF 6.2 - HE REPORTED REPLACEMENT DIALYSIS CATH COULD BE REPLACED IN AM. I THEN SPOKE TO DR. CASTREJON AND RELAYED THE ABOVE INFORMATION TO HIM ALSO - NEW ORDER FOR [facility] RECEIVED. WILL RELAY THE ABOVE INFORMATION TO ONCOMING STAFF IN THE AM.
[2025-01-16] MEDS ORDERED: Polyethylene Glycol 3350 17 gm PO PRN (23:20)
[2025-01-16] MEDS ORDERED: Calcitriol 0.25 MCG Cap PO SCH (23:25)
[2025-01-16] MEDS ORDERED: Acetamin/Butalbital/Caffeine Tab PO PRN (23:25)
[2025-01-16] MEDS ORDERED: Metoclopramide HCl 10 MG Tab PO PRN (23:25)
[2025-01-17] VITALS (20 sets, daily range): BP systolic 111–214; BP diastolic 56–98
[2025-01-17] MEDS ORDERED: Insulin Glargine-Yfgn 100 Unit/mL 3 ML SYR SC SCH ×2 (00:33→21:00)
[2025-01-17] MEDS ORDERED: Losartan Potassium 50 MG Tab PO ONE (00:55)
[2025-01-17] MEDS ORDERED: Spironolactone 50 MG Tab PO ONE (00:55)
[2025-01-17] MEDS ORDERED: Atorvastatin 10 MG Tab PO ONE (00:55)
[2025-01-17] MEDS ORDERED: Gabapentin 300 MG Cap PO ONE (00:55)
[2025-01-17] MEDS ORDERED: Insulin Human Lispro 100 Units/ML 3ML Syringe SC SCH (00:55)
[2025-01-17] MEDS ORDERED: CloNIDine 0.3 MG Tab PO ONE (00:55)
[2025-01-17] MEDS ORDERED: Loratadine 10 MG Tab PO PRN (04:10)
[2025-01-17 04:36] LABS: Hematocrit 30.5 % (33.0-51.0); Hemoglobin 9.9 g/dL (11.5-16.0); Mean Corpuscular HGB 30.7 pg (26.0-34.0); Mean Corpuscular HGB Conc 32.5 g/dL (31.5-36.5); Mean Corpuscular Volume 94 fL (80-100); Mean Platelet Volume 11.5 fL (9.1-12.4); Platelet Count 226 K/mm3 (150-400); RDW Coefficient Variation 15.7 % (11.7-14.2); RDW Standard Deviation 53.4 fL (35.1-46.3); Red Blood Cell Count 3.23 M/mm3 (3.80-5.20); White Blood Cell Count 7.29 K/mm3 (4.00-11.30)
[2025-01-17 05:07] LABS: Magnesium, Blood 2.8 mg/dL (1.6-2.4)
[2025-01-17] MEDS ORDERED: Acetaminophen 325 MG TABLET PO PRN (05:20)
[2025-01-17 05:22] LABS: Albumin, Blood 2.9 g/dL (3.4-5.0); Anion Gap 15 mmol/L (3-11); Blood Urea Nitrogen 72 mg/dL (8-24); Bun/Creatinine Ratio 7.3 (12.0-20.0); CO2, Blood 25 mmol/L (21-32); Calcium, Blood 8.5 mg/dL (8.5-10.1); Chloride, Blood 99 mmol/L (98-108); Creatinine, Blood 9.87 mg/dL (0.40-1.00); Glomerular Filtration Rate 5 (60-); Glucose, Blood 451 mg/dL (70-99); Phosphorus, Blood 5.7 mg/dL (2.5-4.9); Potassium, Blood 6.5 mmol/L (3.5-5.5); Sodium, Blood 132 mmol/L (136-145)
--- NOTE | 2025-01-17 05:29 | NUR ---
NEW ORDER FOR [facility] 10 NOW - AND PER DR. CASTREJON GIVE THE 0800 DOSE ALSO - WILL REPORT THIS OFF TO ONCOMING SHIFT.
[2025-01-17] MEDS ORDERED: Sodium Zirconium Cyclosilicate 10 GM Packet PO ONE (05:30)
--- NOTE | 2025-01-17 05:57 | NUR ---
PT IS REFUSING ANY ADDITIONAL INSULIN - SHE FEELS THE INSULIN DOSE I JUST GAVE HER MAY DROP HER BLOOD SUGAR TOO MUCH. PT IS AWARE OF HER S/S OF LOW BLOOD SUGARS - SHE WILL ALL IF SHE HAS ANY OF THESE SYMPTOMS.
[2025-01-17] MEDS ORDERED: Levothyroxine Sodium 0.1 MG Tab PO SCH (06:00)
--- NOTE | 2025-01-17 06:29 | NUR ---
SHIFT SUMMARY - POTASSIUM LEVEL CRITICAL AGAIN THIS AM - DR. CASTREJON CONTACTED - NEW ORDERS OBTAINED. SEE EMAR FOR MEDICATIONS GIVEN FOR POTASSIUM LEVEL REDUCTION. CONSULT IN PLACE FOR IR TODAY FOR DIALYSIS CATH REPLACEMENT. DR. CASTREJON IN THIS AM TO SEE THE PT. SLEPT OVER LAST NOC - LEFT THIS AM. PT MEDICATED X1 FOR HEADACHE PAIN. PT GIVEN INSULIN THIS AM - REFUSED ANY ADDITIONAL DOSE OF INSULIN THIS AM - SO WAS NOT NOTIFIED. PT IS AWARE OF S/S OF LOW BLOOD SUGARS - WHICH BOTH HER AND HER VOICED COULD POTENTIALLY OCCUR - BLOOD SUGAR WAS 432 - PT HAS BEEN NPO SINCE MIDNIGHT, EXCEPT ICE CHIPS. CALL LIGHT WITHIN REACH. BED IN LOW POSITION. WILL REPORT OFF TO ONCOMING SHIFT.
[2025-01-17] MEDS ORDERED: Insulin Human Lispro 100 Units/ML 3ML Syringe SC STA (07:57)
[2025-01-17] MEDS ORDERED: Calcium Acetate 667 MG Gel Cap PO SCH (08:30)
[2025-01-17] MEDS ORDERED: AmLODIPine Besylate 5 MG Tab PO SCH (09:00)
[2025-01-17] MEDS ORDERED: Heparin Sodium 5000 Units/ML 1ML MDV SC SCH (09:00)
[2025-01-17] MEDS ORDERED: CloNIDine 0.3 MG Tab PO SCH (09:00)
[2025-01-17] MEDS ORDERED: Heparin Sodium 1000 Units/ML 10ML MDV ONE (13:57)
[2025-01-17] MEDS ORDERED: NS 250 ML IV ONE (13:57)
[2025-01-17] MEDS ORDERED: CeFAZolin Sodium 2,000 MG VIAL ONE (14:49)
[2025-01-17] MEDS ORDERED: NS 1,000 ML IV ONE (14:50)
[2025-01-17] MEDS ORDERED: Midazolam HCl 1MG / ML 2ML Vial ONE (14:50)
[2025-01-17] MEDS ORDERED: NS 100 ML IV ONE (14:50)
[2025-01-17] MEDS ORDERED: FentaNYL Citrate 50 MCG/ML 2 ML Injection ONE (14:50)
[2025-01-17] MEDS ORDERED: Heparin Sodium 10,000 Units/ML 1ML MDV ONE (15:09)
--- NOTE | 2025-01-17 18:25 | NUR ---
PATIENT IS ALERT AND ORIENTED AND COOPERATIVE WITH CARE. PERMACATH PORT PLACED TODAY. PATIENT IS IN DIALYSIS AT THIS TIME. PATIENT WANTS TO DISCHARGE HOME FOLLOWING DIALYSIS.
--- NOTE | 2025-01-17 19:48 | NUR ---
Pt back from dialysis. Discharge instructions reviewed with pt and pts so. Discussed ways to prevent dislodgment. Pt stated previously had gone to bed with just gauze and tape dressing. Given a couple of tegredrm dressings for backup. IV site removed and pt d/c with so.
[2025-01-17] MEDS ORDERED: Gabapentin 300 MG Cap PO SCH (21:00)
[2025-01-17] MEDS ORDERED: Docusate Sodium 100 MG Cap PO SCH (21:00)
[2025-01-17] MEDS ORDERED: Spironolactone 50 MG Tab PO SCH (21:00)
[2025-01-17] MEDS ORDERED: Atorvastatin 10 MG Tab PO SCH (21:00)
[2025-01-17] MEDS ORDERED: Losartan Potassium 50 MG Tab PO SCH (21:00)
[2025-01-23] MEDS ORDERED: Ergocalciferol 50000 Intn'l Units PO SCH (04:15)
== END 2025-01-17 20:22 | disposition home or self-care (01) | DRG 698 ==
LOC: ER 05:56 → MEDS 05:57 → ERHOLD 05:57 → MEDS 14:02
PROVIDERS: Emergency Medicine; Internal Medicine Nephrology; ADMIT Internal Medicine
PROC: 5A1D70Z Performance of Urinary Filtration, Intermittent, Less than 6 Hours Per Day (ICD-10-PCS; principal; 2025-01-17)
DX: T82.42XA Displacement of vascular dialysis catheter, initial encounter (principal); N18.6 End stage renal disease; I12.0 Hypertensive chronic kidney disease with stage 5 chronic kidney disease or end stage renal disease; E87.1 Hypo-osmolality and hyponatremia; Y71.8 Miscellaneous cardiovascular devices associated with adverse incidents, not elsewhere classified; Z99.2 Dependence on renal dialysis; E10.22 Type 1 diabetes mellitus with diabetic chronic kidney disease; E87.5 Hyperkalemia; E83.39 Other disorders of phosphorus metabolism; E21.3 Hyperparathyroidism, unspecified; E10.40 Type 1 diabetes mellitus with diabetic neuropathy, unspecified; E10.43 Type 1 diabetes mellitus with diabetic autonomic (poly)neuropathy; K31.84 Gastroparesis; E55.9 Vitamin D deficiency, unspecified; Z79.899 Other long term (current) drug therapy; Z79.4 Long term (current) use of insulin; Z79.890 Hormone replacement therapy; Z86.73 Personal history of transient ischemic attack (TIA), and cerebral infarction without residual deficits; J45.909 Unspecified asthma, uncomplicated
CPT/HCPCS: 36415; 71045; 76937; 80053; 80069; 82947; 83735; 84132; 85025; 85027; 96374; 96375; 99152; 99153; 99285-25; A9270; C1750; C1769; C1894; G0378; J0612; J0690; J1644; J1815; J2250; J3010; J7030; J7050; J7799

== ENCOUNTER → 2025-02-08 | Outpatient (CLI) | payer MEDICARE, OTHER | END | disposition home or self-care (01) | LOC: LAB DAV 10:55 | DX: N18.6 End stage renal disease (principal) | CPT/HCPCS: 84132 ==

== ENCOUNTER → 2025-08-30 | Outpatient (CLI) | payer MEDICARE, OTHER ==
[2025-08-30 09:23] LABS: CHOL/HDL RATIO 9.6; Cholesterol 191 mg/dL (50-200); HDL Cholesterol 20 mg/dL (>39); LDL/HDL RATIO 5.8; Low Density Lipoprotein Chol 116 mg/dL (0-110); Thyroid Stimulating Hormone 11.300 uIU/mL (0.360-4.800); Triglycerides 274 mg/dL (30-140); Very Low Density Lipoprot Chol 54 mg/dL (6-28)
== END ==
LOC: LAB SHORT 07:00 → LAB 07:00
PROVIDERS: Internal Medicine Endocrinology, Diabetes & Metabolism
DX: E03.8 Other specified hypothyroidism (principal); E10.65 Type 1 diabetes mellitus with hyperglycemia
CPT/HCPCS: 80061; 83036; 84439; 84443

== ENCOUNTER 2025-10-08 10:48 | Inpatient (IN) | payer MEDICARE, OTHER ==
[~2025-10-08] VITALS: Ht 172.7 cm; Wt 97.0 kg
[2025-10-08] VITALS (43 sets, daily range): BP systolic 92–184; BP diastolic 44–139
[2025-10-08 11:13] LABS: Calcium, Ionized (POC) 0.81 mmol/L (1.10-1.46); Chloride (POC) 95 mmol/L (98-108); Creatinine (POC) 8.8 mg/dL (0.6-1.0); Glucose (ISTAT POC) 234 mg/dL (70-99); Hematocrit (POC) 36.0 % (36.0-46.0); Hemoglobin (POC) 12.2 g/dL (12.0-16.0); Potassium (POC) 7.5 mmol/L (3.5-5.5); Sodium (POC) 129 mmol/L (135-148); Total CO2 (POC) 22 mmol/L (21-32)
[2025-10-08] MEDS ORDERED: Albuterol 2.5 MG/3 ML VIAL INH SCH (11:15)
[2025-10-08] MEDS ORDERED: Amiodarone HCl 450 MG in NS 250 ML IV SCH (11:15)
[2025-10-08] MEDS ORDERED: Insulin Regular 100 Unit/ML 1ML Dose IV ONE (11:15)
[2025-10-08] MEDS ORDERED: Amiodarone HCl 50 MG / ML 3 ML Amp IV ONE ×2 (11:15→17:24)
[2025-10-08 11:37] LABS: pH Blood Venous 7.27 (7.34-7.37)
[2025-10-08 11:38] LABS: BASOPHILS ABSOLUTE AUTO 0.18 K/mm3 (0.00-0.23); BASOPHILS PERCENT AUTO 1 % (0-2); EOSINOPHILS ABSOLUTE AUTO 0.09 K/mm3 (0.00-0.68); EOSINOPHILS PERCENT AUTO 0 % (0-6); Hematocrit 36.3 % (33.0-51.0); Hemoglobin 10.9 g/dL (11.5-16.0); IMMATURE GRAN ABSOLUTE AUTO 0.96 K/mm3 (0.00-0.10); IMMATURE GRAN PERCENT AUTO 4 % (0-1); LYMPHOCYTES ABSOLUTE AUTO 4.56 K/mm3 (0.84-5.20); LYMPHOCYTES PERCENT AUTO 19 % (21-46); MONOCYTES ABSOLUTE AUTO 1.21 K/mm3 (0.16-1.47); MONOCYTES PERCENT AUTO 5 % (4-13); Mean Corpuscular HGB Conc 30.0 g/dL (31.5-36.5); Mean Corpuscular Volume 101 fL (80-100); NEUTROPHILS ABSOLUTE AUTO 17.30 K/mm3 (1.96-9.15); NEUTROPHILS PERCENT AUTO 71 % (41-73); NRBC ABSOLUTE 0.02 K/mm3 (0.00-0.02); NRBC Auto 0.1 /100 WBC (0.0-0.2); Platelet Count 308 K/mm3 (150-400); RDW Coefficient Variation 14.9 % (11.7-14.2); RDW Standard Deviation 53.9 fL (35.1-46.3)
[2025-10-08 11:49] LABS: Magnesium, Blood 3.1 mg/dL (1.6-2.4)
[2025-10-08 11:51] LABS: Alanine Aminotransfer (ALT/SGP 36.0 U/L (12-78); Albumin, Blood 3.2 g/dL (3.4-5.0); Albumin/Globulin Ratio 0.8 (0.8-1.8); Anion Gap 27.0 mmol/L (3-11); Aspartate Aminotrans (AST/SGOT 90.0 U/L (12-37); Bilirubin, Total 1.7 mg/dL (0.1-1.0); Blood Urea Nitrogen 49.0 mg/dL (8-24); CO2, Blood 19.0 mmol/L (21-32); Calcium, Blood 8.4 mg/dL (8.5-10.1); Chloride, Blood 90.0 mmol/L (98-108); Creatinine, Blood 8.18 mg/dL (0.40-1.00); Globulin, Blood 4.2 g/dL (2.2-4.0); Glucose, Blood 234.0 mg/dL (70-99); Potassium, Blood 7.5 mmol/L (3.5-5.5); Sodium, Blood 128.0 mmol/L (136-145); Total Protein, Blood 7.4 g/dL (6.4-8.2)
[2025-10-08] MEDS ORDERED: FLU VACC TS2025-26(6MOS UP)/PF 45 MCG/0.5 ML SYRINGE IM SCH (13:20)
[2025-10-08] MEDS ORDERED: FentaNYL Citrate 50 MCG/ML 2 ML Injection IV PRN (14:55)
[2025-10-08] MEDS ORDERED: Cetylpyridinium Chloride 1 EA MISC MT SCH ×2 (14:55→20:00)
[2025-10-08] MEDS ORDERED: LORazepam 2 MG/ML 1ML Injection IV PRN (15:00)
[2025-10-08] MEDS ORDERED: Albumin (Human) 25gm/100ml 100 ML IV SCH (15:10)
[2025-10-08] MEDS ORDERED: PREG75 PO (15:23)
[2025-10-08] MEDS ORDERED: CATAPRES0.3 MG PO (15:30)
[2025-10-08] MEDS ORDERED: CefTRIAXone Sodium 1,000 MG in NS 100 ML IV SCH (15:30)
[2025-10-08] MEDS ORDERED: Vancomycin (Pharmacy Consult) IV SCH (15:50)
[2025-10-08] MEDS ORDERED: Hydrogen Peroxide 1.5 % Solution MT SCH (16:00)
--- NOTE | 2025-10-08 16:36 | NUR ---
UPDATE PROPOFOL STARTED D/T MYOCLONIC TYPE "JERKING" MOVEMENTS. CONT TO HAVE NO GAG OR COUGH; NEGATIVE DOLLS EYES.
[2025-10-08] MEDS ORDERED: Darbepoetin (Pharmacy Consult) SC SCH (17:20)
[2025-10-08] MEDS ORDERED: Etomidate 2MG / ML 10ML Vial XX ONE (17:24)
[2025-10-08] MEDS ORDERED: SuccINYLCHOLINE Chloride 100 MG/5 ML 5MLSYR IV ONE (17:24)
[2025-10-08] MEDS ORDERED: Rocuronium Bromide 10 MG/ML 5ML Injection IV ONE (17:24)
[2025-10-08] MEDS ORDERED: Insulin Regular 100 UNIT/ML 10ML Vial SC SCH (18:00)
--- NOTE | 2025-10-08 18:35 | NUR ---
ARRIVAL TO ICU/END OF SHIFT SUMMARY PT ARRIVED TO ICU 5 AT 1410 VIA ED BED AND TRANSFERED OVER TO ICU BED VIA SLIDE SHEET. SHE IS ADMITTED FOR CARDIAC ARREST. SHE IS ON THE VENT WITH VENT SETTINGS AC/VC 16/400/5/55%; NO SPUTUM OUTPUT; RR HIGH 20'S, LOW 30'S. PT ARRIVED WITH NO SEDATION INFUSING; AT THAT TIME NO GAG OR COUGH NOTED. AROUND 1615 PT STARTED HAVING MYOCLONIC "TWITCHING" TYPE MOVEMENT; OCCATIONALLY VENT NONCOMPLIENT; PROPOFOL STARTED AND TITRATED UP TO 40MCG/KG/MIN; CONT TO HAVE SOME "TWITCHING" MOVEMENT BUT IS LESS FREQUENT THAN BEFORE; NEGATIVE DOLLS EYES; CONT TO NOT BE RESPONSIVE TO PAINFUL STIMULI; CONT TO NOT HAVE A GAG OR COUGH. NSR WITH HR 90-100. SBP 140-150'S. OG TO LIS. PEARSON IN PLACE WITH NO URINE OUTPUT. TWO FAILED BUE FISTULAS NOTED; CURRENT FISTULA TO RT THEIGH NOTED WITH BRUIT AND THRILL. DIALSYIS STARTED AND CURRENTLY GOING. FAMILY AT BEDSIDE INCLUDING S.O. AND MOTHER. WILL REPORT TO PM RN WHEN AVAILABLE.
[2025-10-08] MEDS ORDERED: Ipratropium/Albuterol SulF 2.5-0.5MG/3 ML Amp INH PRN (19:10)
[2025-10-08 20:44] LABS: pH Blood Venous 7.44 (7.34-7.37)
--- NOTE | 2025-10-08 20:53 | NUR ---
ASSUMED CARE OF PATIENT AT APPROX 1900 PATIENT IS INTUBATED AND SEDATED ON PROPOFOL. OPENS EYES SPONTANEOUSLY BUT NOT TO COMMAND WITH A FIXED UPWARD GAZE, CORNEAL REFLEX PRESENT. PUPILS UNRESPONSIVE AT THIS TIME. MYOCLONIC JERKS, ATIVAN GIVEN PER EMAR. WHEN COVID NASAL SWAB DONE PATIENT APPEARED TO REACH FOR THIS RNs ARM, NO OTHER PURPOSEFUL MOVEMENT. 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 SP02 98% ON VENT AC PC RATE 16/ PI 9/ PEEP 8/ FI02 40%. LS CLEAR TO DIM/COARSE IN BASES. OG TO LIS, MINIMAL YELLOW BILE OUTPUT. TEMP PEARSON IN PLACE, PATIENT ANURIC AT BASELINE, DIALYSIS DONE AT START OF SHIFT. ORAL CARE DONE. FAMILY AT BEDSIDE
[2025-10-08 20:54] LABS: Magnesium, Blood 2.6 mg/dL (1.6-2.4)
[2025-10-08 20:57] LABS: Blood Urea Nitrogen 34.0 mg/dL (8-24); CO2, Blood 22.0 mmol/L (21-32); Calcium, Blood 8.3 mg/dL (8.5-10.1); Chloride, Blood 92.0 mmol/L (98-108); Creatinine, Blood 5.41 mg/dL (0.40-1.00); Glucose, Blood 219.0 mg/dL (70-99); Phosphorus, Blood 4.4 mg/dL (2.5-4.9); Sodium, Blood 133.0 mmol/L (136-145)
[2025-10-08 21:00] LABS: Anion Gap 24.0 mmol/L (3-11)
[2025-10-08] MEDS ORDERED: Lactobacil 2-S.Thermo-Bifido 1 1 Cap PO SCH (21:00)
[2025-10-08 21:03] LABS: Potassium, Blood 5.0 mmol/L (3.5-5.5)
[2025-10-08] MEDS ORDERED: Acetaminophen 160MG / 5ML 10.15 UDC PT PRN (21:20)
--- NOTE | 2025-10-08 21:22 | NUR ---
PATIENT ALSO HAS CORE TEMP OF 99.9 THAT HAS BEEN STEADILY INCREASING, ICE PACKS AND FAN PLACED ON PATIENT. CALL ED DR. CONTRERAS WITH LABS AND TEMP CONCERN. WILL GIVEN TYLENOL PER ORDERS AND PLACE COOLING BLANKET ON PATIENT.
[2025-10-08 21:57] LABS: Influenza A/2009-H1 Not Detected (NOT DETECT); SARS-Cov-2 (COVID-19), BioFire Not Detected (NOT DETECT)
[2025-10-08] MEDS ORDERED: D5W-NS 1,000 ML IV SCH (22:45)
[2025-10-08] MEDS ORDERED: Insulin Human Regular 100 UNIT in NS 100 ML IV SCH (22:45)
[2025-10-09] VITALS (69 sets, daily range): BP systolic 80–1452; BP diastolic 33–119
[2025-10-09 01:53] LABS: Alanine Aminotransfer (ALT/SGP 36.0 U/L (12-78); Albumin, Blood 3.2 g/dL (3.4-5.0); Albumin/Globulin Ratio 1.0 (0.8-1.8); Anion Gap 14.0 mmol/L (3-11); Aspartate Aminotrans (AST/SGOT 67.0 U/L (12-37); Bilirubin, Total 0.6 mg/dL (0.1-1.0); Blood Urea Nitrogen 37.0 mg/dL (8-24); CO2, Blood 30.0 mmol/L (21-32); Calcium, Blood 7.7 mg/dL (8.5-10.1); Chloride, Blood 96.0 mmol/L (98-108); Creatinine, Blood 6.02 mg/dL (0.40-1.00); Globulin, Blood 3.3 g/dL (2.2-4.0); Glucose, Blood 86.0 mg/dL (70-99); Potassium, Blood 4.6 mmol/L (3.5-5.5); Sodium, Blood 135.0 mmol/L (136-145); Total Protein, Blood 6.5 g/dL (6.4-8.2)
[2025-10-09 05:49] LABS: BASOPHILS ABSOLUTE AUTO 0.07 K/mm3 (0.00-0.23); BASOPHILS PERCENT AUTO 1 % (0-2); EOSINOPHILS ABSOLUTE AUTO 0.03 K/mm3 (0.00-0.68); EOSINOPHILS PERCENT AUTO 0 % (0-6); Hematocrit 26.7 % (33.0-51.0); Hemoglobin 8.5 g/dL (11.5-16.0); IMMATURE GRAN ABSOLUTE AUTO 0.05 K/mm3 (0.00-0.10); IMMATURE GRAN PERCENT AUTO 0 % (0-1); LYMPHOCYTES ABSOLUTE AUTO 0.93 K/mm3 (0.84-5.20); LYMPHOCYTES PERCENT AUTO 7 % (21-46); MONOCYTES ABSOLUTE AUTO 1.17 K/mm3 (0.16-1.47); MONOCYTES PERCENT AUTO 8 % (4-13); Mean Corpuscular HGB Conc 31.8 g/dL (31.5-36.5); NEUTROPHILS ABSOLUTE AUTO 11.89 K/mm3 (1.96-9.15); NEUTROPHILS PERCENT AUTO 84 % (41-73); NRBC ABSOLUTE 0.00 K/mm3 (0.00-0.02); NRBC Auto 0.0 /100 WBC (0.0-0.2); Platelet Count 220 K/mm3 (150-400); RDW Coefficient Variation 15.2 % (11.7-14.2); RDW Standard Deviation 51.8 fL (35.1-46.3)
[2025-10-09 06:03] LABS: Mean Corpuscular Volume 96 fL (80-100)
[2025-10-09 06:10] LABS: Magnesium, Blood 2.5 mg/dL (1.6-2.4)
--- NOTE | 2025-10-09 06:11 | NUR ---
SHIFT SUMMARY PATIENT REMAINS INTUBATED AND SEDATED, ATTEMPTED TO TITRATE SEDATION DOWN AND PATIENT HAS MYOCLONIC JERKS. SP02 97% ON VENT AC PC RATE 16, Pi 15, PEEP 8, FI02 40%, SPUTUM SAMPLE SENT. HR SR 70s. BP VERY LABILE, SYSOLIC RANGING FROM 160s-90s, MIDODRINE AND LEVOPHED ORDER BUT NOT GIVEN DUE TO BP INCREASING AGAIN. PATIENT STARTED ON INSULIN DRIP AND D5 NS, INSULIN DRIP STOPPED DUE TO PATIENTS CBG OF 30, AMP D50 GIVEN AND CONTINUED ON D5 NS DRIP, WHICH IS NOW ALSO TITRATED OFF. BLOOD GLUCOSE VERY LABILE, WILL CONTINUE FREQUENT CBG CHECKS. NO OUTPUT FROM PEARSON THIS SHIFT. TURNED Q2 HOURS. FAMILY REMAINS AT BEDSIDE.
[2025-10-09 06:17] LABS: Alanine Aminotransfer (ALT/SGP 35 U/L (12-78); Albumin, Blood 3.2 g/dL (3.4-5.0); Albumin/Globulin Ratio 0.9 (0.8-1.8); Anion Gap 18 mmol/L (3-11); Aspartate Aminotrans (AST/SGOT 67 U/L (12-37); Bilirubin, Total 1.0 mg/dL (0.1-1.0); Blood Urea Nitrogen 40 mg/dL (8-24); CO2, Blood 26 mmol/L (21-32); Calcium, Blood 7.9 mg/dL (8.5-10.1); Chloride, Blood 91 mmol/L (98-108); Creatinine, Blood 6.09 mg/dL (0.40-1.00); Globulin, Blood 3.6 g/dL (2.2-4.0); Glucose, Blood 231 mg/dL (70-99); Phosphorus, Blood 5.9 mg/dL (2.5-4.9); Sodium, Blood 128 mmol/L (136-145); Total Protein, Blood 6.8 g/dL (6.4-8.2); Vancomycin, Random 25.1 ug/mL
[2025-10-09 06:18] LABS: Potassium, Blood 6.7 mmol/L (3.5-5.5)
[2025-10-09] MEDS ORDERED: CALCIUM GLUC IN NACL, ISO-OSM 50 ML IV ONE ×2 (08:25→12:35)
[2025-10-09] MEDS ORDERED: Pantoprazole Sodium 40 MG Injection IV SCH (09:00)
[2025-10-09] MEDS ORDERED: Heparin Sodium,Porcine 5,000 UNIT/0.5 ML SDV SC SCH (09:00)
[2025-10-09 09:57] LABS: Alanine Aminotransfer (ALT/SGP 35.0 U/L (12-78); Albumin, Blood 3.2 g/dL (3.4-5.0); Albumin/Globulin Ratio 1.0 (0.8-1.8); Anion Gap 24.0 mmol/L (3-11); Aspartate Aminotrans (AST/SGOT 60.0 U/L (12-37); Bilirubin, Total 0.8 mg/dL (0.1-1.0); Blood Urea Nitrogen 39.0 mg/dL (8-24); CO2, Blood 22.0 mmol/L (21-32); Calcium, Blood 7.8 mg/dL (8.5-10.1); Chloride, Blood 89.0 mmol/L (98-108); Creatinine, Blood 6.31 mg/dL (0.40-1.00); Globulin, Blood 3.3 g/dL (2.2-4.0); Glucose, Blood 342.0 mg/dL (70-99); Potassium, Blood 7.5 mmol/L (3.5-5.5); Sodium, Blood 127.0 mmol/L (136-145); Total Protein, Blood 6.5 g/dL (6.4-8.2)
--- NOTE | 2025-10-09 10:45 | NUR ---
PALLIATIVE CARE VISIT: MET WITH MOTHER AND SIGNIFICANT OTHER IN THE ROOM. INTRODUCED THEM TO PALLIATIVE CARE SERVICES. DISCUSSED CONCERNS WITH MOTHER WHO IS DECISION MAKER. PROVIDED EMPATHETIC LISTENING AND MORAL SUPPORT. ANSWERED QUESTIONS.
[2025-10-09] MEDS ORDERED: Insulin Human Lispro 100 Units/ML 3ML Syringe SC SCH (12:00)
[2025-10-09] MEDS ORDERED: levETIRAcetam 4,500 MG in NS 100 ML IV STA (12:26)
[2025-10-09] MEDS ORDERED: Amiodarone HCl 150 MG in NS 100 ML IV ONE (13:40)
[2025-10-09] MEDS ORDERED: Amiodarone HCl 450 MG in NS 250 ML IV SCH (13:40)
--- NOTE | 2025-10-09 13:46 | NUR ---
PALLIATIVE CONSULT RECEIVED S/P CARDIAC ARREST, REQUEST TO SEE FOR: MEDICAL FRAGILITY, ESRD, AND FOR ADVANCED CARE PLANNING. PT IS 35 Y.O. FEMALE, CURRENTLY INTUBATED.
--- NOTE | 2025-10-09 13:55 | NUR ---
PT UPDATE PT'S MONITOR SHOWING NARROW COMPLEX RYTHYM W RATE UP TO 180. EKG DONE AT BEDSIDE SHOWING AFLUTTER. DR. CORDOBA AT BEDSIDE SHOWN EKG. PT GIVEN ADENOSINE X2 PER DR. CORDOBA WITH NO IMPROVEMENT. PT STARTED ON AMIODARONE GTT AND CONVERTED TO SINUS TACH 100'S. DR. CORDOBA AWRAE OF CONVERSION AND AMIODARIONE GTT INFUSING AT 1 MG/MIN.
[2025-10-09 14:35] LABS: Magnesium, Blood 2.4 mg/dL (1.6-2.4)
[2025-10-09 14:42] LABS: Albumin, Blood 3.5 g/dL (3.4-5.0); Anion Gap 17 mmol/L (3-11); Blood Urea Nitrogen 17 mg/dL (8-24); CO2, Blood 26 mmol/L (21-32); Calcium, Blood 9.1 mg/dL (8.5-10.1); Chloride, Blood 97 mmol/L (98-108); Creatinine, Blood 3.34 mg/dL (0.40-1.00); Glucose, Blood 175 mg/dL (70-99); Phosphorus, Blood 5.2 mg/dL (2.5-4.9); Sodium, Blood 136 mmol/L (136-145)
[2025-10-09 14:43] LABS: Potassium, Blood 4.0 mmol/L (3.5-5.5)
[2025-10-09] MEDS ORDERED: Darbepoetin Alfa In Albumn Sol 40 MCG/0.4 ML SC SCH (16:00)
[2025-10-09 16:33] LABS: pH Blood Venous 7.45 (7.34-7.37)
--- NOTE | 2025-10-09 17:03 | NUR ---
DISCHARGE PT DISCHARGED W REACH TEAM AT 1655. THIS RN GAVE REPORT TO MIRANDA CANTU AT [facility]. PT'S FAMILY AT BEDSIDE AT TIME OF DISCHARGE. VSS AT TIME OF DISCHARGE AND CBG CHECKED AT BEDSIDE SHOWING CBG OF 176. REPORT GIVEN TO ROMELIA FROM REACH AT BEDSIDE.
== END 2025-10-09 16:55 | disposition short-term general hospital (02) | DRG 640 ==
LOC: ER 10:48 → ICUE 13:18
PROVIDERS: Internal Medicine Critical Care Medicine; Student in an Organized Health Care Education/Training Program; ADMIT Internal Medicine
PROC: 5A1945Z Respiratory Ventilation, 24-96 Consecutive Hours (ICD-10-PCS; principal; 2025-10-08)
PROC: 5A12012 Performance of Cardiac Output, Single, Manual (ICD-10-PCS; 2025-10-08)
PROC: 0BH17EZ Insertion of Endotracheal Airway into Trachea, Via Natural or Artificial Opening (ICD-10-PCS; 2025-10-08)
PROC: 5A1D70Z Performance of Urinary Filtration, Intermittent, Less than 6 Hours Per Day (ICD-10-PCS; 2025-10-08)
PROC: 30233J1 Transfusion of Nonautologous Serum Albumin into Peripheral Vein, Percutaneous Approach (ICD-10-PCS; 2025-10-08)
PROC: 3E03329 Introduction of Other Anti-infective into Peripheral Vein, Percutaneous Approach (ICD-10-PCS; 2025-10-08)
PROC: 0D9670Z Drainage of Stomach with Drainage Device, Via Natural or Artificial Opening (ICD-10-PCS; 2025-10-08)
PROC: 0T9B70Z Drainage of Bladder with Drainage Device, Via Natural or Artificial Opening (ICD-10-PCS; 2025-10-09)
PROC: 3E033XZ Introduction of Vasopressor into Peripheral Vein, Percutaneous Approach (ICD-10-PCS; 2025-10-09)
DX: E87.5 Hyperkalemia (principal); E10.10 Type 1 diabetes mellitus with ketoacidosis without coma; G93.41 Metabolic encephalopathy; I46.8 Cardiac arrest due to other underlying condition; J96.01 Acute respiratory failure with hypoxia; N18.6 End stage renal disease; J18.9 Pneumonia, unspecified organism; I12.0 Hypertensive chronic kidney disease with stage 5 chronic kidney disease or end stage renal disease; G93.1 Anoxic brain damage, not elsewhere classified; N25.81 Secondary hyperparathyroidism of renal origin; I48.92 Unspecified atrial flutter; E10.22 Type 1 diabetes mellitus with diabetic chronic kidney disease; G40.901 Epilepsy, unspecified, not intractable, with status epilepticus; E03.9 Hypothyroidism, unspecified; E10.42 Type 1 diabetes mellitus with diabetic polyneuropathy; E78.5 Hyperlipidemia, unspecified; E87.70 Fluid overload, unspecified; R60.0 Localized edema; D63.1 Anemia in chronic kidney disease; E10.43 Type 1 diabetes mellitus with diabetic autonomic (poly)neuropathy; K31.84 Gastroparesis; E55.9 Vitamin D deficiency, unspecified; E87.1 Hypo-osmolality and hyponatremia; I16.0 Hypertensive urgency; I95.9 Hypotension, unspecified; Z99.2 Dependence on renal dialysis; Z86.73 Personal history of transient ischemic attack (TIA), and cerebral infarction without residual deficits; Z79.890 Hormone replacement therapy; Z79.4 Long term (current) use of insulin; Z87.891 Personal history of nicotine dependence; Z78.1 Physical restraint status
CPT/HCPCS: 0202U; 31500; 36415; 36680; 51702; 70450; 71045; 71250; 74176; 80047; 80048; 80053; 80069; 80202; 82010; 82330; 82803; 82947; 83605; 83690; 83735; 83880; 84100; 84145; 84443; 84484; 85014; 85025; 87070; 92950; 93005; 93010; 94002; 94003; 94640; 94644; 94664; 96374; 96375; 96376; 99291-25; A9270; C1751; J0153; J0282; J0330; J0612; J0696; J1644; J1815; J1953; J2060; J2470; J2704; J3373; J7040; J7042; J7050; P9047